=== PATIENT | male | born 1970 | race Hispanic/Latino ===

== ENCOUNTER 2017-01-27 23:55 | Observation (INO) | payer MEDICAID ==
[2017-01-28] MEDS ORDERED: Enoxaparin 40 mg Syringe SC STA (02:57)
[2017-01-28] MEDS ORDERED: Oxycodone/Acetaminophen 5/325 mg Tab PO STA (02:57)
[2017-01-28] MEDS ORDERED: Oxycodone/Acetaminophen 5/325 mg Tab ONE (03:03)
[2017-01-28] MEDS ORDERED: Enoxaparin 80 mg Syringe ONE (03:03)
[2017-01-28] MEDS ORDERED: Enoxaparin 30 mg Syringe ONE (03:03)
[2017-01-28 03:29] LABS: BASO % 1.5 % (0.0-2.0); EOS # 0.2 K/uL (0.0-0.7); EOS % 10.5 % (0.0-4.0); HEMOGLOBIN 10.4 g/dL (12.0-18.0); LYMPH # 0.9 K/uL (1.0-4.3); LYMPH % 37.9 % (20.0-40.0); MEAN CELL VOLUME 86.4 fL (80.0-94.0); MEAN CORPUSCULAR HEMOGLOBIN 29.1 pg (27.0-31.0); MEAN CORPUSCULAR HGB CONC 33.7 g/dL (33.0-37.0); MEAN PLATELET VOLUME 7.9 fL (7.2-11.7); MONO # 0.2 K/uL (0.0-0.8); MONO % 6.5 % (0.0-10.0); NEUT % 43.6 % (50.0-75.0); NRBC % 0.1 % (0.0-2.0); RBC 3.57 Mil/uL (4.40-5.90); RED CELL DISTRIBUTION WIDTH 16.1 % (11.5-14.5); WHITE BLOOD COUNT 2.3 K/uL (4.8-10.8)
[2017-01-28 03:31] LABS: ALBUMIN 3.5 g/dL (3.5-5.0)
[2017-01-28 03:33] LABS: GFR AFRICAN-AMERICAN > 60; GFR NON-AFRICAN AMERICAN > 60
[2017-01-28 03:34] LABS: ALT/SGPT 35 U/L (21-72); AST/SGOT 29 U/L (17-59); BLOOD UREA NITROGEN 15 mg/dL (9-20); CALCIUM 8.5 mg/dl (8.6-10.4)
[2017-01-28 03:43] LABS: B-TYPE NATRIURETIC PEPTIDE 153 pg/mL (0-450)
--- NOTE | 2017-01-28 05:21 | CP.PCM.HP ---
<Phyllis Mosqueda - Last Filed: 01/28/17 09:09> History of Present Illness - History of Present Illness History of Present Illness: Medicine Note CC: right leg pain HPI: 46M with PMHx of recurrent DVTs, IVC, AIDS, Seizures, and Anxiety presented to the ED complaining of chronic right leg. Patient admits to right leg pain that has worsened over the past 3 days. Patient had chronic reccurrent leg pain due to recurrent DVTs. Patient initially was started on lovenox and coumadin when he had the IVC filter placed in 2003. He was later switched to Xarelto (Elliquis was not an option since it was not covered by insurance). Patient reports he was seen in [facility], where US was performed revealing these results: prob thrombophlebitis of R thigh, collaterals from R femoral vein DVT, a newly developed DVT from prior one. A new PO anticoagulation regimen recommended. Patient reports he is not as compliant with his medications as he should be but he feels discouraged to continue taking the Xarelto since he still developed a DVT in September while being on Xarelto. Admitted to right leg pain, TTP, especiall near medial thigh, pain at rest, pain worse with ambulation. Denied fever, chills, headache, chest pain, SOB, abdominal pain, n/v/d/c, or urinary symptoms. PMHx: recurrent DVTs, IVC, AIDS, Seizures, anxiety, depression PSHx: IVC filter, cholecystectotomy Meds: As per SEP All: As per SEP SHx: Admits to smoking 1/2 PPD for the past 10-15 years, social drinking, and occasionally (every 1-2 months cocaine use, last use was last month) FHx: Unremarkable Present on Admission - Present on Admission Any Indicators Present on Admission: No Review of Systems - Constitutional Constitutional: absent: Anorexia, Fever - EENT Eyes: absent: Change in Vision, Loss of Vision Ears: absent: Dizziness Nose/Mouth/Throat: absent: Dry Mouth, Mouth Lesions - Cardiovascular Cardiovascular: absent: Chest Pain, Chest Pain at Rest - Respiratory Respiratory: absent: Cough - Gastrointestinal Gastrointestinal: absent: Abdominal Pain, Nausea, Vomiting - Genitourinary Genitourinary: absent: Dysuria, Hematuria, Pyuria - Musculoskeletal Musculoskeletal: absent: Back Pain - Integumentary Integumentary: Non-Healing Lesions, Swelling - Neurological Neurological: absent: Numbness, Focal Weakness, Tingling, Weakness - Psychiatric Psychiatric: Anxiety. absent: Depression - Hematologic/Lymphatic Hematologic: absent: Easy Bleeding, Easy Bruising Past Patient History - Infectious Disease Hx of Infectious Diseases: None - Tetanus Immunizations Tetanus Immunization: Unknown - Past Medical History & Family History Past Medical History?: Yes - Past Social History Smoking Status: Heavy Smoker > 10 Cigarettes Daily - PULMONARY Hx Asthma: Yes Hx Chronic Obstructive Pulmonary Disease (COPD): Yes Hx Pneumonia: Yes - NEUROLOGICAL Hx Seizures: Yes - HEMATOLOGICAL/ONCOLOGICAL Hx AIDS: Yes (2010) Hx Anemia: Yes - INTEGUMENTARY Hx Fernandez: Yes (chronic right lowet extremity) - MUSCULOSKELETAL/RHEUMATOLOGICAL Hx Falls: No - GASTROINTESTINAL Hx Gall Bladder Disease: Yes - PSYCHIATRIC Hx Anxiety: Yes Hx Depression: Yes Hx Substance Use: Yes - SURGICAL HISTORY Hx Cholecystectomy: Yes (december) - ANESTHESIA Hx Anesthesia: Yes Hx Anesthesia Reactions: No Meds Allergies/Adverse Reactions: Allergies Allergy/AdvReac Type Severity Reaction Status Date / Time cefaclor [From Ceclor] Allergy Severe URTICARIA Verified 01/28/17 00:11 piperacillin sodium Allergy Severe Verified 01/28/17 00:11 [From Zosyn] sulfamethoxazole Allergy Severe FEVER Verified 01/28/17 00:11 [From Bactrim] tazobactam sodium Allergy Severe Verified 01/28/17 00:11 [From Zosyn] trimethoprim [From Bactrim] Allergy Severe FEVER Verified 01/28/17 00:11 Physical Exam - Constitutional Appears: No Acute Distress - Head Exam Head Exam: NORMAL INSPECTION, NORMOCEPHALIC - Eye Exam Eye Exam: EOMI, Normal appearance, PERRL Pupil Exam: NORMAL ACCOMODATION - ENT Exam ENT Exam: Mucous Membranes Moist - Neck Exam Neck exam: Positive for: Normal Inspection. Negative for: Tenderness, Thyromegaly - Respiratory Exam Respiratory Exam: Clear to Auscultation Bilateral, NORMAL BREATHING PATTERN. absent: Rhonchi, Wheezes - Cardiovascular Exam Cardiovascular Exam: REGULAR RHYTHM, RRR, +S1, +S2 - GI/Abdominal Exam GI & Abdominal Exam: Normal Bowel Sounds, Soft. absent: Distended, Tenderness - Extremities Exam Extremities exam: Positive for: normal inspection, pedal pulses present. Negative for: pedal edema, tenderness - Neurological Exam Neurological exam: Alert, Oriented x3 - Psychiatric Exam Psychiatric exam: Normal Affect, Normal Mood - Skin Skin Exam: Dry, Intact, Normal Color, Warm Results - Vital Signs Recent Vital Signs: Last Vital Signs Temp 98.4 F 01/28/17 00:11 Pulse 72 01/28/17 00:11 Resp 18 01/28/17 00:11 BP 110/77 01/28/17 00:11 Pulse Ox 98 01/28/17 00:11 - Labs Result Diagrams: 01/28/17 03:18 01/28/17 03:18 Labs: Laboratory Results - last 24 hr 01/28/17 01/28/17 01/28/17 03:18 03:18 03:18 WBC 2.3 L RBC 3.57 L Hgb 10.4 L Hct 30.8 L MCV 86.4 MCH 29.1 MCHC 33.7 RDW 16.1 H Plt Count 152 MPV 7.9 Neut % (Auto) 43.6 L Lymph % (Auto) 37.9 [place] % (Auto) 6.5 Eos % (Auto) 10.5 H Baso % (Auto) 1.5 Neut # 1.0 L Lymph # 0.9 L [place] # 0.2 Eos # 0.2 Baso # 0.0 D-Dimer, Quantitative 375 H Sodium 139 Potassium 3.8 Chloride 106 Carbon Dioxide 23 Anion Gap 13 BUN 15 Creatinine 0.9 Est GFR ( Amer) > 60 Est GFR (Non-Af Amer) > 60 Random Glucose 104 Calcium 8.5 L Total Bilirubin 0.4 AST 29 ALT 35 Alkaline Phosphatase 87 Troponin I < 0.0120 NT-Pro-B Natriuret Pep 153 Total Protein 6.8 Albumin 3.5 Globulin 3.3 Albumin/Globulin Ratio 1.0 Assessment & Plan - Assessment and Plan (Free Text) Assessment: 46M with PMHx of recurrent DVTs, IVC, AIDS, Seizures, and Anxiety presented to the ED complaining of chronic right leg. Plan: Right Leg Pain secondary to recurrent DVTs * Hx of IVC - placed in 2003 * Visit to [facility] on 09/26/16, where US was performed revealing these results : prob thrombophlebitis of R thigh, collaterals from R femoral vein DVT, a newly developed DVT from prior one. * Started on Coumadin 7.5mg PO daily - follow up daily INR * Started Therapeutic Lovenox 110 SC Q12H * Neurontin 600mg PO TID * D- Dimer - elevated * F/U VENOUS DOPPLERS to r/o new DVT AIDS * Trivicay 50mg PO daily * Truvada 1 tab PO daily * Mepron 750mg PO daily Seizures * Restarted home medications: Keppra 750 PO daily Anxiety/ Depression * Restarted home medications: Seroquel 100mg PO QHS and Elavil 25mg PO daily Prophylactic Measures * GI PPX: Pepcid 20mg PO daily * DVT PPX: SCDs contraindicated, on therapeutic lovenox and Warfarin DW Jaylin Kendrick DO, PGY-1 <Gordo Marks P - Last Filed: 01/31/17 06:29> Results - Vital Signs Recent Vital Signs: Last Vital Signs Temp 98.0 F 01/30/17 23:30 Pulse 79 01/30/17 23:30 Resp 20 01/30/17 23:30 BP 148/96 H 01/31/17 06:00 Pulse Ox 95 01/30/17 23:30 - Labs Result Diagrams: 01/30/17 08:00 01/30/17 08:00 Labs: Laboratory Results - last 24 hr 01/29/17 01/30/17 01/30/17 07:55 08:00 08:00 WBC 2.1 L RBC 3.92 L Hgb 11.3 L Hct 33.9 L MCV 86.4 MCH 28.7 MCHC 33.2 RDW 16.8 H Plt Count 159 MPV 8.1 Neut % (Auto) 37.2 L Lymph % (Auto) 37.5 [place] % (Auto) 8.6 Eos % (Auto) 15.6 H Baso % (Auto) 1.1 Neut # 0.8 L Lymph # 0.8 L [place] # 0.2 Eos # 0.3 Baso # 0.0 Smear Path Review PT 12.3 H INR 1.1 Sodium Potassium Chloride Carbon Dioxide Anion Gap BUN Creatinine Est GFR ( Amer) Est GFR (Non-Af Amer) Random Glucose Calcium Magnesium Total Bilirubin AST ALT Alkaline Phosphatase Total Protein Albumin Globulin Albumin/Globulin Ratio 01/30/17 08:00 WBC RBC Hgb Hct MCV MCH MCHC RDW Plt Count MPV Neut % (Auto) Lymph % (Auto) [place] % (Auto) Eos % (Auto) Baso % (Auto) Neut # Lymph # [place] # Eos # Baso # Smear Path Review PT INR Sodium 142 Potassium 3.8 Chloride 107 Carbon Dioxide 28 Anion Gap 10 BUN 24 H Creatinine 1.0 Est GFR ( Amer) > 60 Est GFR (Non-Af Amer) > 60 Random Glucose 93 Calcium 9.0 Magnesium 2.0 Total Bilirubin 0.5 AST 32 ALT 26 Alkaline Phosphatase 83 Total Protein 6.8 Albumin 3.4 L Globulin 3.4 Albumin/Globulin Ratio 1.0 Attending/Attestation - Attestation I have personally seen and examined this patient.: Yes I have fully participated in the care of the patient.: Yes I have reviewed all pertinent clinical information: Yes
--- NOTE | 2017-01-28 05:31 | C.PDOC ---
History Of Present Illness A 46 y/o M c/o right upper thigh pain for 3 days. Denies weakness, numbness, fever, chills, nausea, vomiting, diarrhea, back pain, or any other complaints. Pt has a Hx of right femoral DVT and thrombophlebitis, chronic anticoagulation, and a Hx HIV and AIDS. Time Seen by Provider: 01/28/17 02:47 Chief Complaint (Nursing): Lower Extremity Problem/Injury History Per: Patient History/Exam Limitations: no limitations Onset/Duration Of Symptoms: Days Current Symptoms Are (Timing): Still Present Severity: Mild Recent travel outside of the [place]: No Additional History Per: Patient Past Medical History Reviewed: Historical Data, Nursing Documentation, Vital Signs Vital Signs: Last Vital Signs Temp 97.8 F 01/28/17 06:02 Pulse 65 01/28/17 06:02 Resp 16 01/28/17 06:02 BP 103/62 01/28/17 06:02 Pulse Ox 98 01/28/17 07:14 - Medical History PMH: Anemia, Anxiety, Asthma, COPD, Depression, Deep Vein Thrombosis, Gall Bladder Disease, HIV, Pneumonia, Seizures Surgical History: Cholecystectomy (december) Family History: States: Unknown Family Hx - Social History Hx Tobacco Use: Yes (heavy smoker) Hx Alcohol Use: No Hx Substance Use: Yes - Immunization History Hx Tetanus Toxoid Vaccination: No Hx Influenza Vaccination: Yes (06/2014) Hx Pneumococcal Vaccination: Yes (07/2014) Review Of Systems Except As Marked, All Systems Reviewed And Found Negative. Constitutional: Negative for: Fever, Chills Gastrointestinal: Negative for: Nausea, Vomiting, Diarrhea Musculoskeletal: Positive for: Leg Pain (Right upper thigh pain) Neurological: Negative for: Weakness, Numbness Physical Exam - Physical Exam Appears: Non-toxic, No Acute Distress Skin: Warm, Dry Head: Atraumatic, Normacephalic Eye(s): bilateral: Normal Inspection Oral Mucosa: Moist Cardiovascular: Rhythm Regular, No Murmur Respiratory: Normal Breath Sounds, No Accessory Muscle Use, No Rales, No Rhonchi , No Wheezing Gastrointestinal/Abdominal: Soft, No Tenderness Extremity: Normal ROM, Tenderness (Right medial thigh tenderness), No Pedal Edema, No Calf Tenderness, Capillary Refill (<2secs), No Swelling, Other ( Varicosities) Extremity: Bilateral: Normal Color And Temperature Neurological/Psych: Oriented x3, Normal Speech, Normal Cognition, Normal Motor, Normal Sensation, Other (No focal deficit) ED Course And Treatment - Laboratory Results Result Diagrams: 01/28/17 03:18 01/28/17 03:18 O2 Sat by Pulse Oximetry: 98 (RA) Pulse Ox Interpretation: Normal Medical Decision Making Medical Decision Making: Impression: A 46 y/o M with a c/o right upper thigh pain for 3 days. chronic R thigh DVT- US results from [facility] 10/12, h/o [place] Filter prob thrombophlebitis of R thigh, collaterals from R femoral vein DVT Lovenox given, consider new PO anticoagulation regimen. Disposition Doctor Will See Patient In The: Hospital Counseled Patient/Family Regarding: Studies Performed, Diagnosis - Disposition Disposition: HOSPITALIZED Disposition Time: 05:30 Condition: GOOD - Clinical Impression Clinical Impression: Deep venous thrombosis of lower extremity, Thrombophlebitis femoral vein - Scribe Statement The provider has reviewed the documentation as recorded by the [place] All medical record entries made by the [place] were at my direction and personally dictated by me. I have reviewed the chart and agree that the record accurately reflects my personal performance of the history, physical exam, medical decision making, and the department course for this patient. I have also personally directed, reviewed, and agree with the discharge instructions and disposition.
[2017-01-28] MEDS ORDERED: TIOTROPIUM BROMIDE INH SCH (10:00)
--- NOTE | 2017-01-28 10:15 | RAD ---
PROCEDURE: CHEST RADIOGRAPH, 1 VIEW HISTORY: Shortness of breath COMPARISON: 11/07/2014 FINDINGS: LUNGS: Mild venous congestion. PLEURA: No pneumothorax or pleural fluid seen. CARDIOVASCULAR: Cardiomegaly. OSSEOUS STRUCTURES: No significant abnormalities. VISUALIZED UPPER ABDOMEN: Normal. OTHER FINDINGS: None. IMPRESSION: Mild venous congestion. Cardiomegaly.
--- NOTE | 2017-01-28 10:51 | VASCLAB ---
PROCEDURE: Lower Extremity Venous Duplex Exam. HISTORY: Chronic right leg dvt, with new pain PRIORS: Last exam 2004,normal. TECHNIQUE: Bilateral common femoral, femoral, popliteal and posterior tibial, peroneal and great saphenous veins were evaluated. Flow was assessed with color Doppler, compressibility, assessment of phasic flow and augmentation response. Report prepared by PAULO Griffith FINDINGS: RIGHT: 1. Common Femoral Vein: 1.1. Compressibility - Fully compressible: Thrombus - None : Flow - Phasic: Augmentation -Normal: Reflux - None. 2. Femoral Vein: 2.1. Compressibility - Partial: Thrombus - None : Flow - Phasic: Augmentation -Normal: Reflux - Mild. 3. Popliteal Vein: 3.1. Compressibility - Partial: Thrombus - None : Flow - Phasic: Augmentation -Normal: Reflux - Mild. 4. Posterior Tibial Vein: 4.1. Compressibility - Fully compressible: Thrombus - None: Flow - Phasic: Augmentation -Normal: Reflux - None. 5. Peroneal Vein: 5.1. Compressibility - Fully compressible: Thrombus - None: Flow - Phasic: Augmentation -Normal: Reflux - None. 6. Great Saphenous Vein: 6.1. Compressibility - Fully compressible: Thrombus - None: Flow - Phasic: Augmentation - Normal: Reflux - Mild. LEFT: 1. Common Femoral Vein: 1.1. Compressibility - Fully compressible: Thrombus - None: Flow - Phasic: Augmentation -Normal: Reflux - None. 2. Femoral Vein: 2.1. Compressibility - Fully compressible: Thrombus - None: Flow - Phasic: Augmentation -Normal: Reflux - None. 3. Popliteal Vein: 3.1. Compressibility - Fully compressible: Thrombus - None : Flow - Phasic: Augmentation -Normal: Reflux - None. 4. Posterior Tibial Vein: 4.1. Compressibility - Fully compressible: Thrombus - None: Flow - Phasic: Augmentation -Normal: Reflux - None. 5. Peroneal Vein: 5.1. Compressibility - Fully compressible: Thrombus - None: Flow - Phasic: Augmentation -Normal: Reflux - None. 6. Great Saphenous Vein: 6.1. Compressibility - Fully compressible: Thrombus - None: Flow - Phasic: Augmentation - Normal: Reflux - Moderate. OTHER FINDINGS: IMPRESSION: Right: Partial chronic thrombosis of the right femoral and popliteal veins. Mild valvular incompetence of the right femoral, popliteal and great saphenous veins. Left: No evidence of deep or superficial vein thrombosis of the left lower extremity. Moderate valvular incompetence of the left great saphenous veins. Findings were reported by the dairy manufacturing technologist, jennifer Rodriguez on 01/28/2017 at 9:38 a.m.
[2017-01-28] MEDS: Enoxaparin 120 mg Syringe SC SCH ×2 (11:02→21:53)
[2017-01-28] MEDS: Emtricitabine-Tenofovir 200 mg-300 mg Tab PO SCH (11:03)
[2017-01-28 12:04] LABS: PROTHROMBIN TIME 11.3 SECONDS (9.7-12.2)
[2017-01-28] MEDS: Atovaquone 750 mg/5 ml Susp UD PO SCH (14:38)
--- NOTE | 2017-01-28 15:14 | CP.PCM.CON ---
History of Present Illness - History of Present Illness History of Present Illness: PGY2 Consult notice for Dr. 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 Pt's RLE pain is 2/2 to recurrent DVTs for which he has been taking Xarelto since about 2008. Patient initially was started on lovenox and coumadin when he had the IVC filter placed in 2003, however he was later bridged. He reports he was seen in [facility] in September of 2016, lower extremity u/s was performed revealing: thrombophlebitis of R thigh, collaterals from R femoral vein DVT, and a newly developed DVT. Additionally patient reports he is non-compliant with Xarelto as it interacts with his HIV medications (he must separate doses) and he forgets to take it at a later time. Denied f/c, headache, CP/SOB, abdominal pain, n/v/d/ c, or urinary symptoms. He complains of right lower extremity pain, tenderness to palpation of this area, and pain at rest that is worse with ambulation. Pt appears very lethargic and sleepy while providing history and examination. He reports that he has not slept in several days due to pain from the RLE. He denies use of any illicit substances. PMHx: recurrent DVTs s/p IVC filter, AIDS, Seizures, anxiety, depression PSHx: IVC filter, cholecystectotomy Meds: As per SEP All: As per SEP SHx: 10 pack year hx of tobacco, social drinking, and occasional cocaine use (1- 2x per month, last used one month ago) FHx: denied Review of Systems - Constitutional Constitutional: absent: Chills, Fever - EENT Eyes: absent: Blurred Vision, Change in Vision - Cardiovascular Cardiovascular: absent: Chest Pain, Diaphoresis, Dyspnea - Respiratory Respiratory: absent: Cough, Dyspnea, Hemoptysis - Gastrointestinal Gastrointestinal: absent: Abdominal Pain - Musculoskeletal Musculoskeletal: As Per HPI - Neurological Neurological: absent: Dizziness, Numbness, Headaches, Syncope Past Patient History - Infectious Disease Hx of Infectious Diseases: None - Tetanus Immunizations Tetanus Immunization: Unknown - Past Medical History & Family History Past Medical History?: Yes - Past Social History Smoking Status: Heavy Smoker > 10 Cigarettes Daily - PULMONARY Hx Asthma: Yes Hx Chronic Obstructive Pulmonary Disease (COPD): Yes Hx Pneumonia: Yes - NEUROLOGICAL Hx Seizures: Yes - HEMATOLOGICAL/ONCOLOGICAL Hx AIDS: Yes (2010) Hx Anemia: Yes - INTEGUMENTARY Hx Fernandez: Yes (chronic right lowet extremity) - MUSCULOSKELETAL/RHEUMATOLOGICAL Hx Falls: No - GASTROINTESTINAL Hx Gall Bladder Disease: Yes - PSYCHIATRIC Hx Anxiety: Yes Hx Depression: Yes Hx Substance Use: Yes - SURGICAL HISTORY Hx Cholecystectomy: Yes (december) - ANESTHESIA Hx Anesthesia: Yes Hx Anesthesia Reactions: No Meds Allergies/Adverse Reactions: Allergies Allergy/AdvReac Type Severity Reaction Status Date / Time cefaclor [From Ceclor] Allergy Severe URTICARIA Verified 01/28/17 00:11 piperacillin sodium Allergy Severe Verified 01/28/17 00:11 [From Zosyn] sulfamethoxazole Allergy Severe FEVER Verified 01/28/17 00:11 [From Bactrim] tazobactam sodium Allergy Severe Verified 01/28/17 00:11 [From Zosyn] trimethoprim [From Bactrim] Allergy Severe FEVER Verified 01/28/17 00:11 - Medications Medications: Current Medications Acetaminophen (Tylenol 325mg Tab) 650 mg PO Q6 [facility] Last Admin: 01/28/17 11:12 Dose: 650 mg Amitriptyline HCl (Elavil) 25 mg PO DAILY [facility] Last Admin: 01/28/17 11:04 Dose: 25 mg Atovaquone (Mepron) 750 mg PO DAILY [facility] Last Admin: 01/28/17 14:38 Dose: 750 mg Dolutegravir Sodium (Tivicay) 50 mg PO DAILY [facility] Last Admin: 01/28/17 11:04 Dose: 50 mg Emtricitabine/Tenofovir (Truvada 200 Mg-300 Mg) 1 tab PO DAILY [facility] Last Admin: 01/28/17 11:03 Dose: 1 tab Enoxaparin Sodium (Lovenox) 110 mg SC Q12 [facility] Last Admin: 01/28/17 11:02 Dose: 110 mg Famotidine (Pepcid) 20 mg PO DAILY [facility] Last Admin: 01/28/17 11:04 Dose: 20 mg Gabapentin (Neurontin) 600 mg PO TID [facility] Last Admin: 01/28/17 14:45 Dose: 600 mg Levetiracetam (Keppra) 750 mg PO DAILY [facility] Last Admin: 01/28/17 11:04 Dose: 750 mg Quetiapine Fumarate (Seroquel) 100 mg PO HS [facility] Tiotropium [place] (Spiriva) 18 mcg INH RQ24 [facility] Warfarin Sodium (Coumadin) 7.5 mg PO 1800 [facility] Stop: 01/28/17 18:01 Physical Exam - Constitutional Appears: No Acute Distress Additional comments: very lethargic - Eye Exam Eye Exam: EOMI Pupil Exam: PERRL - ENT Exam ENT Exam: Mucous Membranes Moist - Respiratory Exam Respiratory Exam: Clear to Auscultation Bilateral, NORMAL BREATHING PATTERN. absent: Rales, Rhonchi, Wheezes, Respiratory Distress - Cardiovascular Exam Cardiovascular Exam: REGULAR RHYTHM, RRR, +S1, +S2 - GI/Abdominal Exam GI & Abdominal Exam: Soft. absent: Distended, Tenderness - Extremities Exam Extremities exam: Positive for: calf tenderness, pedal pulses present Additional comments: Pt has extensive venous stasis with associated integumentary and musculoskeletal changes. Diffuse ecchymosis of the RLE. pt is exquisitely TTP in the RLE. DP Pulses are palpable b/l however slightly faint on the RLE. Results - Vital Signs Recent Vital Signs: Last Vital Signs Temp 97.3 F L 01/28/17 07:57 Pulse 63 01/28/17 07:57 Resp 18 01/28/17 07:57 BP 100/58 L 01/28/17 07:57 Pulse Ox 97 01/28/17 07:57 - Labs Result Diagrams: 01/28/17 03:18 01/28/17 03:18 Labs: Laboratory Results - last 24 hr 01/28/17 11:53 PT 11.3 INR 1.0 Assessment & Plan - Assessment and Plan (Free Text) Assessment: 46 y/o M with hx of recurrent DTVs a/p IVC filter, AIDS, seizures and anxiety p/ w acute RLE pain 2/2 DVT Plan: RLE pain 2/2 DVT S/P IVC filter Stop Xarelto Start lovenox 120mcg SC q12hrs Start coumadin 7.5mg qhs F/u am INR F/u Echo F/u lower extremity dopplers c/w neurontin 600mg PO TID AIDS Trivicay 50mg PO daily Truvada 1 tab PO daily Mepron 750mg PO daily Seizures Restarted home med: Keppra 750 PO daily Anxiety/ Depression Restarted home med: Seroquel 100mg PO QHS and Elavil 25mg PO daily Prophylactic Measures GI PPX: Pepcid 20mg PO daily Case discussed with Dr. Gomez who will be seeing the patient in the morning
[2017-01-28 15:36] VITALS: RESP 20
--- NOTE | 2017-01-28 18:00 | CP.PCM.PN ---
<ReneeBret R - Last Filed: 01/28/17 17:57> Subjective - Date & Time of Evaluation Date of Evaluation: 01/28/17 Time of Evaluation: 12:00 - Subjective Subjective: Patient was seen and examined at bedside. Pt appears very lethargic and sleepy while providing history and examination. He reports that he has not slept in several days due to pain from the RLE. Patient states he is not compliant with his AIDS or DVT medications. Patient denied chest pain, shortness of breath, headache, vomiting, diarrhea, fever. Objective - Vital Signs/Intake and Output Vital Signs (last 24 hours): Temp Pulse Resp BP Pulse Ox 97.9 F 62 20 112/74 96 01/28/17 15:33 01/28/17 15:33 01/28/17 15:33 01/28/17 15:33 01/28/17 15:33 Intake and Output: 01/28/17 01/28/17 06:59 18:59 Intake Total 760 Balance 760 - Medications Medications: Current Medications Acetaminophen (Tylenol 325mg Tab) 650 mg PO Q6 [facility] Last Admin: 01/28/17 17:42 Dose: 650 mg Amitriptyline HCl (Elavil) 25 mg PO DAILY [facility] Last Admin: 01/28/17 11:04 Dose: 25 mg Atovaquone (Mepron) 750 mg PO DAILY [facility] Last Admin: 01/28/17 14:38 Dose: 750 mg Dolutegravir Sodium (Tivicay) 50 mg PO DAILY [facility] Last Admin: 01/28/17 11:04 Dose: 50 mg Emtricitabine/Tenofovir (Truvada 200 Mg-300 Mg) 1 tab PO DAILY [facility] Last Admin: 01/28/17 11:03 Dose: 1 tab Enoxaparin Sodium (Lovenox) 110 mg SC Q12 [facility] Last Admin: 01/28/17 11:02 Dose: 110 mg Famotidine (Pepcid) 20 mg PO DAILY [facility] Last Admin: 01/28/17 11:04 Dose: 20 mg Gabapentin (Neurontin) 600 mg PO TID [facility] Last Admin: 01/28/17 17:42 Dose: 600 mg Levetiracetam (Keppra) 750 mg PO DAILY [facility] Last Admin: 01/28/17 11:04 Dose: 750 mg Quetiapine Fumarate (Seroquel) 100 mg PO HS [facility] Tiotropium [place] (Spiriva) 18 mcg INH RQ24 [facility] Warfarin Sodium (Coumadin) 7.5 mg PO 1800 [facility] Stop: 01/28/17 18:01 Last Admin: 01/28/17 17:42 Dose: 7.5 mg - Labs Labs: PT 11.3 SECONDS (9.7-12.2) 01/28/17 11:53 INR 1.0 01/28/17 11:53 - Constitutional Appears: No Acute Distress, Unkempt - Head Exam Head Exam: NORMAL INSPECTION, NORMOCEPHALIC - Eye Exam Eye Exam: EOMI, Normal appearance, PERRL - ENT Exam ENT Exam: Mucous Membranes Moist, Normal Exam - Neck Exam Neck Exam: Full ROM, Normal Inspection - Respiratory Exam Respiratory Exam: Clear to Ausculation Bilateral, NORMAL BREATHING PATTERN. absent: Wheezes - Cardiovascular Exam Cardiovascular Exam: REGULAR RHYTHM, +S1, +S2. absent: Murmur - GI/Abdominal Exam GI & Abdominal Exam: Soft, Normal Bowel Sounds. absent: Tenderness - Rectal Exam Rectal Exam: Deferred - Extremities Exam Extremities Exam: Calf Tenderness, Tenderness - Neurological Exam Neurological Exam: Awake, Oriented x3 - Psychiatric Exam Psychiatric exam: Flat Affect - Skin Skin Exam: Erythema Additional comments: rt lower leg Assessment and Plan - Assessment and Plan (Free Text) Assessment: 46M with PMHx of recurrent DVTs, IVC, AIDS, Seizures, and Anxiety presented to the ED complaining of chronic right leg. 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 * Hx of IVC - placed in 2003 * Visit to [facility] on 09/26/16, where US was performed revealing these results : prob thrombophlebitis of R thigh, collaterals from R femoral vein DVT, a newly developed DVT from prior one. * Stopped Xarelto * Started lovenox 120mcg SC q12 * Started on Coumadin 7.5mg PO daily - follow up daily INR * Started Therapeutic Lovenox 110 SC Q12H * Neurontin 600mg PO TID * ECHO ordered, f/u AIDS Pt states he has not been compliant with his AIDS medications. Pt reports a CD4 count of 280. Pt states he last saw his HIV doctor last Jun. * Trivicay 50mg PO daily * Truvada 1 tab PO daily * Mepron 750mg PO daily * ID consult, Dr Atkins, recs appreciated. Seizures * Restarted home medications: Keppra 750 PO daily Anxiety/ Depression * Restarted home medications: Seroquel 100mg PO QHS and Elavil 25mg PO daily Prophylactic Measures * GI PPX: Pepcid 20mg PO daily * DVT PPX: SCDs contraindicated, on therapeutic lovenox and Warfarin * Regular diet <Naa Car V - Last Filed: 01/28/17 23:07> Objective - Vital Signs/Intake and Output Vital Signs (last 24 hours): Temp Pulse Resp BP Pulse Ox 97.9 F 62 20 112/74 96 01/28/17 15:33 01/28/17 15:33 01/28/17 15:33 01/28/17 15:33 01/28/17 15:33 Intake and Output: 01/28/17 01/29/17 18:59 06:59 Intake Total 760 300 Output Total 500 Balance 760 -200 - Medications Medications: Current Medications Acetaminophen (Tylenol 325mg Tab) 650 mg PO Q6 [facility] Last Admin: 01/28/17 17:42 Dose: 650 mg Amitriptyline HCl (Elavil) 25 mg PO DAILY [facility] Last Admin: 01/28/17 11:04 Dose: 25 mg Atovaquone (Mepron) 750 mg PO DAILY [facility] Last Admin: 01/28/17 14:38 Dose: 750 mg Dolutegravir Sodium (Tivicay) 50 mg PO DAILY [facility] Last Admin: 01/28/17 11:04 Dose: 50 mg Emtricitabine/Tenofovir (Truvada 200 Mg-300 Mg) 1 tab PO DAILY [facility] Last Admin: 01/28/17 11:03 Dose: 1 tab Enoxaparin Sodium (Lovenox) 110 mg SC Q12 [facility] Last Admin: 01/28/17 21:53 Dose: 110 mg Famotidine (Pepcid) 20 mg PO DAILY [facility] Last Admin: 01/28/17 11:04 Dose: 20 mg Gabapentin (Neurontin) 600 mg PO TID [facility] Last Admin: 01/28/17 17:42 Dose: 600 mg Levetiracetam (Keppra) 750 mg PO DAILY [facility] Last Admin: 01/28/17 11:04 Dose: 750 mg Quetiapine Fumarate (Seroquel) 100 mg PO HS [facility] Last Admin: 01/28/17 21:53 Dose: 100 mg Tiotropium [place] (Spiriva) 18 mcg INH RQ24 [facility] - Labs Labs: PT 11.3 SECONDS (9.7-12.2) 01/28/17 11:53 INR 1.0 01/28/17 11:53 Attending/Attestation - Attestation I have personally seen and examined this patient.: Yes I have fully participated in the care of the patient.: Yes I have reviewed all pertinent clinical information, including history, physical exam and plan: Yes Notes (Text): Patient seen, examined and case discussed with day-time marketing summer intern. Patient reporting history of noncompliance on his HIV medications, reports prior CD4 count was 280 about 6 months ago, and history of recurrent with inconsistent use of Xarelto. Patient's medications: HIV medications, and PCP and ZAIN pophylaxis does reveal with Xarelto will cause high levels of xarelto in the body. Cardiology consulted, help appreciated. Patient will be bridge from Lovenox to Coumadin; received first dose tonight. Will f/u with infectious disease given patient's non compliance to HIV medications. Patient venous doppler confirms chronic thrombus. Patient is ordered for CT angio r/o pe given he has had a prior hx about 6 years ago and was diagnosed and treated for PE.
[2017-01-29] MEDS ORDERED: Iodixanol 320 MG/ML 100 ML BOTTLE IV ONE (01:03)
--- NOTE | 2017-01-29 03:04 | CT ---
EXAM: CT Angiography Chest With Intravenous Contrast CLINICAL HISTORY: 46 years old, male; Pain; Chest pain; Additional info: Elevated d-dimer, shortness of breathe TECHNIQUE: Axial computed tomographic angiography images of the chest with intravenous contrast using pulmonary embolism protocol. This CT exam was performed using one or more of the following dose reduction techniques: automated exposure control, adjustment of the mA and/or kV according to patient size, and/or use of iterative reconstruction technique. MIP reconstructed images were created and reviewed. Coronal and sagittal reformatted images were created and reviewed. CONTRAST: 100 mL of [id number] administered intravenously. EXAM DATE/TIME: Exam ordered 01/28/2017 11:06 PM COMPARISON: No relevant prior studies available. FINDINGS: Pulmonary arteries: No pulmonary embolism is seen to the level of the lobar pulmonary arterial branches bilaterally. The heterogeneous or decreased density of some segmental and subsegmental pulmonary arterial branches may reflect inadequate enhancement, or motion, flow, or partial voluming artifact rather than pulmonary emboli. In particular, substantial stairstep artifact see for example coronal series 601 image 99 greatly limits evaluation of the more peripheral vessels. Aorta: The aorta is markedly tortuous. Related to bolus timing the study is not optimal for evaluation of the great vessels of the arch, also noting artifact from crossing veins. No thoracic aortic aneurysm. Lungs: Lungs. 5 mm perifissural nodule right middle lobe special series 602 image 33. Dependent atelectatic changes bilaterally. Mild peribronchial thickening at the bases particularly the left. No definite findings of acute pneumonia. Pleural space: Unremarkable. No significant effusion. No pneumothorax. Heart: There are calcifications in keeping with coronary artery disease. Physiologic pericardial fluid. No evidence of RV dysfunction. Mediastinum: Air in the esophagus in keeping with reflux. Small hiatus hernia. Portions of the esophagus favored to be thick walled. Bones/joints: Degenerative spine changes. No acute fracture. No dislocation. Soft tissues: Unremarkable. Lymph nodes: Bilateral hilar nodes. Gallbladder and bile ducts: Upper abdomen cholecystectomy clips, intrahepatic biliary air. Right hydronephrosis. Other findings: No previous studies are available, prior report from 11-19-2014 reviewed. IMPRESSION: Pulmonary arteries as above, with no large or central embolus , but significant limitations beyond the lobar level. No thoracic aortic aneurysm. Right hydronephrosis, incompletely imaged. As per Fleischner Society guidelines for follow-up and management of pulmonary nodules: For patients at low risk (minimal or absent history of smoking and of other known risk factors), recommend follow-up chest CT at 12 months; if unchanged, no further follow-up. For patient at high risk (history of smoking or of other known risk factors), recommend initial follow-up chest CT at 6-12 months, then at 18-24 months if no interval change. Please compare imaging on site, there are no previous studies available for review.
--- NOTE | 2017-01-29 06:41 | CP.PCM.PN ---
Subjective - Date & Time of Evaluation Date of Evaluation: 01/29/17 Time of Evaluation: 06:41 Objective - Vital Signs/Intake and Output Vital Signs (last 24 hours): Temp Pulse Resp BP Pulse Ox 98.4 F 65 20 113/72 97 01/28/17 23:45 01/28/17 23:45 01/28/17 23:45 01/28/17 23:45 01/28/17 23:45 Intake and Output: 01/28/17 01/29/17 18:59 06:59 Intake Total 760 300 Output Total 500 Balance 760 -200 - Medications Medications: Current Medications Acetaminophen (Tylenol 325mg Tab) 650 mg PO Q6 [facility] Last Admin: 01/29/17 06:16 Dose: 650 mg Amitriptyline HCl (Elavil) 25 mg PO DAILY [facility] Last Admin: 01/28/17 11:04 Dose: 25 mg Atovaquone (Mepron) 750 mg PO DAILY [facility] Last Admin: 01/28/17 14:38 Dose: 750 mg Dolutegravir Sodium (Tivicay) 50 mg PO DAILY [facility] Last Admin: 01/28/17 11:04 Dose: 50 mg Emtricitabine/Tenofovir (Truvada 200 Mg-300 Mg) 1 tab PO DAILY [facility] Last Admin: 01/28/17 11:03 Dose: 1 tab Enoxaparin Sodium (Lovenox) 110 mg SC Q12 [facility] Last Admin: 01/28/17 21:53 Dose: 110 mg Famotidine (Pepcid) 20 mg PO DAILY [facility] Last Admin: 01/28/17 11:04 Dose: 20 mg Gabapentin (Neurontin) 600 mg PO TID [facility] Last Admin: 01/28/17 17:42 Dose: 600 mg Levetiracetam (Keppra) 750 mg PO DAILY [facility] Last Admin: 01/28/17 11:04 Dose: 750 mg Quetiapine Fumarate (Seroquel) 100 mg PO HS [facility] Last Admin: 01/28/17 21:53 Dose: 100 mg Tiotropium [place] (Spiriva) 18 mcg INH RQ24 [facility] - Labs Labs: PT 11.3 SECONDS (9.7-12.2) 01/28/17 11:53 INR 1.0 01/28/17 11:53
[2017-01-29] MEDS: Tiotropium 18 mcg Cap For Inhalation INH SCH (07:56)
[2017-01-29 08:14] LABS: ALBUMIN 3.4 g/dL (3.5-5.0); PROTHROMBIN TIME 11.8 SECONDS (9.7-12.2)
[2017-01-29 08:16] LABS: GFR AFRICAN-AMERICAN > 60; GFR NON-AFRICAN AMERICAN > 60
[2017-01-29 08:17] LABS: ALT/SGPT 32 U/L (21-72); AST/SGOT 27 U/L (17-59); BLOOD UREA NITROGEN 15 mg/dL (9-20); CALCIUM 8.7 mg/dl (8.6-10.4)
[2017-01-29 08:22] LABS: BASO % 1.5 % (0.0-2.0); EOS # 0.3 K/uL (0.0-0.7); EOS % 15.6 % (0.0-4.0); HEMOGLOBIN 10.7 g/dL (12.0-18.0); LYMPH # 0.5 K/uL (1.0-4.3); LYMPH % 31.4 % (20.0-40.0); MEAN CELL VOLUME 86.2 fL (80.0-94.0); MEAN CORPUSCULAR HEMOGLOBIN 28.4 pg (27.0-31.0); MEAN CORPUSCULAR HGB CONC 32.9 g/dL (33.0-37.0); MONO # 0.1 K/uL (0.0-0.8); NEUT # 0.7 K/uL (1.8-7.0); NEUT % 43.5 % (50.0-75.0); NRBC % 0.5 % (0.0-2.0); RBC 3.77 Mil/uL (4.40-5.90); RED CELL DISTRIBUTION WIDTH 16.8 % (11.5-14.5)
[2017-01-29 08:37] LABS: WHITE BLOOD COUNT 1.7 K/uL (4.8-10.8)
[2017-01-29] MEDS: Emtricitabine-Tenofovir 200 mg-300 mg Tab PO SCH (10:22)
[2017-01-29] MEDS: Atovaquone 750 mg/5 ml Susp UD PO SCH (10:22)
[2017-01-29] MEDS: Enoxaparin 120 mg Syringe SC SCH ×2 (10:22→22:25)
--- NOTE | 2017-01-29 12:20 | CP.PCM.PN ---
<Naa Car V - Last Filed: 01/29/17 17:13> Objective - Vital Signs/Intake and Output Vital Signs (last 24 hours): Temp Pulse Resp BP Pulse Ox 97.9 F 72 20 112/74 97 01/29/17 16:00 01/29/17 16:00 01/29/17 16:00 01/29/17 16:00 01/29/17 16:00 Intake and Output: 01/29/17 01/29/17 06:59 18:59 Intake Total 300 Output Total 500 Balance -200 - Medications Medications: Current Medications Acetaminophen (Tylenol 325mg Tab) 650 mg PO Q6 [facility] Last Admin: 01/29/17 17:07 Dose: Not Given Amitriptyline HCl (Elavil) 25 mg PO DAILY [facility] Last Admin: 01/29/17 10:22 Dose: 25 mg Atovaquone (Mepron) 750 mg PO DAILY [facility] Last Admin: 01/29/17 10:22 Dose: 750 mg Dolutegravir Sodium (Tivicay) 50 mg PO DAILY [facility] Last Admin: 01/29/17 10:22 Dose: 50 mg Emtricitabine/Tenofovir (Truvada 200 Mg-300 Mg) 1 tab PO DAILY [facility] Last Admin: 01/29/17 10:22 Dose: 1 tab Enoxaparin Sodium (Lovenox) 110 mg SC Q12 [facility] Last Admin: 01/29/17 10:22 Dose: 110 mg Famotidine (Pepcid) 20 mg PO DAILY [facility] Last Admin: 01/29/17 10:26 Dose: 20 mg Gabapentin (Neurontin) 600 mg PO TID [facility] Last Admin: 01/29/17 17:06 Dose: 600 mg Levetiracetam (Keppra) 750 mg PO DAILY [facility] Last Admin: 01/29/17 10:22 Dose: 750 mg Oxycodone HCl (Oxycodone Immediate Release Tab) 5 mg PO Q6 PRN PRN Reason: Pain, severe (8-10) Last Admin: 01/29/17 14:39 Dose: 5 mg Quetiapine Fumarate (Seroquel) 100 mg PO HS [facility] Last Admin: 01/28/17 21:53 Dose: 100 mg Tiotropium [place] (Spiriva) 18 mcg INH RQ24 [facility] Last Admin: 01/29/17 07:56 Dose: 18 mcg - Labs Labs: 01/29/17 07:55 01/29/17 07:55 PT 11.8 SECONDS (9.7-12.2) 01/29/17 07:55 INR 1.0 01/29/17 07:55 Attending/Attestation - Attestation I have personally seen and examined this patient.: Yes I have fully participated in the care of the patient.: Yes I have reviewed all pertinent clinical information, including history, physical exam and plan: Yes Notes (Text): Patient seen, examined and case discussed with day-time internal medicine physician assistant. Patient seen this morning. Patient is awake, alert, and reports he slept well overnight. Patient does not remember me from his prior conversation from yesterday but does confirm the details in terms of his noncompliance with medications for both HIV and Recurrent clot. Discussed result of CT Chest with the patient; patient is aware he has pulmonary nodules. Patient is also a current smoker. Patient offered nictone patch and patient outright refuses. Discussed risks associated with continued smoking including but not limited to cancer. Patient also understands if he continues to not remain compliant on his on med Discussed with infectious disease-->will come see the patient tomorrow Patient currently therapeutic Lovenox and being transition to Coumadin. Patient to receive Coumadin 7.5mg PO X1. Discussed with nursing staff, to place patient on neutropenic precautions. patient is afebrile. CT Chest does not show pneumonia. Patient started on narcotic prn to help with right DVT leg pain. 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 * Hx of IVC - placed in 2003 * Visit to [facility] on 09/26/16, where US was performed revealing these results : prob thrombophlebitis of R thigh, collaterals from R femoral vein DVT, a newly developed DVT from prior one. * CT angio chest ordered to r/o PE, impression: "Pulmonary arteries as above, with no large or central embolus, but significant limitations beyond the lobar level. No thoracic aortic aneurysm. Right hydronephrosis, incompletely imaged. 5mm perifissural nodule right middle lobe. As per Fleischner Society guidelines for follow-up and management of pulmonary nodules: For patients at low risk ( minimal or absent history of smoking and of other known risk factors), recommend follow-up chest CT at 12 months; if unchanged, no further follow-up. For patient at high risk (history of smoking or of other known risk factors), recommend initial follow-up chest CT at 6-12 months, then at 18-24 months if no interval change" * Stopped Xarelto * Started lovenox 110mcg SC q12 for bridge to coumadin * Started on Coumadin 7.5mg PO daily - follow up daily INR * Neurontin 600mg PO TID * ECHO ordered, f/u * oxycodone 5mg po q6 prn for pain * Patient reports he has IVC filter. 2) HIV+ * Pt states he has not been compliant with his HIV medications. Pt reports a CD4 count of 280 as of 6 months ago. Pt states he last saw his HIV doctor last Jun. Patient has not being taking his medications. Instructed he will build resistance against his HIV medication therapy if he remains inconsistent * Trivicay 50mg PO daily * Truvada 1 tab PO daily * Mepron 750mg PO daily * ID consult, Dr Atkins, recs appreciated. * neutropenic precautions 3) History of Seizures * Restarted home medications: Keppra 750 PO daily * Seizure precautions 4) Anxiety/ Depression * Restarted home medications: Seroquel 100mg PO QHS and Elavil 25mg PO daily 5) Prophylactic Measures * GI PPX: Pepcid 20mg PO daily * DVT PPX: SCDs contraindicated secondary DVT, on therapeutic lovenox and Warfarin * Regular diet Disposition: * Patient is currently being transitioned off from therapuetic Lovenox to Coumadin for recurrent DVT. <Bret Duran - Last Filed: 01/29/17 18:07> Subjective - Date & Time of Evaluation Date of Evaluation: 01/29/17 Time of Evaluation: 09:00 - Subjective Subjective: Patient was seen and examined at bedside. Patient was not in acute distress. Pt is much more conversational and energetic today. Pt states tylenol is not controlling his pain. He complains of mild headaches. Pt denies fever, diarrhea , vomiting, chest pain, shortness of breath. Objective - Vital Signs/Intake and Output Vital Signs (last 24 hours): Temp Pulse Resp BP Pulse Ox 97.6 F 80 20 121/83 98 01/29/17 07:00 01/29/17 07:57 01/29/17 07:00 01/29/17 07:00 01/29/17 07:00 Intake and Output: 01/29/17 01/29/17 06:59 18:59 Intake Total 300 Output Total 500 Balance -200 - Medications Medications: Current Medications Acetaminophen (Tylenol 325mg Tab) 650 mg PO Q6 [facility] Last Admin: 01/29/17 06:16 Dose: 650 mg Amitriptyline HCl (Elavil) 25 mg PO DAILY [facility] Last Admin: 01/29/17 10:22 Dose: 25 mg Atovaquone (Mepron) 750 mg PO DAILY [facility] Last Admin: 01/29/17 10:22 Dose: 750 mg Dolutegravir Sodium (Tivicay) 50 mg PO DAILY [facility] Last Admin: 01/29/17 10:22 Dose: 50 mg Emtricitabine/Tenofovir (Truvada 200 Mg-300 Mg) 1 tab PO DAILY [facility] Last Admin: 01/29/17 10:22 Dose: 1 tab Enoxaparin Sodium (Lovenox) 110 mg SC Q12 [facility] Last Admin: 01/29/17 10:22 Dose: 110 mg Famotidine (Pepcid) 20 mg PO DAILY [facility] Last Admin: 01/29/17 10:26 Dose: 20 mg Gabapentin (Neurontin) 600 mg PO TID [facility] Last Admin: 01/29/17 10:26 Dose: 600 mg Levetiracetam (Keppra) 750 mg PO DAILY [facility] Last Admin: 01/29/17 10:22 Dose: 750 mg Oxycodone HCl (Oxycodone Immediate Release Tab) 5 mg PO Q6 PRN PRN Reason: Pain, severe (8-10) Quetiapine Fumarate (Seroquel) 100 mg PO HS [facility] Last Admin: 01/28/17 21:53 Dose: 100 mg Tiotropium [place] (Spiriva) 18 mcg INH RQ24 [facility] Last Admin: 01/29/17 07:56 Dose: 18 mcg - Labs Labs: 01/29/17 07:55 01/29/17 07:55 PT 11.8 SECONDS (9.7-12.2) 01/29/17 07:55 INR 1.0 01/29/17 07:55 - Constitutional Appears: Well - Head Exam Head Exam: ATRAUMATIC, NORMAL INSPECTION, NORMOCEPHALIC - Eye Exam Eye Exam: EOMI, Normal appearance, PERRL - ENT Exam ENT Exam: Mucous Membranes Moist, Normal Exam - Neck Exam Neck Exam: Full ROM, Normal Inspection. absent: Lymphadenopathy - Respiratory Exam Respiratory Exam: Clear to Ausculation Bilateral, NORMAL BREATHING PATTERN - GI/Abdominal Exam GI & Abdominal Exam: Soft, Normal Bowel Sounds. absent: Tenderness - Rectal Exam Rectal Exam: Deferred - Extremities Exam Extremities Exam: Full ROM, Normal Inspection, Tenderness. absent: Joint Swelling, Pedal Edema Additional comments: erythema of rt leg warth of rt leg tender to palpation of right leg - Neurological Exam Neurological Exam: Alert, Awake, Oriented x3 - Psychiatric Exam Psychiatric exam: Normal Affect, Normal Mood - Skin Skin Exam: Erythema Assessment and Plan - Assessment and Plan (Free Text) Assessment: 46M with PMHx of recurrent DVTs, IVC, AIDS, Seizures, and Anxiety presented to the ED complaining of chronic right leg. 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 * Hx of IVC - placed in 2003 * Visit to [facility] on 09/26/16, where US was performed revealing these results : prob thrombophlebitis of R thigh, collaterals from R femoral vein DVT, a newly developed DVT from prior one. * CT angio chest ordered to r/o PE, impression: "Pulmonary arteries as above, with no large or central embolus, but significant limitations beyond the lobar level. No thoracic aortic aneurysm. Right hydronephrosis, incompletely imaged. 5mm perifissural nodule right middle lobe. As per Fleischner Society guidelines for follow-up and management of pulmonary nodules: For patients at low risk ( minimal or absent history of smoking and of other known risk factors), recommend follow-up chest CT at 12 months; if unchanged, no further follow-up. For patient at high risk (history of smoking or of other known risk factors), recommend initial follow-up chest CT at 6-12 months, then at 18-24 months if no interval change" * Stopped Xarelto * Started lovenox 110mcg SC q12 for bridge to coumadin * Started on Coumadin 7.5mg PO daily - follow up daily INR * Neurontin 600mg PO TID * ECHO ordered, f/u * oxycodone 5mg po q6 prn for pain AIDS Pt states he has not been compliant with his AIDS medications. Pt reports a CD4 count of 280. Pt states he last saw his HIV doctor last Jul.04: wbc 1.7 * Trivicay 50mg PO daily * Truvada 1 tab PO daily * Mepron 750mg PO daily * ID consult, Dr Atkins, recs appreciated. * neutropenic precautions Seizures * Restarted home medications: Keppra 750 PO daily Anxiety/ Depression * Restarted home medications: Seroquel 100mg PO QHS and Elavil 25mg PO daily Prophylactic Measures * GI PPX: Pepcid 20mg PO daily * DVT PPX: SCDs contraindicated, on therapeutic lovenox and Warfarin * Regular diet
[2017-01-29] MEDS: oxyCODONE 5 mg Immediate Release Tab PO PRN ×2 (14:39→19:35)
[2017-01-30 08:18] LABS: BASO % 1.1 % (0.0-2.0); EOS # 0.3 K/uL (0.0-0.7); EOS % 15.6 % (0.0-4.0); HEMOGLOBIN 11.3 g/dL (12.0-18.0); LYMPH # 0.8 K/uL (1.0-4.3); LYMPH % 37.5 % (20.0-40.0); MEAN CELL VOLUME 86.4 fL (80.0-94.0); MEAN CORPUSCULAR HEMOGLOBIN 28.7 pg (27.0-31.0); MEAN CORPUSCULAR HGB CONC 33.2 g/dL (33.0-37.0); MEAN PLATELET VOLUME 8.1 fL (7.2-11.7); MONO # 0.2 K/uL (0.0-0.8); MONO % 8.6 % (0.0-10.0); NEUT # 0.8 K/uL (1.8-7.0); NEUT % 37.2 % (50.0-75.0); NRBC % 0.2 % (0.0-2.0); RBC 3.92 Mil/uL (4.40-5.90); RED CELL DISTRIBUTION WIDTH 16.8 % (11.5-14.5); WHITE BLOOD COUNT 2.1 K/uL (4.8-10.8)
[2017-01-30 08:46] LABS: INR 1.1; PROTHROMBIN TIME 12.3 SECONDS (9.7-12.2)
[2017-01-30 08:54] LABS: ALBUMIN 3.4 g/dL (3.5-5.0)
[2017-01-30 08:57] LABS: ALT/SGPT 26 U/L (21-72); AST/SGOT 32 U/L (17-59); BLOOD UREA NITROGEN 24 mg/dL (9-20); GFR AFRICAN-AMERICAN > 60; GFR NON-AFRICAN AMERICAN > 60
[2017-01-30] MEDS: Tiotropium 18 mcg Cap For Inhalation INH SCH (09:20)
--- NOTE | 2017-01-30 09:53 | CP.PCM.PN ---
<ReneeBret Mitchel - Last Filed: 01/30/17 17:54> Subjective - Date & Time of Evaluation Date of Evaluation: 01/30/17 Time of Evaluation: 07:15 - Subjective Subjective: Patient seen and examined at bedside. He is now on neutropenic precautions. Patient c/o of right leg pain. He stated he had his last BM 2 days ago. Patient denies chest pain, shortness of breath, fever, cough, vomiting, diarrhea. Objective - Vital Signs/Intake and Output Vital Signs (last 24 hours): Temp Pulse Resp BP Pulse Ox 97.8 F 73 20 103/65 96 01/30/17 08:46 01/30/17 08:46 01/30/17 08:46 01/30/17 08:46 01/30/17 08:46 - Medications Medications: Current Medications Acetaminophen (Tylenol 325mg Tab) 650 mg PO Q6 [facility] Last Admin: 01/30/17 05:56 Dose: Not Given Amitriptyline HCl (Elavil) 25 mg PO DAILY [facility] Last Admin: 01/29/17 10:22 Dose: 25 mg Atovaquone (Mepron) 750 mg PO DAILY [facility] Last Admin: 01/29/17 10:22 Dose: 750 mg Dolutegravir Sodium (Tivicay) 50 mg PO DAILY [facility] Last Admin: 01/29/17 10:22 Dose: 50 mg Emtricitabine/Tenofovir (Truvada 200 Mg-300 Mg) 1 tab PO DAILY [facility] Last Admin: 01/29/17 10:22 Dose: 1 tab Enoxaparin Sodium (Lovenox) 110 mg SC Q12 [facility] Last Admin: 01/29/17 22:25 Dose: 110 mg Famotidine (Pepcid) 20 mg PO DAILY [facility] Last Admin: 01/29/17 10:26 Dose: 20 mg Gabapentin (Neurontin) 600 mg PO TID [facility] Last Admin: 01/29/17 17:06 Dose: 600 mg Levetiracetam (Keppra) 750 mg PO DAILY [facility] Last Admin: 01/29/17 10:22 Dose: 750 mg Oxycodone HCl (Oxycodone Immediate Release Tab) 5 mg PO Q6 PRN PRN Reason: Pain, severe (8-10) Last Admin: 01/29/17 19:35 Dose: 5 mg Quetiapine Fumarate (Seroquel) 100 mg PO HS [facility] Last Admin: 01/29/17 22:25 Dose: 100 mg Tiotropium [place] (Spiriva) 18 mcg INH RQ24 [facility] Last Admin: 01/30/17 09:20 Dose: 18 mcg - Labs Labs: 01/30/17 08:00 01/30/17 08:00 PT 12.3 SECONDS (9.7-12.2) H 01/30/17 08:00 INR 1.1 01/30/17 08:00 - Constitutional Appears: Well, Non-toxic, No Acute Distress - Head Exam Head Exam: ATRAUMATIC, NORMAL INSPECTION, NORMOCEPHALIC - Eye Exam Eye Exam: EOMI, Normal appearance, PERRL - ENT Exam ENT Exam: Mucous Membranes Moist, Normal Exam - Neck Exam Neck Exam: Full ROM, Normal Inspection. absent: Lymphadenopathy - Respiratory Exam Respiratory Exam: Clear to Ausculation Bilateral, NORMAL BREATHING PATTERN - Cardiovascular Exam Cardiovascular Exam: REGULAR RHYTHM, RRR, +S1, +S2 - GI/Abdominal Exam GI & Abdominal Exam: Soft, Normal Bowel Sounds. absent: Tenderness - Rectal Exam Rectal Exam: Deferred - Extremities Exam Extremities Exam: Calf Tenderness - Neurological Exam Neurological Exam: Alert, Awake, Normal Gait - Psychiatric Exam Psychiatric exam: Normal Affect, Normal Mood - Skin Skin Exam: Erythema, Warm Additional comments: rt lower extremity is erythmatous Assessment and Plan - Assessment and Plan (Free Text) Assessment: 46M with PMHx of recurrent DVTs, IVC, AIDS, Seizures, and Anxiety presented to the ED complaining of chronic right leg. 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 * Hx of IVC - placed in 2003 * Visit to [facility] on 09/26/16, where US was performed revealing these results : prob thrombophlebitis of R thigh, collaterals from R femoral vein DVT, a newly developed DVT from prior one. * CT angio chest ordered to r/o PE, impression: "Pulmonary arteries as above, with no large or central embolus, but significant limitations beyond the lobar level. No thoracic aortic aneurysm. Right hydronephrosis, incompletely imaged. 5mm perifissural nodule right middle lobe. As per Fleischner Society guidelines for follow-up and management of pulmonary nodules: For patients at low risk ( minimal or absent history of smoking and of other known risk factors), recommend follow-up chest CT at 12 months; if unchanged, no further follow-up. For patient at high risk (history of smoking or of other known risk factors), recommend initial follow-up chest CT at 6-12 months, then at 18-24 months if no interval change" * Stopped Xarelto * Started lovenox 110mcg SC q12 for bridge to coumadin * Started on Coumadin 7.5mg PO daily - follow up daily INR. 01/30: Coumadin increased to 10mg po daily due to INR of 1.1. * Neurontin 600mg PO TID * ECHO ordered, f/u * oxycodone 5mg po q6 prn for pain * Cardiology, Dr Gomez, consulted. AIDS Pt states he has not been compliant with his AIDS medications. Pt reports a CD4 count of 280. Pt states he last saw his HIV doctor last Jun. 01/30: Lymphocytic panel, f/u 01/30: HIV 1&2 Antibody screen: reactive 01/29: wbc 1.7; 01/30: wbc 2.1. * Trivicay 50mg PO daily * Truvada 1 tab PO daily * Mepron 750mg PO daily * ID consult, Dr Atkins, recs appreciated. * neutropenic precautions * Hematology/Oncology consulted, Dr Garcia, for investigation of cancerous etiology of DVTs. * Pulmonology consulted, Dr Espinoza, recs appreciated. Seizures * Restarted home medications: Keppra 750 PO daily Anxiety/ Depression * Restarted home medications: Seroquel 100mg PO QHS and Elavil 25mg PO daily Prophylactic Measures * GI PPX: Pepcid 20mg PO daily * DVT PPX: SCDs contraindicated, on therapeutic lovenox and Warfarin * Regular diet <Naa Car V - Last Filed: 02/01/17 21:51> Objective - Vital Signs/Intake and Output Vital Signs (last 24 hours): Temp Pulse Resp BP Pulse Ox 98.2 F 76 20 114/66 96 02/01/17 15:00 02/01/17 15:00 02/01/17 15:00 02/01/17 15:00 02/01/17 15:00 Intake and Output: 02/01/17 02/02/17 18:59 06:59 Intake Total 500 Balance 500 - Labs Labs: 02/01/17 08:34 02/01/17 08:34 PT 21.9 SECONDS (9.7-12.2) H 02/01/17 08:34 INR 1.9 02/01/17 08:34 Attending/Attestation - Attestation I have personally seen and examined this patient.: Yes I have fully participated in the care of the patient.: Yes I have reviewed all pertinent clinical information, including history, physical exam and plan: Yes Notes (Text): This is late computer entry for 01/30/17. Patient seen, examined, and case discussed with day-time resident. Patient is neutropenic likely secondary to his non-compliance to his HIV medications. Discussed with heme-onc, given neutropenia; recommended for pulmonary eval given his history of pulmonary nodules and current smoking. Discussed with infectious disease, recommended for HIV viral load and lymphocytic panel to determine CD4 count. Patient is currently on bridge from therapuetic Lovenox to Coumadin for history of recurrent DVT and non-compliance on Xarelto.
[2017-01-30] MEDS ORDERED: Bisacodyl 5mg EC Tab PO ONE ×2 (10:43→12:00)
--- NOTE | 2017-01-30 11:46 | CP.PCM.PN ---
Subjective - Date & Time of Evaluation Date of Evaluation: 01/30/17 Time of Evaluation: 10:00 - Subjective Subjective: Patient seen and examined at bedside. Currently resting comfortably in neutropenic precaution room. No acute events overnight as per nursing. Patient complaining of intermittent headaches, RLE pain, and mild to moderate intermittent SOB both at rest and with exertion. Patient does not currently have any other acute complaints on ROS. Objective - Vital Signs/Intake and Output Vital Signs (last 24 hours): Temp Pulse Resp BP Pulse Ox 97.8 F 73 20 103/65 96 01/30/17 08:46 01/30/17 08:46 01/30/17 08:46 01/30/17 08:46 01/30/17 08:46 - Medications Medications: Current Medications Acetaminophen (Tylenol 325mg Tab) 650 mg PO Q6 [facility] Last Admin: 01/30/17 05:56 Dose: Not Given Amitriptyline HCl (Elavil) 25 mg PO DAILY [facility] Last Admin: 01/29/17 10:22 Dose: 25 mg Atovaquone (Mepron) 750 mg PO DAILY [facility] Last Admin: 01/29/17 10:22 Dose: 750 mg Dolutegravir Sodium (Tivicay) 50 mg PO DAILY [facility] Last Admin: 01/29/17 10:22 Dose: 50 mg Emtricitabine/Tenofovir (Truvada 200 Mg-300 Mg) 1 tab PO DAILY [facility] Last Admin: 01/29/17 10:22 Dose: 1 tab Enoxaparin Sodium (Lovenox) 110 mg SC Q12 [facility] Last Admin: 01/29/17 22:25 Dose: 110 mg Famotidine (Pepcid) 20 mg PO DAILY [facility] Last Admin: 01/29/17 10:26 Dose: 20 mg Gabapentin (Neurontin) 600 mg PO TID [facility] Last Admin: 01/29/17 17:06 Dose: 600 mg Levetiracetam (Keppra) 750 mg PO DAILY [facility] Last Admin: 01/29/17 10:22 Dose: 750 mg Oxycodone HCl (Oxycodone Immediate Release Tab) 5 mg PO Q6 PRN PRN Reason: Pain, severe (8-10) Last Admin: 01/29/17 19:35 Dose: 5 mg Quetiapine Fumarate (Seroquel) 100 mg PO HS [facility] Last Admin: 01/29/17 22:25 Dose: 100 mg Tiotropium [place] (Spiriva) 18 mcg INH RQ24 [facility] Last Admin: 01/30/17 09:20 Dose: 18 mcg Warfarin Sodium (Coumadin) 10 mg PO 1800 [facility] Stop: 01/30/17 18:01 - Labs Labs: 01/30/17 08:00 01/30/17 08:00 PT 12.3 SECONDS (9.7-12.2) H 01/30/17 08:00 INR 1.1 01/30/17 08:00 - Constitutional Appears: Unkempt - Head Exam Head Exam: NORMAL INSPECTION, NORMOCEPHALIC - Eye Exam Eye Exam: Normal appearance. absent: Conjunctival injection, Scleral icterus - ENT Exam ENT Exam: Mucous Membranes Moist - Neck Exam Neck Exam: Full ROM, Normal Inspection - Respiratory Exam Respiratory Exam: Clear to Ausculation Bilateral, NORMAL BREATHING PATTERN. absent: Accessory Muscle Use - Cardiovascular Exam Cardiovascular Exam: RRR, +S1, +S2. absent: Bradycardia, Tachycardia - GI/Abdominal Exam GI & Abdominal Exam: Soft, Normal Bowel Sounds. absent: Tenderness - Extremities Exam Additional comments: erythema of rt leg warth of rt leg tender to palpation of right leg - Neurological Exam Neurological Exam: Alert, Awake, Oriented x3 - Psychiatric Exam Psychiatric exam: Normal Affect, Normal Mood Assessment and Plan - Assessment and Plan (Free Text) Assessment: 46 y/o M with hx of recurrent DTVs a/p IVC filter, AIDS, seizures and anxiety p/ w acute RLE pain 2/2 DVT Plan: Recurrent DVT -s/p IVC filter -therapeutic lovenox 110mg sc q12 -coumadin 10mg po tonight 01/30 -Doppler RLE: partial chronic thrombosis of R femoral and popliteal veins. Mild valvular incompetence of R femoral, popliteal, and great saphenous veins -f/u Echo -Continue current management
[2017-01-30] MEDS: Atovaquone 750 mg/5 ml Susp UD PO SCH (11:58)
[2017-01-30] MEDS: Enoxaparin 120 mg Syringe SC SCH ×2 (11:58→22:43)
--- NOTE | 2017-01-30 14:36 | CP.PCM.CON ---
History of Present Illness - History of Present Illness History of Present Illness: This is a 46 yr old male with PMHx of recurrent DVTs, IVC, AIDS, Seizures, and Anxiety presented to the ED complaining of chronic right leg. Patient admits to right leg pain that has worsened over the past 3 days. Patient had chronic reccurrent leg pain due to recurrent DVTs. Patient has from R femoral vein DVT, a newly developed DVT from prior one. A new PO anticoagulation regimen recommended. Patient reports he is not as compliant with his medications as he should be but he feels discouraged to continue taking the Xarelto since he still developed a DVT in September while being on Xarelto. Admitted to right leg pain, especially near medial thigh, pain at rest, pain worse with ambulation. Denied fever, chills, headache, chest pain, SOB, abdominal pain, n/v/d/c, or urinary symptoms. He says that he follows with Dr for aids and medications were changed as he was on xarelto and there was interaction. He is neutropenic here and I am asked to see her PMHx: recurrent DVTs, IVC, AIDS, Seizures, anxiety, depression PSHx: IVC filter, cholecystectotomy Meds: As per SEP All: As per SEP SHx: Admits to smoking 1/2 PPD for the past 10-15 years, social drinking, and occasionally (every 1-2 months cocaine use, last use was last month) FHx: Unremarkable Review of Systems - Constitutional Constitutional: As Per HPI - EENT Eyes: absent: As Per HPI, Blind Spots, Blurred Vision, Change in Vision, Decreased Night Vision, Diplopia, Discharge, Dry Eye, Exophthalmos, Floaters, Irritation, Itchy Eyes, Loss of Peripheral Vision, Pain, Photophobia, Requires Corrective Lenses, Sees Flashes, Spots in Vision, Tunnel Vision, Other Visual Disturbances, Loss of Vision, Other Ears: absent: As Per HPI, Decreased Hearing, Ear Discharge, Ear Pain, Tinnitus, Abnormal Hearing, Disequilibrium, Dizziness, Other Nose/Mouth/Throat: absent: As Per HPI, Epistaxis, Nasal Congestion, Nasal Discharge, Nasal Obstruction, Nasal Trauma, Nose Pain, Post Nasal Drip, Sinus Pain, Sinus Pressure, Bleeding Gums, Change in Voice, Dental Pain, Dry Mouth, Dysphagia, Halitosis, Hoarsness, Lip Swelling, Mouth Lesions, Mouth Pain, Odynophagia, Sore Throat, Throat Swelling, Tongue Swelling, Facial Pain, Neck Pain, Neck Mass, Other - Cardiovascular Cardiovascular: Chest Pain, Rapid Heart Rate. absent: As Per HPI, Acrocyanosis , Chest Pain at Rest, Chest Pain with Activity, Claudication, Diaphoresis, Dyspnea, Dyspnea on Exertion, Edema, Irregular Heart Rhythm, Pain Radiating to Arm/Neck/Jaw, Leg Edema, Leg Ulcers, Lightheadedness, Orthopnea, Palpitations, Paroxysmal Nocturnal Dyspnea, Pedal Edema, Radiating Pain, Slow Heart Rate, Syncope, Other - Respiratory Respiratory: absent: As Per HPI, Cough, Dyspnea, Hemoptysis, Dyspnea on Exertion , Wheezing, Snoring, Stridor, Pain on Inspiration, Chest Congestion, Excessive Mucous Production, Change in Mucous Color, Pain with Coughing, Other - Gastrointestinal Gastrointestinal: absent: As Per HPI, Abdominal Pain, Belching, Bloating, Change in Bowel Habits, Change in Stool Character, Coffee Ground Emesis, Constipation, Cramping, Diarrhea, Dyspepsia, Dysphagia, Early Satiety, Excessive Flatus, Fecal Incontinence, Heartburn, Hematemesis, Hematochezia, Loose Stools, Melena, Nausea, Odynophagia, Temesmus, Vomiting, Other - Genitourinary Genitourinary: absent: As Per HPI, Change in Urinary Stream, Difficulty Urinating, Dysuria, Flank Pain, Hematuria, Pyuria, Nocturia, Urinary Incontinence, Urinary Frequency, Urinary Hesitance, Urinary Urgency, Voiding Freq/Small Amts, Freq UTI, Hx Renal/Bladder Calculi, Hx /Renal Surgery, Bladder Distension, Other - Musculoskeletal Musculoskeletal: As Per HPI Past Patient History - Infectious Disease Hx of Infectious Diseases: None - Tetanus Immunizations Tetanus Immunization: Unknown - Past Medical History & Family History Past Medical History?: Yes - Past Social History Smoking Status: Heavy Smoker > 10 Cigarettes Daily - CARDIAC Hx Cardiac Disorders: No - PULMONARY Hx Asthma: Yes Hx Chronic Obstructive Pulmonary Disease (COPD): Yes Hx Pneumonia: Yes - NEUROLOGICAL Hx Seizures: Yes - HEENT Hx HEENT Problems: No - RENAL Hx Chronic Kidney Disease: No - ENDOCRINE/METABOLIC Hx Endocrine Disorders: No - HEMATOLOGICAL/ONCOLOGICAL Hx AIDS: Yes (2010) Hx Anemia: Yes - INTEGUMENTARY Hx Fernandez: Yes (chronic right lowet extremity) - MUSCULOSKELETAL/RHEUMATOLOGICAL Hx Falls: No - GASTROINTESTINAL Hx Gall Bladder Disease: Yes - GENITOURINARY/GYNECOLOGICAL Hx Genitourinary Disorders: No - PSYCHIATRIC Hx Anxiety: Yes Hx Depression: Yes Hx Substance Use: Yes - SURGICAL HISTORY Hx Cholecystectomy: Yes (december) - ANESTHESIA Hx Anesthesia: Yes Hx Anesthesia Reactions: No Meds Allergies/Adverse Reactions: Allergies Allergy/AdvReac Type Severity Reaction Status Date / Time cefaclor [From Ceclor] Allergy Severe URTICARIA Verified 01/28/17 00:11 piperacillin sodium Allergy Severe Verified 01/28/17 00:11 [From Zosyn] sulfamethoxazole Allergy Severe FEVER Verified 01/28/17 00:11 [From Bactrim] tazobactam sodium Allergy Severe Verified 01/28/17 00:11 [From Zosyn] trimethoprim [From Bactrim] Allergy Severe FEVER Verified 01/28/17 00:11 - Medications Medications: Current Medications Acetaminophen (Tylenol 325mg Tab) [address] [facility] Last Admin: 01/30/17 05:56 Dose: Not Given Amitriptyline HCl (Elavil) [address] [facility] Last Admin: 01/30/17 11:58 Dose: 25 mg Atovaquone (Mepron) [address] [facility] Last Admin: 01/30/17 11:58 Dose: 750 mg Dolutegravir Sodium (Tivicay) [address] [facility] Last Admin: 01/30/17 11:58 Dose: 50 mg Emtricitabine/Tenofovir (Truvada 200 Mg-300 Mg) [address] [facility] Last Admin: 01/29/17 10:22 Dose: 1 tab Enoxaparin Sodium (Lovenox) [address] [facility] Last Admin: 01/30/17 11:58 Dose: 110 mg Famotidine (Pepcid) [address] [facility] Last Admin: 01/30/17 11:58 Dose: 20 mg Gabapentin (Neurontin) [address] [facility] Last Admin: 01/30/17 11:58 Dose: 600 mg Levetiracetam (Keppra) [address] [facility] Last Admin: 01/30/17 12:05 Dose: 750 mg Oxycodone HCl (Oxycodone Immediate Release Tab) 5 mg PO Q6 PRN PRN Reason: Pain, severe (8-10) Last Admin: 01/29/17 19:35 Dose: 5 mg Quetiapine Fumarate (Seroquel) 100 mg PO HS [facility] Last Admin: 01/29/17 22:25 Dose: 100 mg Tiotropium [place] (Spiriva) 18 mcg INH RQ24 [facility] Last Admin: 01/30/17 09:20 Dose: 18 mcg Warfarin Sodium (Coumadin) [address] [facility] Stop: 01/30/17 18:01 Physical Exam - Constitutional Appears: No Acute Distress - Head Exam Head Exam: ATRAUMATIC, NORMOCEPHALIC - Eye Exam Eye Exam: Normal appearance - ENT Exam ENT Exam: Mucous Membranes Moist - Neck Exam Neck exam: Positive for: Normal Inspection - Respiratory Exam Respiratory Exam: Clear to Auscultation Bilateral, NORMAL BREATHING PATTERN - Cardiovascular Exam Cardiovascular Exam: REGULAR RHYTHM - GI/Abdominal Exam GI & Abdominal Exam: Normal Bowel Sounds, Soft - Extremities Exam Additional comments: right leg edema ,left leg unremarkable Results - Vital Signs Recent Vital Signs: Last Vital Signs Temp 97.8 F 01/30/17 08:46 Pulse 73 01/30/17 08:46 Resp 20 01/30/17 08:46 BP 103/65 01/30/17 08:46 Pulse Ox 96 01/30/17 08:46 - Labs Result Diagrams: 01/30/17 08:00 01/30/17 08:00 Labs: Laboratory Results - last 24 hr 01/29/17 01/29/17 01/30/17 07:55 19:54 08:00 WBC 2.1 L RBC 3.92 L Hgb 11.3 L Hct 33.9 L MCV 86.4 MCH 28.7 MCHC 33.2 RDW 16.8 H Plt Count 159 MPV 8.1 Neut % (Auto) 37.2 L Lymph % (Auto) 37.5 Beadle % (Auto) 8.6 Eos % (Auto) 15.6 H Baso % (Auto) 1.1 Neut # 0.8 L Lymph # 0.8 L Beadle # 0.2 Eos # 0.3 Baso # 0.0 Smear Path Review PT INR Sodium Potassium Chloride Carbon Dioxide Anion Gap BUN Creatinine Est GFR ( Amer) Est GFR (Non-Af Amer) Random Glucose Calcium Magnesium Total Bilirubin AST ALT Alkaline Phosphatase Total Protein Albumin Globulin Albumin/Globulin Ratio HIV 1&2 Antibody Screen Reactive H 01/30/17 01/30/17 08:00 08:00 WBC RBC Hgb Hct MCV MCH MCHC RDW Plt Count MPV Neut % (Auto) Lymph % (Auto) Beadle % (Auto) Eos % (Auto) Baso % (Auto) Neut # Lymph # Beadle # Eos # Baso # Smear Path Review PT 12.3 H INR 1.1 Sodium 142 Potassium 3.8 Chloride 107 Carbon Dioxide 28 Anion Gap 10 BUN 24 H Creatinine 1.0 Est GFR ( Amer) > 60 Est GFR (Non-Af Amer) > 60 Random Glucose 93 Calcium 9.0 Magnesium 2.0 Total Bilirubin 0.5 AST 32 ALT 26 Alkaline Phosphatase 83 Total Protein 6.8 Albumin 3.4 L Globulin 3.4 Albumin/Globulin Ratio 1.0 HIV 1&2 Antibody Screen - Imaging and Cardiology CT scan - chest Status: Report reviewed by me Assessment & Plan (1) Neutropenia Status: Acute (2) Neutropenia associated with acquired immune deficiency syndrome (AIDS) Assessment and Plan: patient has low wbc secondary to Aids will follow Status: Acute (3) Deep venous thrombosis of lower extremity Status: Acute (4) AIDS (acquired immune deficiency syndrome) Status: Chronic Priority: Low
[2017-01-30] MEDS: Emtricitabine-Tenofovir 200 mg-300 mg Tab PO SCH (22:44)
[2017-01-31] MEDS: oxyCODONE 5 mg Immediate Release Tab PO PRN ×3 (01:28→16:59)
--- NOTE | 2017-01-31 03:47 | CP.PCM.CON ---
History of Present Illness - History of Present Illness History of Present Illness: 46 year old male with a history of AIDS, recurrent DVT s/p IVC filter admitted with right groin/thigh pain, found to have right chronic femoral thrombosis. The patient experienced similar pain to prior DVTs which concerned him and came to the ER. He denies shortness of breath and chest pain. LE venous duplex scan revealed chronic femoral thombosis. He has been taking Xarelto twice daily at lower dosing due to interaction with AIDS medication. Past medical history: AIDS, recurrent venous clotting Past surgical history: IVC filter placement Family history: Denies hematologic and oncologic problems Social history: 1/2 ppd x 20 years, denies alcohol, snorts/smokes cocain monthly Allergies: Multiple, see list Review of systems: All remaining review of systems including HEENT, cardiovascular, respiratory, gastrointestinal, genitourinary, musculoskeletal, dermatologic, neurologic, and psychiatric are negative unless mentioned in the HPI. Past Patient History - Infectious Disease Hx of Infectious Diseases: None - Tetanus Immunizations Tetanus Immunization: Unknown - Past Medical History & Family History Past Medical History?: Yes - Past Social History Smoking Status: Heavy Smoker > 10 Cigarettes Daily - CARDIAC Hx Cardiac Disorders: No - PULMONARY Hx Asthma: Yes Hx Chronic Obstructive Pulmonary Disease (COPD): Yes Hx Pneumonia: Yes - NEUROLOGICAL Hx Seizures: Yes - HEENT Hx HEENT Problems: No - RENAL Hx Chronic Kidney Disease: No - ENDOCRINE/METABOLIC Hx Endocrine Disorders: No - HEMATOLOGICAL/ONCOLOGICAL Hx AIDS: Yes (2010) Hx Anemia: Yes - INTEGUMENTARY Hx Fernandez: Yes (chronic right lowet extremity) - MUSCULOSKELETAL/RHEUMATOLOGICAL Hx Falls: No - GASTROINTESTINAL Hx Gall Bladder Disease: Yes - GENITOURINARY/GYNECOLOGICAL Hx Genitourinary Disorders: No - PSYCHIATRIC Hx Anxiety: Yes Hx Depression: Yes Hx Substance Use: Yes - SURGICAL HISTORY Hx Cholecystectomy: Yes (december) - ANESTHESIA Hx Anesthesia: Yes Hx Anesthesia Reactions: No Meds Allergies/Adverse Reactions: Allergies Allergy/AdvReac Type Severity Reaction Status Date / Time cefaclor [From Ceclor] Allergy Severe URTICARIA Verified 01/28/17 00:11 piperacillin sodium Allergy Severe Verified 01/28/17 00:11 [From Zosyn] sulfamethoxazole Allergy Severe FEVER Verified 01/28/17 00:11 [From Bactrim] tazobactam sodium Allergy Severe Verified 01/28/17 00:11 [From Zosyn] trimethoprim [From Bactrim] Allergy Severe FEVER Verified 01/28/17 00:11 - Medications Medications: Current Medications Acetaminophen (Tylenol 325mg Tab) 650 mg PO Q6 [facility] Last Admin: 01/30/17 22:43 Dose: Not Given Amitriptyline HCl (Elavil) 25 mg PO DAILY [facility] Last Admin: 01/30/17 11:58 Dose: 25 mg Atovaquone (Mepron) 750 mg PO DAILY [facility] Last Admin: 01/30/17 11:58 Dose: 750 mg Dolutegravir Sodium (Tivicay) 50 mg PO DAILY [facility] Last Admin: 01/30/17 11:58 Dose: 50 mg Emtricitabine/Tenofovir (Truvada 200 Mg-300 Mg) 1 tab PO DAILY [facility] Last Admin: 01/30/17 22:44 Dose: 1 tab Enoxaparin Sodium (Lovenox) 110 mg SC Q12 [facility] Last Admin: 01/30/17 22:43 Dose: 110 mg Famotidine (Pepcid) 20 mg PO DAILY [facility] Last Admin: 01/30/17 11:58 Dose: 20 mg Gabapentin (Neurontin) 600 mg PO TID [facility] Last Admin: 01/30/17 18:08 Dose: 600 mg Levetiracetam (Keppra) 750 mg PO DAILY [facility] Last Admin: 01/30/17 12:05 Dose: 750 mg Oxycodone HCl (Oxycodone Immediate Release Tab) 5 mg PO Q6 PRN PRN Reason: Pain, severe (8-10) Last Admin: 01/31/17 01:28 Dose: 5 mg Quetiapine Fumarate (Seroquel) 100 mg PO HS [facility] Last Admin: 01/30/17 22:43 Dose: 100 mg Tiotropium [place] (Spiriva) 18 mcg INH RQ24 [facility] Last Admin: 01/30/17 09:20 Dose: 18 mcg Physical Exam - Head Exam Head Exam: ATRAUMATIC - Eye Exam Eye Exam: Normal appearance - ENT Exam ENT Exam: Mucous Membranes Dry - Respiratory Exam Respiratory Exam: NORMAL BREATHING PATTERN - Cardiovascular Exam Cardiovascular Exam: +S1, +S2 - GI/Abdominal Exam GI & Abdominal Exam: Normal Bowel Sounds - Extremities Exam Extremities exam: Positive for: pedal edema - Neurological Exam Neurological exam: Oriented x3 - Psychiatric Exam Psychiatric exam: Normal Affect, Normal Mood - Skin Skin Exam: Warm Results - Vital Signs Recent Vital Signs: Last Vital Signs Temp 98.0 F 01/30/17 23:30 Pulse 79 01/30/17 23:30 Resp 20 01/30/17 23:30 BP 109/65 01/30/17 23:30 Pulse Ox 95 01/30/17 23:30 - Labs Result Diagrams: 01/30/17 08:00 01/30/17 08:00 Labs: Laboratory Results - last 24 hr 01/29/17 01/30/17 01/30/17 07:55 08:00 08:00 WBC 2.1 L RBC 3.92 L Hgb 11.3 L Hct 33.9 L MCV 86.4 MCH 28.7 MCHC 33.2 RDW 16.8 H Plt Count 159 MPV 8.1 Neut % (Auto) 37.2 L Lymph % (Auto) 37.5 Stone % (Auto) 8.6 Eos % (Auto) 15.6 H Baso % (Auto) 1.1 Neut # 0.8 L Lymph # 0.8 L [place] # 0.2 Eos # 0.3 Baso # 0.0 Smear Path Review PT 12.3 H INR 1.1 Sodium Potassium Chloride Carbon Dioxide Anion Gap BUN Creatinine Est GFR ( Amer) Est GFR (Non-Af Amer) Random Glucose Calcium Magnesium Total Bilirubin AST ALT Alkaline Phosphatase Total Protein Albumin Globulin Albumin/Globulin Ratio 01/30/17 08:00 WBC RBC Hgb Hct MCV MCH MCHC RDW Plt Count MPV Neut % (Auto) Lymph % (Auto) [place] % (Auto) Eos % (Auto) Baso % (Auto) Neut # Lymph # [place] # Eos # Baso # Smear Path Review PT INR Sodium 142 Potassium 3.8 Chloride 107 Carbon Dioxide 28 Anion Gap 10 BUN 24 H Creatinine 1.0 Est GFR ( Amer) > 60 Est GFR (Non-Af Amer) > 60 Random Glucose 93 Calcium 9.0 Magnesium 2.0 Total Bilirubin 0.5 AST 32 ALT 26 Alkaline Phosphatase 83 Total Protein 6.8 Albumin 3.4 L Globulin 3.4 Albumin/Globulin Ratio 1.0 Assessment & Plan (1) Deep venous thrombosis of lower extremity Assessment and Plan: recurrent venous clotting s/p IVC filter will perform inherited thrombophilia w/u noncompliance with Xarelto and pt reports to med interaction with HAART started on lovenox with coumadin Status: Acute (2) Neutropenia associated with acquired immune deficiency syndrome (AIDS) Assessment and Plan: moderate neutropenia Status: Acute (3) Anemia Assessment and Plan: will check ferritin, retic count, b12, folate, FOBT element of anemia of HIV Status: Acute (4) Lung nodule Assessment and Plan: consider pulmonary evaluation Status: Acute (5) Tobacco abuse Assessment and Plan: smoking cessation discussed at length Status: Acute (6) Coagulopathy Assessment and Plan: secondary to anticoagulation Thank you for this interesting consult. Status: Acute
[2017-01-31] MEDS: Tiotropium 18 mcg Cap For Inhalation INH SCH (07:14)
[2017-01-31 08:14] LABS: BASO % 0.8 % (0.0-2.0); EOS # 0.4 K/uL (0.0-0.7); EOS % 19.6 % (0.0-4.0); HEMOGLOBIN 11.1 g/dL (12.0-18.0); LYMPH # 0.9 K/uL (1.0-4.3); LYMPH % 43.5 % (20.0-40.0); MEAN CELL VOLUME 86.4 fL (80.0-94.0); MEAN CORPUSCULAR HEMOGLOBIN 28.9 pg (27.0-31.0); MEAN CORPUSCULAR HGB CONC 33.4 g/dL (33.0-37.0); MEAN PLATELET VOLUME 8.1 fL (7.2-11.7); MONO # 0.1 K/uL (0.0-0.8); MONO % 6.3 % (0.0-10.0); NEUT # 0.6 K/uL (1.8-7.0); NEUT % 29.8 % (50.0-75.0); NRBC % 0.1 % (0.0-2.0); RBC 3.84 Mil/uL (4.40-5.90); RED CELL DISTRIBUTION WIDTH 17.2 % (11.5-14.5); WHITE BLOOD COUNT 2.1 K/uL (4.8-10.8)
[2017-01-31 08:20] LABS: INR 1.5
[2017-01-31 08:22] LABS: ALBUMIN 3.4 g/dL (3.5-5.0)
[2017-01-31 08:25] LABS: GFR AFRICAN-AMERICAN > 60; GFR NON-AFRICAN AMERICAN > 60
[2017-01-31 08:26] LABS: ALT/SGPT 37 U/L (21-72); AST/SGOT 34 U/L (17-59); BLOOD UREA NITROGEN 26 mg/dL (9-20); CALCIUM 8.8 mg/dl (8.6-10.4); PROTHROMBIN TIME 17.1 SECONDS (9.7-12.2)
[2017-01-31 08:48] VITALS: O2SAT 96
[2017-01-31 09:02] LABS: FERRITIN 92.1 ng/mL
[2017-01-31 09:32] LABS: FOLATE 6.2 ng/mL
[2017-01-31] MEDS: Atovaquone 750 mg/5 ml Susp UD PO SCH (10:40)
[2017-01-31] MEDS: Emtricitabine-Tenofovir 200 mg-300 mg Tab PO SCH (10:40)
[2017-01-31] MEDS: Enoxaparin 120 mg Syringe SC SCH ×2 (10:40→22:01)
--- NOTE | 2017-01-31 11:44 | CP.PCM.PN ---
Subjective - Date & Time of Evaluation Date of Evaluation: 01/31/17 Time of Evaluation: 11:40 - Subjective Subjective: Medicine progress note. Attending: Dr. Gomez Pt seen and examined at bedside. No acute distress. No events overnight. Pt complaining of some right leg pain. No fevers, chills, vomiting, diarrhea. Objective - Vital Signs/Intake and Output Vital Signs (last 24 hours): Temp Pulse Resp BP Pulse Ox 97.4 F L 73 20 111/74 96 01/31/17 08:46 01/31/17 08:46 01/31/17 08:46 01/31/17 08:46 01/31/17 08:46 Intake and Output: 01/31/17 01/31/17 06:59 18:59 Intake Total 500 Balance 500 - Medications Medications: Current Medications Acetaminophen (Tylenol 325mg Tab) 650 mg PO Q6 [facility] Last Admin: 01/31/17 05:56 Dose: Not Given Amitriptyline HCl (Elavil) 25 mg PO DAILY [facility] Last Admin: 01/31/17 10:47 Dose: 25 mg Amlodipine Besylate (Norvasc) 5 mg PO DAILY [facility] Atovaquone (Mepron) 750 mg PO DAILY [facility] Last Admin: 01/31/17 10:40 Dose: 750 mg Dolutegravir Sodium (Tivicay) 50 mg PO DAILY [facility] Last Admin: 01/31/17 10:40 Dose: 50 mg Emtricitabine/Tenofovir (Truvada 200 Mg-300 Mg) 1 tab PO DAILY [facility] Last Admin: 01/31/17 10:40 Dose: 1 tab Famotidine (Pepcid) 20 mg PO DAILY [facility] Last Admin: 01/31/17 10:40 Dose: 20 mg Gabapentin (Neurontin) 600 mg PO TID [facility] Last Admin: 01/31/17 10:40 Dose: 600 mg Levetiracetam (Keppra) 750 mg PO DAILY [facility] Last Admin: 01/31/17 10:40 Dose: 750 mg Oxycodone HCl (Oxycodone Immediate Release Tab) 5 mg PO Q6 PRN PRN Reason: Pain, severe (8-10) Last Admin: 01/31/17 10:40 Dose: 5 mg Quetiapine Fumarate (Seroquel) 100 mg PO HS [facility] Last Admin: 01/30/17 22:43 Dose: 100 mg Simethicone (Mylicon Liq) 40 mg PO QID [facility] Tiotropium [place] (Spiriva) 18 mcg INH RQ24 [facility] Last Admin: 01/31/17 07:14 Dose: 18 mcg Warfarin Sodium (Coumadin) 7.5 mg PO 1800 [facility] Stop: 01/31/17 18:01 - Labs Labs: 01/31/17 08:04 01/31/17 08:04 PT 17.1 SECONDS (9.7-12.2) H 01/31/17 08:04 INR 1.5 01/31/17 08:04 - Constitutional Appears: Non-toxic, No Acute Distress - Head Exam Head Exam: ATRAUMATIC, NORMOCEPHALIC - Eye Exam Eye Exam: EOMI - ENT Exam ENT Exam: Mucous Membranes Moist - Respiratory Exam Respiratory Exam: Wheezes - Cardiovascular Exam Cardiovascular Exam: +S1, +S2 - GI/Abdominal Exam GI & Abdominal Exam: Soft, Normal Bowel Sounds. absent: Tenderness - Extremities Exam Extremities Exam: Tenderness. absent: Normal Inspection Additional comments: Phlebitis right leg - Neurological Exam Neurological Exam: Alert, Awake, Oriented x3 - Psychiatric Exam Psychiatric exam: Flat Affect - Skin Skin Exam: Dry, Intact, Normal Color, Warm Assessment and Plan - Assessment and Plan (Free Text) Assessment: This is a 46 yo male with past medical hx of recurrent DTVs s/p IVC filter, AIDS , seizures and anxiety p/w acute RLE pain 2/2 DVT 1. Recurrent DVT -s/p IVC filter -therapeutic lovenox 110mg sc q12 -warfarin 7.5 mg po tonight, inr 1.5 today -Doppler RLE: partial chronic thrombosis of R femoral and popliteal veins. Mild valvular incompetence of R femoral, popliteal, and great saphenous veins -f/u Echo -Continue current management discussed with Dr. Gomez
[2017-01-31] MEDS ORDERED: Simethicone 40 mg/0.6 ml Liquid (30 ml) PO SCH (14:00)
--- NOTE | 2017-01-31 17:15 | CP.PCM.CON ---
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 Pt's RLE pain is 2/2 to recurrent DVTs for which he has been taking Xarelto since about 2008. Patient initially was started on lovenox and coumadin when he had the IVC filter placed in 2003, however he was later bridged. CT of the chest showed 5 mm lung nodule in the right middle lobe, and patient has long history of smoking PMHx: recurrent DVTs s/p IVC filter, AIDS, Seizures, anxiety, depression PSHx: IVC filter, cholecystectotomy Meds: As per SEP All: As per SEP SHx: 10 pack year hx of tobacco, social drinking, and occasional cocaine use (1- 2x per month, last used one month ago) Review of Systems - Review of Systems All systems: reviewed and no additional remarkable complaints except (Leg pain) Past Patient History - Infectious Disease Hx of Infectious Diseases: None - Tetanus Immunizations Tetanus Immunization: Unknown - Past Medical History & Family History Past Medical History?: Yes - Past Social History Smoking Status: Heavy Smoker > 10 Cigarettes Daily - CARDIAC Hx Cardiac Disorders: No - PULMONARY Hx Asthma: Yes Hx Chronic Obstructive Pulmonary Disease (COPD): Yes Hx Pneumonia: Yes - NEUROLOGICAL Hx Seizures: Yes - HEENT Hx HEENT Problems: No - RENAL Hx Chronic Kidney Disease: No - ENDOCRINE/METABOLIC Hx Endocrine Disorders: No - HEMATOLOGICAL/ONCOLOGICAL Hx AIDS: Yes (2010) Hx Anemia: Yes - INTEGUMENTARY Hx Fernandez: Yes (chronic right lowet extremity) - MUSCULOSKELETAL/RHEUMATOLOGICAL Hx Falls: No - GASTROINTESTINAL Hx Gall Bladder Disease: Yes - GENITOURINARY/GYNECOLOGICAL Hx Genitourinary Disorders: No - PSYCHIATRIC Hx Anxiety: Yes Hx Depression: Yes Hx Substance Use: Yes - SURGICAL HISTORY Hx Cholecystectomy: Yes (december) - ANESTHESIA Hx Anesthesia: Yes Hx Anesthesia Reactions: No Meds Allergies/Adverse Reactions: Allergies Allergy/AdvReac Type Severity Reaction Status Date / Time cefaclor [From Ceclor] Allergy Severe URTICARIA Verified 01/28/17 00:11 piperacillin sodium Allergy Severe Verified 01/28/17 00:11 [From Zosyn] sulfamethoxazole Allergy Severe FEVER Verified 01/28/17 00:11 [From Bactrim] tazobactam sodium Allergy Severe Verified 01/28/17 00:11 [From Zosyn] trimethoprim [From Bactrim] Allergy Severe FEVER Verified 01/28/17 00:11 - Medications Medications: Current Medications Acetaminophen (Tylenol 325mg Tab) 650 mg PO Q6 [facility] Last Admin: 01/31/17 12:05 Dose: Not Given Amitriptyline HCl (Elavil) 25 mg PO DAILY [facility] Last Admin: 01/31/17 10:47 Dose: 25 mg Amlodipine Besylate (Norvasc) 5 mg PO DAILY [facility] Last Admin: 01/31/17 16:38 Dose: 5 mg Atovaquone (Mepron) 750 mg PO DAILY [facility] Last Admin: 01/31/17 10:40 Dose: 750 mg Dolutegravir Sodium (Tivicay) 50 mg PO DAILY [facility] Last Admin: 01/31/17 10:40 Dose: 50 mg Emtricitabine/Tenofovir (Truvada 200 Mg-300 Mg) 1 tab PO DAILY [facility] Last Admin: 01/31/17 10:40 Dose: 1 tab Famotidine (Pepcid) 20 mg PO DAILY [facility] Last Admin: 01/31/17 10:40 Dose: 20 mg Gabapentin (Neurontin) 600 mg PO TID [facility] Last Admin: 01/31/17 16:36 Dose: 600 mg Levetiracetam (Keppra) 750 mg PO DAILY [facility] Last Admin: 01/31/17 10:40 Dose: 750 mg Oxycodone HCl (Oxycodone Immediate Release Tab) 5 mg PO Q6 PRN PRN Reason: Pain, severe (8-10) Last Admin: 01/31/17 16:59 Dose: 5 mg Quetiapine Fumarate (Seroquel) 100 mg PO HS [facility] Last Admin: 01/30/17 22:43 Dose: 100 mg Simethicone (Mylicon Chew Tab) 80 mg PO QID [facility] Tiotropium [place] (Spiriva) 18 mcg INH RQ24 [facility] Last Admin: 01/31/17 07:14 Dose: 18 mcg Warfarin Sodium (Coumadin) 7.5 mg PO 1800 [facility] Stop: 01/31/17 18:01 Physical Exam - Head Exam Head Exam: ATRAUMATIC, NORMOCEPHALIC - Eye Exam Eye Exam: Normal appearance - ENT Exam ENT Exam: Mucous Membranes Moist - Respiratory Exam Respiratory Exam: Clear to Auscultation Bilateral - Cardiovascular Exam Cardiovascular Exam: REGULAR RHYTHM - GI/Abdominal Exam GI & Abdominal Exam: Normal Bowel Sounds, Soft Results - Vital Signs Recent Vital Signs: Last Vital Signs Temp 98.1 F 01/31/17 15:00 Pulse 78 01/31/17 15:00 Resp 20 01/31/17 15:00 BP 115/80 01/31/17 15:00 Pulse Ox 96 01/31/17 15:00 - Labs Result Diagrams: 02/01/17 08:34 02/01/17 08:34 Labs: Laboratory Results - last 24 hr 01/31/17 01/31/17 01/31/17 08:04 08:04 08:04 WBC 2.1 L RBC 3.84 L Hgb 11.1 L Hct 33.2 L MCV 86.4 MCH 28.9 MCHC 33.4 RDW 17.2 H Plt Count 155 MPV 8.1 Neut % (Auto) 29.8 L Lymph % (Auto) 43.5 H [place] % (Auto) 6.3 Eos % (Auto) 19.6 H Baso % (Auto) 0.8 Neut # 0.6 L Lymph # 0.9 L [place] # 0.1 Eos # 0.4 Baso # 0.0 Retic Count PT 17.1 H INR 1.5 Sodium 138 Potassium 4.0 Chloride 101 Carbon Dioxide 28 Anion Gap 12 BUN 26 H Creatinine 0.9 Est GFR ( Amer) > 60 Est GFR (Non-Af Amer) > 60 Random Glucose 94 Calcium 8.8 Ferritin 92.1 Total Bilirubin 0.3 AST 34 ALT 37 Alkaline Phosphatase 87 Total Protein 6.8 Albumin 3.4 L Globulin 3.4 Albumin/Globulin Ratio 1.0 Vitamin B12 278 Folate 6.2 01/31/17 08:04 WBC RBC Hgb Hct MCV MCH MCHC RDW Plt Count MPV Neut % (Auto) Lymph % (Auto) [place] % (Auto) Eos % (Auto) Baso % (Auto) Neut # Lymph # [place] # Eos # Baso # Retic Count 1.5 PT INR Sodium Potassium Chloride Carbon Dioxide Anion Gap BUN Creatinine Est GFR ( Amer) Est GFR (Non-Af Amer) Random Glucose Calcium Ferritin Total Bilirubin AST ALT Alkaline Phosphatase Total Protein Albumin Globulin Albumin/Globulin Ratio Vitamin B12 Folate Assessment & Plan (1) Lung nodule Status: Acute Comment: 46-year-old male with long history of smoking admitted with recurrent DVT and leg pain found to have small 5 mm lung nodule. unable to biopsy or get PET scan because of size of nodule. Follow-up CAT scan of the chest in 3 months (2) Deep venous thrombosis of lower extremity Status: Acute (3) Neutropenia associated with acquired immune deficiency syndrome (AIDS) Status: Acute
[2017-01-31] MEDS: Simethicone 80 mg Chewtab PO SCH ×2 (18:36→21:57)
--- NOTE | 2017-01-31 22:35 | CARD ---
APPROVED REPORT EXAM: Two-dimensional and M-mode echocardiogram with Doppler and color Doppler. Other Information Quality : GoodRhythm : NSR INDICATION COPD Hx of DVTs s/p IVC ; AIDS M-Mode DIMENSIONS RVDd3.05 (2.1-3.2cm)Left Atrium (MM)3.51 (2.5-4.0cm) IVSd0.86 (0.7-1.1cm)Aortic Root3.87 (2.2-3.7cm) LVDd6.01 (4.0-5.6cm)Aortic Cusp Exc.2.69 (1.5-2.0cm) PWd0.86 (0.7-1.1cm)FS (%) 37 % LVDs3.79 (2.0-3.8cm)LVEF (%)66 (>50%) Mitral Valve MV E Gepbfvwx75.4cm/sMV A Jbojdeqn26.9cm/sE/A ratio1.0 TDI E/Lateral E'0.0E/Medial E'0.0 Tricuspid Valve TR Peak [id number]/sTR Peak [id number] LEFT VENTRICLE The Left Ventricle is mildly dilated. There is normal left ventricular wall thickness. Left ventricle systolic function is normal with Ejection Fraction of 65-70%. There is normal LV segmental wall motion. The left ventricular diastolic function is normal. No left ventricle thrombus noted on this study. RIGHT VENTRICLE The right ventricle is normal size. The right ventricular systolic function is normal. ATRIA The left atrium size is normal. The right atrium size is normal. AORTIC VALVE The aortic valve is thickened. The aortic valve is trileaflet. No aortic regurgitation is present. There is no aortic valvular stenosis. There is no aortic valvular vegetation. MITRAL VALVE Mitral annular calcification is mild. There is no evidence of mitral valve prolapse. There is no mitral valve stenosis. Mitral regurgitation is trace to mild. TRICUSPID VALVE The tricuspid valve is normal in structure. There is mild tricuspid regurgitation. There is no tricuspid valve prolapse or vegetation. There is no tricuspid valve stenosis. PULMONIC VALVE The pulmonic valve is not well visualized. There is mild pulmonic valvular regurgitation. There is no pulmonic valvular stenosis. GREAT VESSELS The aortic root is normal in size. The ascending aorta is normal in size. The IVC is normal in size and collapses >50% with inspiration. PERICARDIAL EFFUSION There is no pericardial effusion. There is no pleural effusion. <Conclusion> The Left Ventricle is mildly dilated. Left ventricle systolic function is normal with Ejection Fraction of 65-70%. The left ventricular diastolic function is normal. The right ventricle is normal size. The right ventricular systolic function is normal. The left atrium size is normal. The right atrium size is normal. There is mild tricuspid regurgitation. There is mild pulmonic valvular regurgitation.
--- NOTE | 2017-01-31 22:51 | CP.PCM.PN ---
<ReneeBret Mitchel - Last Filed: 01/31/17 22:47> Subjective - Date & Time of Evaluation Date of Evaluation: 01/31/17 Time of Evaluation: 07:00 - Subjective Subjective: Patient seen and examined at bedside. He is on neutropenic precautions. Patient c/o of right leg pain. He stated he had a BM 1 days ago. Patient denies chest pain, shortness of breath, fever, cough, vomiting, diarrhea. Objective - Vital Signs/Intake and Output Vital Signs (last 24 hours): Temp Pulse Resp BP Pulse Ox 98.1 F 78 20 115/80 96 01/31/17 15:00 01/31/17 15:00 01/31/17 15:00 01/31/17 15:00 01/31/17 15:00 Intake and Output: 01/31/17 02/01/17 18:59 06:59 Intake Total 800 Output Total 600 Balance 200 - Medications Medications: Current Medications Acetaminophen (Tylenol 325mg Tab) 650 mg PO Q6 [facility] Last Admin: 01/31/17 18:35 Dose: Not Given Amitriptyline HCl (Elavil) 25 mg PO DAILY [facility] Last Admin: 01/31/17 10:47 Dose: 25 mg Amlodipine Besylate (Norvasc) 5 mg PO DAILY [facility] Last Admin: 01/31/17 16:38 Dose: 5 mg Atovaquone (Mepron) 750 mg PO DAILY [facility] Last Admin: 01/31/17 10:40 Dose: 750 mg Dolutegravir Sodium (Tivicay) 50 mg PO DAILY [facility] Last Admin: 01/31/17 10:40 Dose: 50 mg Emtricitabine/Tenofovir (Truvada 200 Mg-300 Mg) 1 tab PO DAILY [facility] Last Admin: 01/31/17 10:40 Dose: 1 tab Enoxaparin Sodium (Lovenox) 110 mg SC Q12 [facility] Last Admin: 01/31/17 22:01 Dose: 110 mg Famotidine (Pepcid) 20 mg PO DAILY [facility] Last Admin: 01/31/17 10:40 Dose: 20 mg Gabapentin (Neurontin) 600 mg PO TID [facility] Last Admin: 01/31/17 18:34 Dose: 600 mg Levetiracetam (Keppra) 750 mg PO DAILY [facility] Last Admin: 01/31/17 10:40 Dose: 750 mg Oxycodone HCl (Oxycodone Immediate Release Tab) 5 mg PO Q6 PRN PRN Reason: Pain, severe (8-10) Last Admin: 01/31/17 16:59 Dose: 5 mg Quetiapine Fumarate (Seroquel) 100 mg PO HS [facility] Last Admin: 01/31/17 22:00 Dose: 100 mg Simethicone (Mylicon Chew Tab) 80 mg PO QID [facility] Last Admin: 01/31/17 21:57 Dose: 80 mg Tiotropium [place] (Spiriva) 18 mcg INH RQ24 [facility] Last Admin: 01/31/17 07:14 Dose: 18 mcg - Labs Labs: 01/31/17 08:04 01/31/17 08:04 PT 17.1 SECONDS (9.7-12.2) H 01/31/17 08:04 INR 1.5 01/31/17 08:04 - Constitutional Appears: Well, Non-toxic, No Acute Distress - Head Exam Head Exam: ATRAUMATIC, NORMAL INSPECTION, NORMOCEPHALIC - Eye Exam Eye Exam: EOMI, Normal appearance, PERRL - ENT Exam ENT Exam: Mucous Membranes Moist, Normal Exam - Neck Exam Neck Exam: Full ROM, Normal Inspection. absent: Lymphadenopathy - Respiratory Exam Respiratory Exam: Clear to Ausculation Bilateral, NORMAL BREATHING PATTERN - Cardiovascular Exam Cardiovascular Exam: REGULAR RHYTHM, +S1, +S2. absent: Murmur - GI/Abdominal Exam GI & Abdominal Exam: Soft, Normal Bowel Sounds. absent: Tenderness - Rectal Exam Rectal Exam: Deferred - Extremities Exam Extremities Exam: Calf Tenderness - Neurological Exam Neurological Exam: Alert, Awake, Normal Gait, Oriented x3 - Psychiatric Exam Psychiatric exam: Normal Affect, Normal Mood - Skin Skin Exam: Normal Color, Warm Assessment and Plan - Assessment and Plan (Free Text) Assessment: 46M with PMHx of recurrent DVTs, IVC, AIDS, Seizures, and Anxiety presented to the ED complaining of chronic right leg. 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 * Hx of IVC - placed in 2003 * Visit to [facility] on 09/26/16, where US was performed revealing these results : prob thrombophlebitis of R thigh, collaterals from R femoral vein DVT, a newly developed DVT from prior one. * CT angio chest ordered to r/o PE, impression: "Pulmonary arteries as above, with no large or central embolus, but significant limitations beyond the lobar level. No thoracic aortic aneurysm. Right hydronephrosis, incompletely imaged. 5mm perifissural nodule right middle lobe. As per Fleischner Society guidelines for follow-up and management of pulmonary nodules: For patients at low risk ( minimal or absent history of smoking and of other known risk factors), recommend follow-up chest CT at 12 months; if unchanged, no further follow-up. For patient at high risk (history of smoking or of other known risk factors), recommend initial follow-up chest CT at 6-12 months, then at 18-24 months if no interval change" * Stopped Xarelto * Started lovenox 110mcg SC q12 for bridge to coumadin * Started on Coumadin 7.5mg PO daily - follow up daily INR. 01/30: Coumadin increased to 10mg po daily due to INR of 1.1. 01/31: coumadin 7.5mg * Neurontin 600mg PO TID * ECHO ordered, f/u * oxycodone 5mg po q6 prn for pain * Cardiology, Dr Gomez, consulted. AIDS Pt states he has not been compliant with his AIDS medications. Pt reports a CD4 count of 280. Pt states he last saw his HIV doctor last Jun. 01/30: Lymphocytic panel, f/u 01/30: HIV 1&2 Antibody screen: reactive 01/29: wbc 1.7; 01/30: wbc 2.1. * Trivicay 50mg PO daily * Truvada 1 tab PO daily * Mepron 750mg PO daily * ID consult, Dr Atkins, recs appreciated. * neutropenic precautions * Hematology/Oncology consulted, Dr Garcia, for investigation of cancerous etiology of DVTs. * Pulmonology consulted, Dr Espinoza, recs appreciated. Seizures * Restarted home medications: Keppra 750 PO daily Anxiety/ Depression * Restarted home medications: Seroquel 100mg PO QHS and Elavil 25mg PO daily Prophylactic Measures * GI PPX: Pepcid 20mg PO daily * DVT PPX: SCDs contraindicated, on therapeutic lovenox and Warfarin * Regular diet * simethacone 40mg qd for constipation <Naa Car V - Last Filed: 02/01/17 21:54> Objective - Vital Signs/Intake and Output Vital Signs (last 24 hours): Temp Pulse Resp BP Pulse Ox 98.2 F 76 20 114/66 96 02/01/17 15:00 02/01/17 15:00 02/01/17 15:00 02/01/17 15:00 02/01/17 15:00 Intake and Output: 02/01/17 02/02/17 18:59 06:59 Intake Total 500 Balance 500 - Labs Labs: 02/01/17 08:34 02/01/17 08:34 PT 21.9 SECONDS (9.7-12.2) H 02/01/17 08:34 INR 1.9 02/01/17 08:34 Attending/Attestation - Attestation I have personally seen and examined this patient.: Yes I have fully participated in the care of the patient.: Yes I have reviewed all pertinent clinical information, including history, physical exam and plan: Yes Notes (Text): This is late computer entry for 01/31/17. Patient seen, examined, and case discussed with day-time quality intern. Patient started on Norvasc 5mg PO daily for blood pressure control. Patient currently being bridged from therapuetic Lovenox to Coumadin for therapy for DVT. Patient is currently on HIV medications, awaiting lymphocytic count. Patient recommended for follow-up CT chest in 3 months to monitor pulmonary nodule.
--- NOTE | 2017-02-01 03:59 | CP.PCM.PN ---
Subjective - Date & Time of Evaluation Date of Evaluation: 01/31/17 Time of Evaluation: 15:00 - Subjective Subjective: Leg pain improving, feeling better Objective - Vital Signs/Intake and Output Vital Signs (last 24 hours): Temp Pulse Resp BP Pulse Ox 97.9 F 80 20 100/62 96 01/31/17 23:55 01/31/17 23:55 01/31/17 23:55 01/31/17 23:55 01/31/17 23:55 Intake and Output: 01/31/17 02/01/17 18:59 06:59 Intake Total 800 Output Total 600 Balance 200 - Medications Medications: Current Medications Acetaminophen (Tylenol 325mg Tab) 650 mg PO Q6 [facility] Last Admin: 01/31/17 18:35 Dose: Not Given Amitriptyline HCl (Elavil) 25 mg PO DAILY [facility] Last Admin: 01/31/17 10:47 Dose: 25 mg Amlodipine Besylate (Norvasc) 5 mg PO DAILY [facility] Last Admin: 01/31/17 16:38 Dose: 5 mg Atovaquone (Mepron) 750 mg PO DAILY [facility] Last Admin: 01/31/17 10:40 Dose: 750 mg Dolutegravir Sodium (Tivicay) 50 mg PO DAILY [facility] Last Admin: 01/31/17 10:40 Dose: 50 mg Emtricitabine/Tenofovir (Truvada 200 Mg-300 Mg) 1 tab PO DAILY [facility] Last Admin: 01/31/17 10:40 Dose: 1 tab Enoxaparin Sodium (Lovenox) 110 mg SC Q12 [facility] Last Admin: 01/31/17 22:01 Dose: 110 mg Famotidine (Pepcid) 20 mg PO DAILY [facility] Last Admin: 01/31/17 10:40 Dose: 20 mg Gabapentin (Neurontin) 600 mg PO TID [facility] Last Admin: 01/31/17 18:34 Dose: 600 mg Levetiracetam (Keppra) 750 mg PO DAILY [facility] Last Admin: 01/31/17 10:40 Dose: 750 mg Oxycodone HCl (Oxycodone Immediate Release Tab) 5 mg PO Q6 PRN PRN Reason: Pain, severe (8-10) Last Admin: 01/31/17 16:59 Dose: 5 mg Quetiapine Fumarate (Seroquel) 100 mg PO HS [facility] Last Admin: 01/31/17 22:00 Dose: 100 mg Simethicone (Mylicon Chew Tab) 80 mg PO QID [facility] Last Admin: 01/31/17 21:57 Dose: 80 mg Tiotropium [place] (Spiriva) 18 mcg INH RQ24 [facility] Last Admin: 01/31/17 07:14 Dose: 18 mcg - Labs Labs: 01/31/17 08:04 01/31/17 08:04 PT 17.1 SECONDS (9.7-12.2) H 01/31/17 08:04 INR 1.5 01/31/17 08:04 - Head Exam Head Exam: ATRAUMATIC - Eye Exam Eye Exam: Normal appearance - ENT Exam ENT Exam: Mucous Membranes Dry - Respiratory Exam Respiratory Exam: NORMAL BREATHING PATTERN - Cardiovascular Exam Cardiovascular Exam: +S1, +S2 - GI/Abdominal Exam GI & Abdominal Exam: Normal Bowel Sounds - Extremities Exam Extremities Exam: Pedal Edema - Neurological Exam Neurological Exam: Oriented x3 - Psychiatric Exam Psychiatric exam: Normal Affect, Normal Mood - Skin Skin Exam: Warm Assessment and Plan (1) Deep venous thrombosis of lower extremity Assessment & Plan: recurrent venous clotting on lovenox, coumadin goal INR 2-3 Status: Acute (2) Neutropenia associated with acquired immune deficiency syndrome (AIDS) Assessment & Plan: moderate neutropenia suspect secondary to HIV Status: Acute (3) Anemia Assessment & Plan: anemia of HIV Status: Acute (4) Lung nodule Assessment & Plan: pulm eval Status: Acute (5) Tobacco abuse Assessment & Plan: smoking cessation Status: Acute (6) Coagulopathy Assessment & Plan: seconadry to anticoagulation Status: Acute
[2017-02-01 08:41] LABS: BASO % 1.4 % (0.0-2.0); EOS # 0.5 K/uL (0.0-0.7); EOS % 17.5 % (0.0-4.0); HEMOGLOBIN 11.5 g/dL (12.0-18.0); LYMPH # 0.9 K/uL (1.0-4.3); LYMPH % 33.1 % (20.0-40.0); MEAN CELL VOLUME 86.7 fL (80.0-94.0); MEAN CORPUSCULAR HEMOGLOBIN 28.1 pg (27.0-31.0); MEAN CORPUSCULAR HGB CONC 32.4 g/dL (33.0-37.0); MEAN PLATELET VOLUME 8.1 fL (7.2-11.7); MONO # 0.2 K/uL (0.0-0.8); MONO % 7.5 % (0.0-10.0); NEUT # 1.2 K/uL (1.8-7.0); NEUT % 40.5 % (50.0-75.0); NRBC % 0.2 % (0.0-2.0); RBC 4.11 Mil/uL (4.40-5.90); WHITE BLOOD COUNT 2.9 K/uL (4.8-10.8)
[2017-02-01 08:48] LABS: INR 1.9; PROTHROMBIN TIME 21.9 SECONDS (9.7-12.2)
[2017-02-01 08:58] LABS: % CD4 (T HELPER CELL) 5 Percent (30-61); % CD8 (SUPPRESSOR T CELL) 64 Percent (12-42); ABSOLUTE CD3 CELLS 400 Cells/mcL (840-3060); ABSOLUTE CD4 CELLS 30 Cells/mcL (490-1740); ABSOLUTE CD8 CELLS 362 Cells/mcL (180-1170); ABSOLUTE LYMPHOCYTES 564 Cells/mcL (850-3900); HELPER/SUPPRESSOR RATIO 0.08 Ratio (0.86-5.00)
[2017-02-01 09:08] LABS: ALBUMIN 3.5 g/dL (3.5-5.0)
[2017-02-01 09:10] LABS: GFR AFRICAN-AMERICAN > 60; GFR NON-AFRICAN AMERICAN > 60
[2017-02-01 09:11] LABS: ALT/SGPT 44 U/L (21-72); AST/SGOT 43 U/L (17-59); BLOOD UREA NITROGEN 26 mg/dL (9-20)
[2017-02-01] MEDS: Enoxaparin 120 mg Syringe SC SCH (10:01)
[2017-02-01] MEDS: Simethicone 80 mg Chewtab PO SCH ×2 (10:02→14:21)
[2017-02-01] MEDS: Emtricitabine-Tenofovir 200 mg-300 mg Tab PO SCH (10:02)
[2017-02-01] MEDS: Atovaquone 750 mg/5 ml Susp UD PO SCH (10:02)
[2017-02-01] MEDS: Tiotropium 18 mcg Cap For Inhalation INH SCH (11:08)
[2017-02-01] MEDS: oxyCODONE 5 mg Immediate Release Tab PO PRN (12:24)
--- NOTE | 2017-02-01 14:07 | CP.PCM.PN ---
Subjective - Date & Time of Evaluation Date of Evaluation: 02/01/17 Time of Evaluation: 14:04 - Subjective Subjective: PGY2 Progress note cardiology for Dr. Gomez Pt seen and examined at bedside. He appears lethargic today and admits to feeling "run down". He continues to complain of RLE pain and localizes this to the upper thigh/groin area. He admits to feeling chills throughout the night and he also feels subjectively "feverish". Pt is being treated under neutropenic fever precautions. Objective - Vital Signs/Intake and Output Vital Signs (last 24 hours): Temp Pulse Resp BP Pulse Ox 97.8 F 79 20 150/86 96 02/01/17 07:11 02/01/17 12:27 02/01/17 07:11 02/01/17 12:27 02/01/17 07:11 Intake and Output: 02/01/17 02/01/17 06:59 18:59 Intake Total 800 Output Total 600 Balance 200 - Medications Medications: Current Medications Acetaminophen (Tylenol 325mg Tab) 650 mg PO Q6 [facility] Last Admin: 02/01/17 12:23 Dose: 650 mg Amitriptyline HCl (Elavil) 25 mg PO DAILY [facility] Last Admin: 02/01/17 10:02 Dose: 25 mg Amlodipine Besylate (Norvasc) 5 mg PO DAILY [facility] Last Admin: 02/01/17 10:02 Dose: 5 mg Atovaquone (Mepron) 750 mg PO DAILY [facility] Last Admin: 02/01/17 10:02 Dose: 750 mg Dolutegravir Sodium (Tivicay) 50 mg PO DAILY [facility] Last Admin: 02/01/17 10:02 Dose: 50 mg Emtricitabine/Tenofovir (Truvada 200 Mg-300 Mg) 1 tab PO DAILY [facility] Last Admin: 02/01/17 10:02 Dose: 1 tab Enoxaparin Sodium (Lovenox) 110 mg SC Q12 [facility] Last Admin: 02/01/17 10:01 Dose: 110 mg Famotidine (Pepcid) 20 mg PO DAILY [facility] Last Admin: 02/01/17 10:02 Dose: 20 mg Gabapentin (Neurontin) 600 mg PO TID [facility] Last Admin: 02/01/17 10:02 Dose: 600 mg Levetiracetam (Keppra) 750 mg PO DAILY [facility] Last Admin: 02/01/17 10:02 Dose: 750 mg Oxycodone HCl (Oxycodone Immediate Release Tab) 5 mg PO Q6 PRN PRN Reason: Pain, severe (8-10) Last Admin: 02/01/17 12:24 Dose: 5 mg Quetiapine Fumarate (Seroquel) 100 mg PO HS [facility] Last Admin: 01/31/17 22:00 Dose: 100 mg Simethicone (Mylicon Chew Tab) 80 mg PO QID [facility] Last Admin: 02/01/17 10:02 Dose: 80 mg Tiotropium [place] (Spiriva) 18 mcg INH RQ24 [facility] Last Admin: 02/01/17 11:08 Dose: 18 mcg - Labs Labs: 02/01/17 08:34 02/01/17 08:34 PT 21.9 SECONDS (9.7-12.2) H 02/01/17 08:34 INR 1.9 02/01/17 08:34 - Constitutional Appears: No Acute Distress, Other (pt is lethergic and sluggish) - Head Exam Head Exam: ATRAUMATIC - Eye Exam Eye Exam: EOMI - ENT Exam ENT Exam: Mucous Membranes Moist - Respiratory Exam Respiratory Exam: Clear to Ausculation Bilateral - Cardiovascular Exam Cardiovascular Exam: REGULAR RHYTHM - GI/Abdominal Exam GI & Abdominal Exam: Soft. absent: Distended, Tenderness - Extremities Exam Extremities Exam: Calf Tenderness, Tenderness Additional comments: Pt is exquisitely TTP in the RLE. LLE mildly TTP. Diffuse hyperpigmentation and mild skin breakdown below the knee on the RLE. - Neurological Exam Neurological Exam: Alert, Oriented x3 Assessment and Plan - Assessment and Plan (Free Text) Assessment: 46 y/o M w/ pmhx of recurrent DTVs s/p IVC filter, AIDS, seizures and anxiety p/ w acute worsening RLE pain 2/2 DVT confirmed by dopplers done at [facility] Plan: Hx of recurrent DVT -s/p IVC filter- placed in 2003 -continue on therapeutic dosing lovenox 110mg sc q12 -warfarin 7.5 mg po tonight, inr 1.5 today -Doppler results: RLE: partial chronic thrombosis of R femoral and popliteal veins. Mild valvular incompetence of R femoral, popliteal, and great saphenous veins. LLE: No evidence of DVT's. Mild valvular incompetence of great saphenous vein. -Echo: mild dilation of LV w/ EF of 65-70% -Continue current management Case discussed with Dr. Gomez
[2017-02-01 16:58] VITALS: BP 114/66; PULSE 76; TEMP 98.2
--- NOTE | 2017-02-01 18:37 | CP.PCM.DIS ---
<Bret Duran - Last Filed: 02/01/17 18:18> Provider - Provider Date of Admission: 01/28/17 05:27 Attending physician: Gordo Marks MD Primary care physician: n/a Consults: Dr Gomez - Cardiology Dr Garcia - Heme/Onc Dr Atkins - ID Dr Espinoza - Pulmonolgy Time Spent in preparation of Discharge (in minutes): 45 Hospital Course - Lab Results Lab Results: Most Recent Lab Values WBC 2.9 K/uL (4.8-10.8) L 02/01/17 08:34 RBC 4.11 Mil/uL (4.40-5.90) L 02/01/17 08:34 Hgb 11.5 g/dL (12.0-18.0) L 02/01/17 08:34 Hct 35.6 % (35.0-51.0) 02/01/17 08:34 MCV 86.7 fL (80.0-94.0) 02/01/17 08:34 MCH 28.1 pg (27.0-31.0) 02/01/17 08:34 MCHC 32.4 g/dL (33.0-37.0) L 02/01/17 08:34 RDW 17.0 % (11.5-14.5) H 02/01/17 08:34 Plt Count 165 K/uL (130-400) 02/01/17 08:34 MPV 8.1 fL (7.2-11.7) 02/01/17 08:34 Neut % (Auto) 40.5 % (50.0-75.0) L 02/01/17 08:34 Lymph % (Auto) 33.1 % (20.0-40.0) 02/01/17 08:34 [facility] % (Auto) 7.5 % (0.0-10.0) 02/01/17 08:34 Eos % (Auto) 17.5 % (0.0-4.0) H 02/01/17 08:34 Baso % (Auto) 1.4 % (0.0-2.0) 02/01/17 08:34 Neut # 1.2 K/uL (1.8-7.0) L 02/01/17 08:34 Lymph # 0.9 K/uL (1.0-4.3) L 02/01/17 08:34 [facility] # 0.2 K/uL (0.0-0.8) 02/01/17 08:34 Eos # 0.5 K/uL (0.0-0.7) 02/01/17 08:34 Baso # 0.0 K/uL (0.0-0.2) 02/01/17 08:34 Differential Comment 01/29/17 07:55 Smear Path Review 01/29/17 07:55 Retic Count 1.5 % (0.5-1.5) 01/31/17 08:04 PT 21.9 SECONDS (9.7-12.2) H 02/01/17 08:34 INR 1.9 02/01/17 08:34 D-Dimer, Quantitative 375 ng/mlDDU (0-243) H 01/28/17 03:18 Sodium 139 mmol/L (132-148) 02/01/17 08:34 Potassium 4.1 mmol/L (3.6-5.2) 02/01/17 08:34 Chloride 106 mmol/L (98-107) 02/01/17 08:34 Carbon Dioxide 27 mmol/L (22-30) 02/01/17 08:34 Anion Gap 11 (10-20) 02/01/17 08:34 BUN 26 mg/dL (9-20) H 02/01/17 08:34 Creatinine 0.9 MG/DL (0.8-1.5) 02/01/17 08:34 Est GFR ( Amer) > 60 02/01/17 08:34 Est GFR (Non-Af Amer) > 60 02/01/17 08:34 Random Glucose 90 mg/dL (75-110) 02/01/17 08:34 Calcium 9.0 mg/dl (8.6-10.4) 02/01/17 08:34 Magnesium 2.0 mg/dL (1.6-2.3) 01/30/17 08:00 Ferritin 92.1 ng/mL 01/31/17 08:04 Total Bilirubin 0.5 mg/dL (0.2-1.3) 02/01/17 08:34 AST 43 U/L (17-59) 02/01/17 08:34 ALT 44 U/L (21-72) 02/01/17 08:34 Alkaline Phosphatase 85 U/L (38-126) 02/01/17 08:34 Troponin I < 0.0120 ng/mL (0.00-0.120) 01/28/17 03:18 NT-Pro-B Natriuret Pep 153 pg/mL (0-450) 01/28/17 03:18 Total Protein 6.9 g/dL (6.3-8.3) 02/01/17 08:34 Albumin 3.5 g/dL (3.5-5.0) 02/01/17 08:34 Globulin 3.4 gm/dL (2.2-3.9) 02/01/17 08:34 Albumin/Globulin Ratio 1.0 (1.0-2.1) 02/01/17 08:34 Vitamin B12 278 pg/mL (239-931) 01/31/17 08:04 Folate 6.2 ng/mL 01/31/17 08:04 Absolute Lymphs (Flow) 564 Cells/mcL (850-3900) L 01/29/17 19:54 % CD3 Cells 71 Percent (57-85) 01/29/17 19:54 Absolute CD3 Count 400 Cells/mcL (840-3060) L 01/29/17 19:54 % CD4 Cells 5 Percent (30-61) L 01/29/17 19:54 Absolute CD4 Count 30 Cells/mcL (490-1740) L 01/29/17 19:54 T-Help/Suppress Ratio 0.08 Ratio (0.86-5.00) L 01/29/17 19:54 % CD8 Cells 64 Percent (12-42) H 01/29/17 19:54 Absolute CD8 Count 362 Cells/mcL (180-1170) 01/29/17 19:54 T-Lymph Analys Comment See note 01/29/17 19:54 HIV-1 RNA copies/mL 293613 copies/mL (<20) H 01/29/17 19:54 HIV-1 RNA logcopies/mL 5.39 (<1.30) H 01/29/17 19:54 HIV 1&2 Antibody Screen Reactive (NEGATIVE) H 01/29/17 19:54 - Hospital Course Hospital Course: CC: right leg pain HPI: 46M with PMHx of recurrent DVTs, IVC, AIDS, Seizures, and Anxiety presented to the ED complaining of chronic right leg. Patient admits to right leg pain that has worsened over the past 3 days. Patient had chronic reccurrent leg pain due to recurrent DVTs. Patient initially was started on lovenox and coumadin when he had the IVC filter placed in 2003. He was later switched to Xarelto (Elliquis was not an option since it was not covered by insurance). Patient reports he was seen in [facility], where US was performed revealing these results: prob thrombophlebitis of R thigh, collaterals from R femoral vein DVT, a newly developed DVT from prior one. A new PO anticoagulation regimen recommended. Patient reports he is not as compliant with his medications as he should be but he feels discouraged to continue taking the Xarelto since he still developed a DVT in September while being on Xarelto. Admitted to right leg pain, TTP, especiall near medial thigh, pain at rest, pain worse with ambulation. Denied fever, chills, headache, chest pain, SOB, abdominal pain, n/v/d/c, or urinary symptoms. PMHx: recurrent DVTs, IVC, AIDS, Seizures, anxiety, depression PSHx: IVC filter, cholecystectotomy Meds: As per SEP All: As per SEP SHx: Admits to smoking 1/2 PPD for the past 10-15 years, social drinking, and occasionally (every 1-2 months cocaine use, last use was last month) FHx: Unremarkable Hospital Course: Pt was worked up for his right leg pain. A venous doppler was ordered which showed right leg partial chronic thrombosis of the right femoral and popliteal veins. A CT angio of the chest was done to rule out PE which did not show embolus however a 5mm perfissural nodule was seen in the right middle lobe. He was started on lovenox 100mcg sc q12 for bridge to coumadin. He took 7.5mg coumadin during his stay and was discharged on 5mg coumadin. An echo was also ordered which showed EF 65%, LV mildly dilated, mild tricuspid regurgitation, mild pulmonic valve regurgitation. Pt has HIV and was put on his HIV regimen during his stay. This included: Trivicay 50mg PO daily, Truvada 1 tab PO daily, Mepron 750mg PO daily. A lymphocytic panel was ordered which showed a CD4 count of 30. His HIV team at [facility] was contacted and a message was left for them regarding his low CD4 count. He was told to follow up with his HIV specialists. Pt has a history of seizures and keppra 750 po daily was given. Pt has a history of Anxiety/Depression and Seroquel 100mg po qhs was given daily. Discharge Exam - Head Exam Head Exam: ATRAUMATIC - Eye Exam Eye Exam: EOMI, Normal appearance, PERRL Pupil Exam: NORMAL ACCOMODATION, PERRL - ENT Exam ENT Exam: Mucous Membranes Moist - Respiratory Exam Respiratory Exam: NORMAL BREATHING PATTERN. absent: Wheezes - Cardiovascular Exam Cardiovascular Exam: REGULAR RHYTHM, RRR, +S1, +S2 - GI/Abdominal Exam GI & Abdominal Exam: Normal Bowel Sounds, Soft - Rectal Exam Rectal Exam: Deferred - Extremities Exam Extremities exam: calf tenderness, tenderness Additional comments: chronic erythema of right lower leg - Neurological Exam Neurological exam: Alert, Oriented x3, Reflexes Normal - Psychiatric Exam Psychiatric exam: Normal Affect, Normal Mood - Skin Skin Exam: Dry, Intact, Normal Color, Warm Discharge Plan - Discharge Medications Prescriptions: Albuterol HFA [Ventolin HFA 90 mcg/actuation (8 g)] 1 puff IH PRN PRN #1 inhaler PRN Reason: Shortness Of Breath amLODIPine [Norvasc] 5 mg PO DAILY 30 Days Atovaquone [Mepron] 750 mg PO DAILY 30 Days Clotrimazole 1% Cream [Lotrimin 1% CREAM] 1 applic TOP PRN PRN #1 tube PRN Reason: Itching / Pruritus Dolutegravir Sodium [Tivicay] 50 mg PO DAILY 30 Days Emtricitabine/Tenofovir (Tdf) [Truvada 200 mg-300 mg Tablet] 1 tab PO DAILY 30 Days Gabapentin [Neurontin] 600 mg PO TID 30 Days Levetiracetam [Roweepra] 500 mg PO DAILY 30 Days QUEtiapine [Seroquel] 100 mg PO HS 30 Days Warfarin [Coumadin] 5 mg PO 1800 #14 tab - Follow Up Plan Condition: GOOD Disposition: HOME/ ROUTINE Instructions: Pulmonary Embolism (DC), Pulmonary Embolism (GEN), Deep Venous Thrombosis (DC), Deep Venous Thrombosis (GEN) Additional Instructions: Patient is medically stable for discharge. Patient is to the the following newly prescribed medications as instructed: Clotrimazole 1% cream 1 application topical prn for inguinal area itchiness warfarin [coumadin] 5mg po hs quetiapine [seroquiel] 100mg po hs levetiracetem [roweepra] 500mg po daily gabapentin 600mg po tid emtricitabine/tinofovir [truvada] 200mg-200mg 1 tab po daily dolutegravir sodium [tivicay] 50mg po dailyatovaquone [mepron] 750 mg po daily Patient should follow up in our [facility] this SaturdayFebruary 04 and get his INR checked. Patient is to be made aware that a 5mm pulmonary nodule was found on chest CT. To track the progression of this nodule the patient should follow up with a repeat CT scan in 3 months. Patient should follow up with his HIV specialist Referrals: [facility] [Provider Group] (Follow up in 3 days for INR check [facility]) Tonny Espinoza MD [Staff Provider] - Devyn Gomez MD [Staff Provider] - Antonino Garcia MD [Staff Provider] - Quinn Atkins MD [Staff Provider] - <Naa Car V - Last Filed: 02/01/17 22:07> Provider - Provider Date of Admission: 01/28/17 05:27 Attending physician: Gordo Marks MD Hospital Course - Lab Results Lab Results: Most Recent Lab Values WBC 2.9 K/uL (4.8-10.8) L 02/01/17 08:34 RBC 4.11 Mil/uL (4.40-5.90) L 02/01/17 08:34 Hgb 11.5 g/dL (12.0-18.0) L 02/01/17 08:34 Hct 35.6 % (35.0-51.0) 02/01/17 08:34 MCV 86.7 fL (80.0-94.0) 02/01/17 08:34 MCH 28.1 pg (27.0-31.0) 02/01/17 08:34 MCHC 32.4 g/dL (33.0-37.0) L 02/01/17 08:34 RDW 17.0 % (11.5-14.5) H 02/01/17 08:34 Plt Count 165 K/uL (130-400) 02/01/17 08:34 MPV 8.1 fL (7.2-11.7) 02/01/17 08:34 Neut % (Auto) 40.5 % (50.0-75.0) L 02/01/17 08:34 Lymph % (Auto) 33.1 % (20.0-40.0) 02/01/17 08:34 [facility] % (Auto) 7.5 % (0.0-10.0) 02/01/17 08:34 Eos % (Auto) 17.5 % (0.0-4.0) H 02/01/17 08:34 Baso % (Auto) 1.4 % (0.0-2.0) 02/01/17 08:34 Neut # 1.2 K/uL (1.8-7.0) L 02/01/17 08:34 Lymph # 0.9 K/uL (1.0-4.3) L 02/01/17 08:34 [facility] # 0.2 K/uL (0.0-0.8) 02/01/17 08:34 Eos # 0.5 K/uL (0.0-0.7) 02/01/17 08:34 Baso # 0.0 K/uL (0.0-0.2) 02/01/17 08:34 Differential Comment 01/29/17 07:55 Smear Path Review 01/29/17 07:55 Retic Count 1.5 % (0.5-1.5) 01/31/17 08:04 PT 21.9 SECONDS (9.7-12.2) H 02/01/17 08:34 INR 1.9 02/01/17 08:34 D-Dimer, Quantitative 375 ng/mlDDU (0-243) H 01/28/17 03:18 Sodium 139 mmol/L (132-148) 02/01/17 08:34 Potassium 4.1 mmol/L (3.6-5.2) 02/01/17 08:34 Chloride 106 mmol/L (98-107) 02/01/17 08:34 Carbon Dioxide 27 mmol/L (22-30) 02/01/17 08:34 Anion Gap 11 (10-20) 02/01/17 08:34 BUN 26 mg/dL (9-20) H 02/01/17 08:34 Creatinine 0.9 MG/DL (0.8-1.5) 02/01/17 08:34 Est GFR ( Amer) > 60 02/01/17 08:34 Est GFR (Non-Af Amer) > 60 02/01/17 08:34 Random Glucose 90 mg/dL (75-110) 02/01/17 08:34 Calcium 9.0 mg/dl (8.6-10.4) 02/01/17 08:34 Magnesium 2.0 mg/dL (1.6-2.3) 01/30/17 08:00 Ferritin 92.1 ng/mL 01/31/17 08:04 Total Bilirubin 0.5 mg/dL (0.2-1.3) 02/01/17 08:34 AST 43 U/L (17-59) 02/01/17 08:34 ALT 44 U/L (21-72) 02/01/17 08:34 Alkaline Phosphatase 85 U/L (38-126) 02/01/17 08:34 Troponin I < 0.0120 ng/mL (0.00-0.120) 01/28/17 03:18 NT-Pro-B Natriuret Pep 153 pg/mL (0-450) 01/28/17 03:18 Total Protein 6.9 g/dL (6.3-8.3) 02/01/17 08:34 Albumin 3.5 g/dL (3.5-5.0) 02/01/17 08:34 Globulin 3.4 gm/dL (2.2-3.9) 02/01/17 08:34 Albumin/Globulin Ratio 1.0 (1.0-2.1) 02/01/17 08:34 Vitamin B12 278 pg/mL (239-931) 01/31/17 08:04 Folate 6.2 ng/mL 01/31/17 08:04 Absolute Lymphs (Flow) 564 Cells/mcL (850-3900) L 01/29/17 19:54 % CD3 Cells 71 Percent (57-85) 01/29/17 19:54 Absolute CD3 Count 400 Cells/mcL (840-3060) L 01/29/17 19:54 % CD4 Cells 5 Percent (30-61) L 01/29/17 19:54 Absolute CD4 Count 30 Cells/mcL (490-1740) L 01/29/17 19:54 T-Help/Suppress Ratio 0.08 Ratio (0.86-5.00) L 01/29/17 19:54 % CD8 Cells 64 Percent (12-42) H 01/29/17 19:54 Absolute CD8 Count 362 Cells/mcL (180-1170) 01/29/17 19:54 T-Lymph Analys Comment See note 01/29/17 19:54 HIV-1 RNA copies/mL 789576 copies/mL (<20) H 01/29/17 19:54 HIV-1 RNA logcopies/mL 5.39 (<1.30) H 01/29/17 19:54 HIV 1&2 Antibody Screen Reactive (NEGATIVE) H 01/29/17 19:54 Attending/Attestation - Attestation I have personally seen and examined this patient.: Yes I have fully participated in the care of the patient.: Yes I have reviewed all pertinent clinical information, including history, physical exam and plan: Yes Notes (Text): Patient seen, examined, and case discussed with day-time international relations teacher. Patient seen, examined and lengthy discussion regarding discharge planning with the patient. Patient's INR is at 1.9. Patient recommended for INR check for Saturday at the [facility]. Patient given two week supply of Coumadin 5mg once a day to ensure patient's follow up with primary care doctor of his choosing and avoid coumadin toxicity. Coumadin compared to alternatives to anti- coagulation has least side effect to HIV medications. Patient's CD4 count came back: 30. Patient reports that's an improvement from prior CD4 28. Patient discussed at length the risks regarding HIV and the risk of AIDS defining illness such as PCP pneumonia/ZAIN/and cancer if he continues to remain non-compliant on his HIV medications and prophylactic therapy. Patient requests to contact his [facility] medical team to relay information at the number provided. Resident left message with the clinic given it was late Saturday afternoon. Patient encouraged at length to STOP smoking to limit his risk including but limited to cancer given he has pulmonary nodules and recommended follow-up CT imaging in 3 months to monitor. Patient reports he will follow-up with his infectious disease team in regards to further management regarding HIV. Patient has yet to determine where he will pursue primary care between [place] , [place], or in [place]. Patient provided [facility] ([phone]) at the hospital to establish care or follow-up post hospitalization. This is a summary of patient's hospitalization. Please see EMR for further details. Patient advised to follow-up with medical records on Saturday during office hours to send over records of this hospitalization with his infectious disease doctors /
[2017-02-04 05:13] LABS: B2 GLYCOPROTEIN I AB(IGA) <9 SAU (<=20); B2 GLYCOPROTEIN I AB(IGG) <9 SGU (<=20); B2 GLYCOPROTEIN I AB(IGM) <9 SMU (<=20)
[2017-02-04 06:04] LABS: CARDIOLIPIN AB (IGA) <11 APL (<=11); CARDIOLIPIN AB (IGG) <14 GPL (<=14); CARDIOLIPIN AB (IGM) 16 MPL (<=12)
[2017-02-04 15:03] LABS: PHOSPHATIDYLSERINE AB IGA <20 U/mL (<20); PHOSPHATIDYLSERINE AB IGG <10 U/mL (<10); PHOSPHATIDYLSERINE AB IGM <25 U/mL (<25)
[2017-02-20 05:29] LABS: HIV-1 GENOTYPE DETECTED
== END 2017-02-01 18:30 | disposition home or self-care (01) ==
LOC: SUPCPDRO 23:55 → C.ER 23:55 → C.9E 01-28 05:27 → C.5T 01-28 06:58
PROVIDERS: ADMIT Internal Medicine; ATTEND Internal Medicine
DX: I82.511 Chronic embolism and thrombosis of right femoral vein (principal); Z79.01 Long term (current) use of anticoagulants; F17.200 Nicotine dependence, unspecified, uncomplicated; F41.9 Anxiety disorder, unspecified; J44.9 Chronic obstructive pulmonary disease, unspecified; N13.30 Unspecified hydronephrosis; Z91.19 Patient's noncompliance with other medical treatment and regimen; K21.9 Gastro-esophageal reflux disease without esophagitis; D70.9 Neutropenia, unspecified; D64.9 Anemia, unspecified; B20 Human immunodeficiency virus [HIV] disease
CPT/HCPCS: 36415; 71010; 71275; 80053; 81240; 81241; 82607; 82728; 82746; 83735; 83880; 84484; 85025; 85044; 85378; 85610; 86146; 86147; 86148; 86359; 86360; 86703; 87389; 87536; 93306; 93970; 94640; 96372; 99285; G0378; J1650; Q9967

== ENCOUNTER 2017-03-05 10:25 | Inpatient (IN) | payer MEDICAID ==
[2017-03-05] MEDS ORDERED: Sodium Chloride 0.9% 1,000 ML IV ONE (11:21)
[2017-03-05] MEDS ORDERED: Iohexol 240 (50 ml) PO STA (11:21)
[2017-03-05] MEDS ORDERED: Iohexol 240 (50 ml) ONE (11:56)
[2017-03-05] MEDS ORDERED: Sodium Chloride 0.9% 1,000 ML ONE (11:56)
[2017-03-05 12:01] LABS: BASO % 0.9 % (0.0-2.0); EOS # 0.2 K/uL (0.0-0.7); EOS % 7.1 % (0.0-4.0); HEMATOCRIT 31.6 % (35.0-51.0); LYMPH # 0.6 K/uL (1.0-4.3); LYMPH % 19.3 % (20.0-40.0); MEAN CELL VOLUME 86.1 fL (80.0-94.0); MEAN CORPUSCULAR HEMOGLOBIN 29.9 pg (27.0-31.0); MEAN CORPUSCULAR HGB CONC 34.7 g/dL (33.0-37.0); MEAN PLATELET VOLUME 8.1 fL (7.2-11.7); MONO # 0.2 K/uL (0.0-0.8); MONO % 5.8 % (0.0-10.0); RED CELL DISTRIBUTION WIDTH 16.9 % (11.5-14.5); WHITE BLOOD COUNT 3.3 K/uL (4.8-10.8)
[2017-03-05 12:19] LABS: CHLORIDE 100 mmol/L (98-107)
[2017-03-05 12:20] LABS: POTASSIUM 4.1 mmol/L (3.6-5.2); SODIUM 140 mmol/L (132-148)
[2017-03-05 12:22] LABS: AST/SGOT 34 U/L (17-59); BILIRUBIN,TOTAL 0.5 mg/dL (0.2-1.3); CARBON DIOXIDE 28 mmol/L (22-30); GFR AFRICAN-AMERICAN > 60; TOTAL PROTEIN 6.9 g/dL (6.3-8.3)
[2017-03-05 12:23] LABS: ALKALINE PHOSPHATASE 80 U/L (38-126); ALT/SGPT 31 U/L (21-72); BLOOD UREA NITROGEN 12 mg/dL (9-20); CALCIUM 8.7 mg/dl (8.6-10.4); GLUCOSE,RANDOM 79 mg/dL (75-110)
--- NOTE | 2017-03-05 12:23 | C.PDOC ---
History Of Present Illness 46 year old male, with PMHx of HIV/AIDS (semi-compliant with meds), right DVT ( with IVC filter), bipolar disorder, presents to the ED for evaluation of constipation and increasing abdominal pain for the last week. States that he has not had a bowel movement in the past week. Notes using Magnesium Citrate, enema, and other OTC laxatives without improvement. Patient also complaints of worsening pain and warmth to chronic right lower leg rash. Otherwise, denies any nausea, vomiting, fever, chills, urinary symptoms, or sensory changes. Time Seen by Provider: 03/05/17 10:56 Chief Complaint (Nursing): GI Problem History Per: Patient History/Exam Limitations: no limitations Onset/Duration Of Symptoms: Days (1 week) Current Symptoms Are (Timing): Still Present Location Of Pain/Discomfort: Diffuse Radiation Of Pain To:: None Quality Of Discomfort: "Pain" Associated Symptoms: Constipation. denies: Fever, Chills, Nausea, Vomiting, Diarrhea, Loss Of Appetite, Back Pain, Chest Pain, Urinary Symptoms Exacerbating Factors: None Alleviating Factors: None Additional History Per: Patient Past Medical History Reviewed: Historical Data, Nursing Documentation, Vital Signs Vital Signs: Last Vital Signs Temp 97.6 F 03/05/17 18:34 Pulse 66 03/05/17 18:34 Resp 20 03/05/17 18:34 BP 113/77 03/05/17 18:34 Pulse Ox 97 03/05/17 18:58 - Medical History PMH: Anemia, Anxiety, Asthma, Bipolar Disorder, COPD, Depression, Deep Vein Thrombosis, Gall Bladder Disease, HIV, Pneumonia, Seizures Denies: Chronic Kidney Disease Surgical History: Cholecystectomy (december) Family History: States: No Known Family Hx - Social History Hx Tobacco Use: Yes (heavy smoker) Hx Alcohol Use: No Hx Substance Use: No - Immunization History Hx Tetanus Toxoid Vaccination: No Hx Influenza Vaccination: Yes Hx Pneumococcal Vaccination: Yes (07/2014) Review Of Systems Constitutional: Negative for: Fever, Chills Gastrointestinal: Positive for: Abdominal Pain, Constipation. Negative for: Nausea, Vomiting, Diarrhea Genitourinary: Negative for: Dysuria, Frequency, Hematuria Musculoskeletal: Positive for: Leg Pain (right lower). Negative for: Back Pain Skin: Positive for: Rash (right lower leg) Neurological: Negative for: Weakness, Numbness Physical Exam - Physical Exam Appears: Non-toxic, No Acute Distress Skin: Warm, Dry, Rash (scaly appearing skin with erythema, warmth, and tenderness to right lower leg) Head: Atraumatic, Normacephalic Oral Mucosa: Dry Teeth: Edentulous Neck: Normal ROM, Supple Cardiovascular: Rhythm Regular, No Murmur Respiratory: Normal Breath Sounds, No Rales, No Rhonchi, No Wheezing Gastrointestinal/Abdominal: Bowel Sounds (hypoactive), Soft, Tenderness (diffuse ), No Guarding, No Rebound Extremity: Normal ROM, Tenderness (right lower ext with scaly erythematous (not warm) rash), No Pedal Edema, No Calf Tenderness, Capillary Refill (<2 sec.), No Deformity, No Swelling Pulses: Left Dorsalis Pedis: Normal, Right Dorsalis Pedis: Normal Neurological/Psych: Oriented x3, Normal Speech, Normal Cognition, Normal Motor, Normal Sensation ED Course And Treatment - Laboratory Results Result Diagrams: 03/05/17 11:54 03/05/17 11:54 O2 Sat by Pulse Oximetry: 97 (RA) Pulse Ox Interpretation: Normal Medical Decision Making Medical Decision Making: Abd & pelvis CT, venous duplex scan of right lower extremity, blood work, urinalysis ordered and reviewed. Patient was treated with Iohexol, and IV fluids. INR noted to be 1. Pt states he did not take his Coumadin in the last 3-4 days. 7 pm pt still with no bm after soap clifford enema. still with abdominal pain. pt with subtherapeutic inr; will admit to Dr Hernandez for ab pain, subtherapeutic inr. Disposition Discussed With : Gena Griffin Doctor Will See Patient In The: Hospital - Disposition Disposition Time: 19:06 Condition: STABLE Forms: [facility] (Niuean) - Clinical Impression Clinical Impression: Constipation, Chronic deep vein thrombosis (DVT) of right lower extremity, Subtherapeutic anticoagulation - PA / MDS NURSE / Resident Statement MD/DO has reviewed & agrees with the documentation as recorded. - Scribe Statement The provider has reviewed the documentation as recorded by the Scribe Diana Puentes All medical record entries made by the Scribe were at my direction and personally dictated by me. I have reviewed the chart and agree that the record accurately reflects my personal performance of the history, physical exam, medical decision making, and the department course for this patient. I have also personally directed, reviewed, and agree with the discharge instructions and disposition. Decision To Admit - Pt Status Changed To: Hospital Disposition Of: Observation - . Bed Request Type: Regular Patient Diagnosis: Constipation, Chronic deep vein thrombosis (DVT) of right lower extremity, Subtherapeutic anticoagulation
[2017-03-05] MEDS ORDERED: Iodixanol 320 MG/ML 100 ML BOTTLE IV ONE (13:35)
[2017-03-05 13:46] LABS: RBC URINE < 1 /hpf (0-3); URINE BILIRUBIN NEGATIVE (NEGATIVE); URINE BLOOD NEGATIVE (NEGATIVE); URINE COLOR Yellow (YELLOW); URINE GLUCOSE (UA) NORMAL (Normal); URINE KETONE NEGATIVE (NEGATIVE); URINE LEUKOCYTE ESTERASE NEG Leu/uL (Negative); URINE PROTEIN NEGATIVE (NEGATIVE); URINE UROBILINOGEN NORMAL mg/dL (0.2-1.0); WBC URINE < 1 /hpf (0-5)
--- NOTE | 2017-03-05 14:37 | CT ---
PROCEDURE: CT Abdomen and Pelvis with oral and IV contrast. HISTORY: abd pain COMPARISON: CT chest, abdomen, and pelvis with contrast performed 11/19/14 TECHNIQUE: Contiguous axial images of the abdomen and pelvis. Oral and IV contrast was administered. Coronal and Sagittal reformats generated and reviewed. Contrast dose: 100 mL Visipaque Radiation dose: Total exam DLP = 1223.12 MGy-cm. This CT exam was performed using one or more of the following dose reduction techniques: Automated exposure control, adjustment of the mA and/or kV according to patient size, and/or use of iterative reconstruction technique. FINDINGS: LOWER THORAX: No visible consolidation, pleural effusion, or pneumothorax. Small hiatal hernia. LIVER: Mild pneumobilia. GALLBLADDER AND BILE DUCTS: Cholecystectomy. PANCREAS: Unremarkable. SPLEEN: Unremarkable. ADRENALS: Unremarkable. KIDNEYS AND URETERS: The kidneys enhance symmetrically. No hydronephrosis or obstructing renal calculus. BLADDER: The urinary bladder appears unremarkable. REPRODUCTIVE: Unremarkable. APPENDIX: The appendix appears within normal limits of caliber. No secondary signs of acute appendicitis. BOWEL: The stomach is nondistended. The bowel loops appear within normal limits of caliber without evidence of intestinal obstruction. Moderate constipation. PERITONEUM: No significant free fluid. No definite free air. LYMPH NODES: No bulky lymphadenopathy identified. VASCULATURE: IVC filter. No aortic aneurysm. BONES: No acute osseous abnormality is detected. OTHER FINDINGS: Fat containing umbilical hernias. IMPRESSION: Moderate constipation. Cholecystectomy. Mild pneumobilia. IVC filter. Additional incidental findings as above.
[2017-03-05] MEDS ORDERED: Enoxaparin 100 mg Syringe SC STA (18:02)
[2017-03-05] MEDS: Enoxaparin 60 mg Syringe SC SCH (22:30)
[2017-03-05] MEDS: Clotrimazole 1% Cream 15 GM TUBE TOP SCH (23:22)
[2017-03-06 07:58] LABS: MEAN CELL VOLUME 85.6 fL (80.0-94.0); MEAN CORPUSCULAR HEMOGLOBIN 29.1 pg (27.0-31.0); MEAN PLATELET VOLUME 8.5 fL (7.2-11.7); RED CELL DISTRIBUTION WIDTH 16.8 % (11.5-14.5)
[2017-03-06] MEDS ORDERED: Tiotropium 18 mcg Cap For Inhalation INH SCH (08:00)
[2017-03-06 08:03] LABS: WHITE BLOOD COUNT 1.7 K/uL (4.8-10.8)
[2017-03-06 08:15] LABS: CHLORIDE 104 mmol/L (98-107); POTASSIUM 4.2 mmol/L (3.6-5.2); SODIUM 140 mmol/L (132-148)
[2017-03-06 08:18] LABS: BLOOD UREA NITROGEN 9 mg/dL (9-20); CARBON DIOXIDE 30 mmol/L (22-30); CHOLESTEROL 138 mg/dL (0-199); GFR AFRICAN-AMERICAN > 60; GLUCOSE,RANDOM 76 mg/dL (75-110)
[2017-03-06 08:19] LABS: CALCIUM 8.6 mg/dl (8.6-10.4)
[2017-03-06 08:22] LABS: IRON 57 ug/dL (49-181)
[2017-03-06 08:52] LABS: THYROID STIMULATING HORMONE 1.75 mIU/L (0.46-4.68)
[2017-03-06 09:26] LABS: FOLATE 13.5 ng/mL
[2017-03-06] MEDS: Atovaquone 750 mg/5 ml Susp UD PO SCH (09:40)
[2017-03-06] MEDS: Enoxaparin 60 mg Syringe SC SCH ×2 (09:40→22:16)
[2017-03-06] MEDS: Emtricitabine-Tenofovir 200 mg-300 mg Tab PO SCH (09:40)
[2017-03-06] MEDS: Clotrimazole 1% Cream 15 GM TUBE TOP SCH ×2 (09:40→17:41)
--- NOTE | 2017-03-06 09:49 | CP.PCM.CON ---
<Mae Puentes - Last Filed: 03/06/17 10:02> History of Present Illness - History of Present Illness History of Present Illness: PGY4 Follow-up Note Vidal Cabrera a 46M w/ hx of HIV, HTN who presented to the ED with complaints of Abd pain. Pt states that the onset has been for 2 days. He states that the pain is intermittent. Grades the pain as an 8 out of 10. Location is diffuse but mainly in the lower quad B/L. Denies any radiation. He cannot recall any aggravating factors, but states that lying supine alleviates some of his pain. He state that he has not had a BM in 1 week. He was given lactulose and enema in the ER without relief or sig output. Denies any recent weightloss. Denies any BRBPR, melena, hematachezia or hematemesis. Pt is noncompliant on his HIV meds and coumdin. His last Tcell (helper) count was in the 20's. PMH: Anemia, Anxiety, Asthma, Bipolar Disorder, COPD, Depression, Deep Vein Thrombosis, Gall Bladder Disease, HIV, Pneumonia, Seizures Denies: Chronic Kidney Disease Surgical History: Cholecystectomy (december) Family History: States: No Known Family Hx Endo hx: none Past Patient History - Infectious Disease Hx of Infectious Diseases: None - Tetanus Immunizations Tetanus Immunization: Unknown - Past Medical History & Family History Past Medical History?: Yes - Past Social History Smoking Status: Heavy Smoker > 10 Cigarettes Daily - CARDIAC Hx Cardiac Disorders: No - PULMONARY Hx Asthma: Yes Hx Chronic Obstructive Pulmonary Disease (COPD): Yes Hx Pneumonia: Yes - NEUROLOGICAL Hx Seizures: Yes - HEENT Hx HEENT Problems: No - RENAL Hx Chronic Kidney Disease: No - ENDOCRINE/METABOLIC Hx Endocrine Disorders: No - HEMATOLOGICAL/ONCOLOGICAL Hx Anemia: Yes Hx Human Immunodeficiency Virus (HIV): Yes - INTEGUMENTARY Hx Dermatological Problems: Yes Hx Fernandez: Yes (chronic right lowet extremity) - MUSCULOSKELETAL/RHEUMATOLOGICAL Hx Falls: No - GASTROINTESTINAL Hx Gall Bladder Disease: Yes - GENITOURINARY/GYNECOLOGICAL Hx Genitourinary Disorders: No - PSYCHIATRIC Hx Anxiety: Yes Hx Bipolar Disorder: Yes Hx Depression: Yes Hx Substance Use: No - SURGICAL HISTORY Hx Cholecystectomy: Yes (december) - ANESTHESIA Hx Anesthesia: Yes Hx Anesthesia Reactions: Yes (DIFFICULT TO AROUSE) Hx Malignant Hyperthermia: No Meds Allergies/Adverse Reactions: Allergies Allergy/AdvReac Type Severity Reaction Status Date / Time cefaclor [From Ceclor] Allergy Severe URTICARIA Verified 03/05/17 10:40 piperacillin sodium Allergy Severe Verified 03/05/17 10:40 [From Zosyn] sulfamethoxazole Allergy Severe FEVER Verified 03/05/17 10:40 [From Bactrim] tazobactam sodium Allergy Severe Verified 03/05/17 10:40 [From Zosyn] trimethoprim [From Bactrim] Allergy Severe FEVER Verified 03/05/17 10:40 capsaicin Allergy Uncoded 03/05/17 10:43 - Medications Medications: Current Medications Acetaminophen (Tylenol 325mg Tab) 650 mg PO TID PRN PRN Reason: Pain, moderate (4-7) Albuterol (Ventolin Hfa 90 Mcg/Actuation (8 G)) 1 puff IH RQ6 PRN PRN Reason: Shortness of Breath Amlodipine Besylate (Norvasc) 5 mg PO DAILY [facility] Atovaquone (Mepron) 750 mg PO DAILY [facility] Clotrimazole (Lotrimin 1%) 0 gm TOP BID [facility] Last Admin: 03/05/17 23:22 Dose: 1 applic Dolutegravir Sodium (Tivicay) 50 mg PO DAILY [facility] Emtricitabine/Tenofovir (Truvada 200 Mg-300 Mg) 1 tab PO DAILY [facility] Enoxaparin Sodium (Lovenox) 60 mg SC Q12 [facility] Last Admin: 03/05/17 22:30 Dose: 60 mg Gabapentin (Neurontin) 600 mg PO TID [facility] Lactulose (Enulose) 20 gm PO HS [facility] Last Admin: 03/05/17 22:30 Dose: 20 gm Levetiracetam (Keppra) 500 mg PO DAILY [facility] Quetiapine Fumarate (Seroquel) 100 mg PO HS [facility] Last Admin: 03/05/17 22:31 Dose: 100 mg Tiotropium [place] (Spiriva) 18 mcg INH RQ24 [facility] Warfarin Sodium (Coumadin) 5 mg PO 1800 [facility] Physical Exam - Constitutional Appears: Well, No Acute Distress - Head Exam Head Exam: ATRAUMATIC, NORMOCEPHALIC - Eye Exam Eye Exam: Normal appearance - ENT Exam ENT Exam: Mucous Membranes Moist, Normal Exam - Neck Exam Neck exam: Positive for: Normal Inspection - Respiratory Exam Respiratory Exam: Clear to Auscultation Bilateral, NORMAL BREATHING PATTERN. absent: Rales, Rhonchi, Wheezes - Cardiovascular Exam Cardiovascular Exam: REGULAR RHYTHM, RRR, +S1, +S2 - GI/Abdominal Exam GI & Abdominal Exam: Diminished Bowel Sounds, Firm, Hypoactive Bowel Sounds, Rigid, Tenderness. absent: Distended, Guarding, Mass, Organomegaly, Rebound - Extremities Exam Extremities exam: Positive for: normal inspection - Neurological Exam Neurological exam: Alert, Oriented x3 - Psychiatric Exam Psychiatric exam: Normal Affect, Normal Mood - Skin Skin Exam: Dry, Intact, Normal Color, Warm Results - Vital Signs Recent Vital Signs: Last Vital Signs Temp 97.5 F L 03/06/17 08:00 Pulse 73 03/06/17 08:00 Resp 20 03/06/17 08:00 BP 120/77 03/06/17 08:00 Pulse Ox 98 03/06/17 08:00 - Labs Result Diagrams: 03/06/17 07:40 03/06/17 07:40 Labs: Laboratory Results - last 24 hr 03/06/17 03/06/17 03/06/17 07:40 07:40 07:40 WBC 1.7 L* RBC 3.62 L Hgb 10.5 L Hct 31.0 L MCV 85.6 MCH 29.1 MCHC 34.0 RDW 16.8 H Plt Count 108 L MPV 8.5 Sodium 140 Potassium 4.2 Chloride 104 Carbon Dioxide 30 Anion Gap 11 BUN 9 Creatinine 0.8 Est GFR ( Amer) > 60 Est GFR (Non-Af Amer) > 60 Random Glucose 76 Hemoglobin A1c 5.4 Calcium 8.6 Iron TIBC % Saturation Triglycerides 130 Cholesterol 138 LDL Cholesterol Direct 80 HDL Cholesterol 28 L Vitamin B12 342 Folate 13.5 TSH 3rd Generation 1.75 03/06/17 07:40 WBC RBC Hgb Hct MCV MCH MCHC RDW Plt Count MPV Sodium Potassium Chloride Carbon Dioxide Anion Gap BUN Creatinine Est GFR ( Amer) Est GFR (Non-Af Amer) Random Glucose Hemoglobin A1c Calcium Iron 57 TIBC 239 L % Saturation 24 Triglycerides Cholesterol LDL Cholesterol Direct HDL Cholesterol Vitamin B12 Folate TSH 3rd Generation Assessment & Plan - Assessment and Plan (Free Text) Assessment: This pt is a 46M w/ hx of HIV, DVT, who presents to the Ed with complaints of abd pain. Based on clinical presentation and CT abd, pt had retained stool in colon likely 2/2 constipation. Etiology for his Abd pain is likely 2/2 constipation 1. Abd pain likely 22/ constipation 2. HIV, non complaint on meds 3. Leukopenic and thrombocytopenic etiology unknown, may be 2/2 HIV or meds Plan: -continue lactulose - add senna and Miralax - liquid diet for now - continue enema - recommend Miralax daily after today - if symptoms persist as outpt, recommend GI follow-up - no acute intervention at this time - May want to consider hem/onc w/u for leukopenia and thrombocytopenia -Will sign off, please let us know if we can be of further assistance D/W Dr. Gama <Peter Gama - Last Filed: 03/06/17 13:05> Meds - Medications Medications: Current Medications Acetaminophen (Tylenol 325mg Tab) 650 mg PO TID PRN PRN Reason: Pain, moderate (4-7) Albuterol (Ventolin Hfa 90 Mcg/Actuation (8 G)) 1 puff IH RQ6 PRN PRN Reason: Shortness of Breath Amlodipine Besylate (Norvasc) 5 mg PO DAILY [facility] Last Admin: 03/06/17 09:40 Dose: 5 mg Atovaquone (Mepron) 750 mg PO DAILY [facility] Last Admin: 03/06/17 09:40 Dose: 750 mg Clotrimazole (Lotrimin 1%) 0 gm TOP BID [facility] Last Admin: 03/06/17 09:40 Dose: 1 applic Dolutegravir Sodium (Tivicay) 50 mg PO DAILY [facility] Last Admin: 03/06/17 09:40 Dose: 50 mg Emtricitabine/Tenofovir (Truvada 200 Mg-300 Mg) 1 tab PO DAILY [facility] Last Admin: 03/06/17 09:40 Dose: 1 tab Enoxaparin Sodium (Lovenox) 60 mg SC Q12 [facility] Last Admin: 03/06/17 09:40 Dose: 60 mg Gabapentin (Neurontin) 600 mg PO TID [facility] Last Admin: 03/06/17 09:40 Dose: 600 mg Levetiracetam (Keppra) 500 mg PO DAILY [facility] Last Admin: 03/06/17 09:40 Dose: 500 mg Polyethylene Glycol (Miralax) 17 gm PO BID [facility] Last Admin: 03/06/17 11:10 Dose: 17 gm Quetiapine Fumarate (Seroquel) 100 mg PO HS [facility] Last Admin: 03/05/17 22:31 Dose: 100 mg Sennosides (Senokot Tab) 8.6 mg PO DAILY [facility] Last Admin: 03/06/17 11:10 Dose: 8.6 mg Tiotropium [place] (Spiriva) 18 mcg INH RQ24 [facility] Warfarin Sodium (Coumadin) 5 mg PO 1800 [facility] Results - Vital Signs Recent Vital Signs: Last Vital Signs Temp 97.5 F L 03/06/17 08:00 Pulse 73 03/06/17 08:00 Resp 20 03/06/17 08:00 BP 120/77 03/06/17 08:00 Pulse Ox 98 03/06/17 08:00 - Labs Result Diagrams: 03/06/17 07:40 03/06/17 07:40 Labs: Laboratory Results - last 24 hr 03/06/17 03/06/17 03/06/17 07:40 07:40 07:40 WBC 1.7 L* RBC 3.62 L Hgb 10.5 L Hct 31.0 L MCV 85.6 MCH 29.1 MCHC 34.0 RDW 16.8 H Plt Count 108 L MPV 8.5 Differential Comment PT INR APTT Sodium 140 Potassium 4.2 Chloride 104 Carbon Dioxide 30 Anion Gap 11 BUN 9 Creatinine 0.8 Est GFR ( Amer) > 60 Est GFR (Non-Af Amer) > 60 Random Glucose 76 Hemoglobin A1c 5.4 Calcium 8.6 Iron TIBC % Saturation Triglycerides 130 Cholesterol 138 LDL Cholesterol Direct 80 HDL Cholesterol 28 L Vitamin B12 342 Folate 13.5 TSH 3rd Generation 1.75 03/06/17 03/06/17 07:40 10:45 WBC RBC Hgb Hct MCV MCH MCHC RDW Plt Count MPV Differential Comment PT 11.5 INR 1.0 APTT 42 H D Sodium Potassium Chloride Carbon Dioxide Anion Gap BUN Creatinine Est GFR ( Amer) Est GFR (Non-Af Amer) Random Glucose Hemoglobin A1c Calcium Iron 57 TIBC 239 L % Saturation 24 Triglycerides Cholesterol LDL Cholesterol Direct HDL Cholesterol Vitamin B12 Folate TSH 3rd Generation Attending/Attestation - Attestation I have personally seen and examined this patient.: Yes I have fully participated in the care of the patient.: Yes I have reviewed all pertinent clinical information: Yes Notes (Text): 03/06/17 13:03 46 year old male with HIV, non-compliance, admitted with abdominal pain / constipation 1. Abdominal pain 2. Constipation Plan: -ct reviewed -unremarkable -recommend bowel regimen with miralax -diet as tolerated -ok to discharge from gi standpoint
[2017-03-06] MEDS: POLYETHYLENE GLYCOL 3350 17 GM/Dose PACKET PO SCH ×2 (11:10→17:41)
--- NOTE | 2017-03-06 11:20 | VASCLAB ---
PROCEDURE: Right Lower Extremity Venous Duplex Exam. HISTORY: hx right dvt, non coml with meds; worse swelling PRIORS: None. TECHNIQUE: Right common femoral, femoral, popliteal and posterior tibial, peroneal and great saphenous veins were evaluated. Flow was assessed with color Doppler, compressibility, assessment of phasic flow and augmentation response. Report prepared by MAHOGANY Lloyd, RVT FINDINGS: RIGHT: 1. Common Femoral Vein: 1.1. Compressibility - Fully compressible: Thrombus - None: Flow - Phasic: Augmentation -Normal: Reflux - None. 2. Femoral Vein: 2.1. Compressibility - Partial: Thrombus - Chronic: Flow - Reduced : Augmentation -Reduced: Reflux - None. 3. Popliteal Vein: 3.1. Compressibility - Partial: Thrombus - Chronic: Flow - Reduced : Augmentation -Reduced: Reflux - None. 4. Posterior Tibial Vein: 4.1. Compressibility - : Thrombus - : Flow - : Augmentation -: Reflux - . 5. Peroneal Vein: 5.1. Compressibility - : Thrombus - : Flow - : Augmentation -: Reflux - . 6. Great Saphenous Vein: 6.1. Compressibility - Fully compressible: Thrombus -None: Flow - Phasic: Augmentation - Normal: Reflux - None. OTHER FINDINGS: Due to swelling in the calf, the right peroneal and posterior tibial vein are not visualized. 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 Normal venous flow noted in the left common femoral vein.
[2017-03-06] MEDS ORDERED: Mineral Oil Enema 135 ml RC SCH ×2 (12:30→14:00)
--- NOTE | 2017-03-06 12:59 | CP.PCM.CON ---
History of Present Illness - History of Present Illness History of Present Illness: INFECTIOUS DISEASE CONSULT; HPI; 46-year-old male with history of HIV/AIDS noncompliant with meds, hypertension, right DVT(with IVC filter ), bipolar disorder, COPD, history of PCP pneumonia, who presented to [facility] on 03/05/17 for complaints of abdominal pain for the last 2 days and cramping. Patient states he has been constipated for about a week and has tried [id number]-brh-[id number] laxatives with magnesium citrate, enemas without any improvement. Patient was given lactulose and enema in the ER without relief or significant output. Patient denies any recent weight loss or loss of appetite. Denies having any melena, bright red blood per rectum, hematochezia or hematemesis. Patient also states he is on Coumadin. Patient states his last T-cell lymphocyte count was 28 and viral load very high. Patient states he was placed on TIVICAY 50 mg once a day and Truvada 1 TABLET OD .. Patient Has Many Allergies Including Sulfamethoxazole, Zosyn, Cefaclor, Capsaicin. Patient presently on Mepron 750 by mouth once a day for PCP prophylaxis. Patient denies any cough or expectoration. Patient also complains of worsening pain and warmth to chronic right lower leg rash which she states developed secondary to capsaicin. Patient also has multiple deep ulcers covered with scabs and stasis dermatitis changes with cellulitis right lower extremity. 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 patient had CT scan of the abdomen and pelvis which showed constipation and pneumobilia and IVC filter. Cholecystectomy was also noted. INFECTIOUS DISEASE CONSULTATION REQUESTED BY PMD FOR HIV/LEUKOPENIA AND ABDOMINAL PAIN. PATIENT DENIES ANY FEVER OR CHILLS. PMH: Anemia, Anxiety, Asthma, Bipolar Disorder, COPD, Depression, Deep Vein Thrombosis, Gall Bladder Disease, HIV, Pneumonia, Seizures Denies: Chronic Kidney Disease Surgical History: Cholecystectomy (december) Family History: States: No Known Family Hx MEDS; SEE MARS. Endo hx: none Review of Systems - Constitutional Constitutional: absent: Chills, Fever - EENT Eyes: absent: Change in Vision, Floaters Nose/Mouth/Throat: absent: Mouth Lesions - Cardiovascular Cardiovascular: absent: Chest Pain, Dyspnea, Dyspnea on Exertion - Respiratory Respiratory: absent: Cough, Chest Congestion - Gastrointestinal Gastrointestinal: Abdominal Pain, Constipation. absent: Diarrhea, Hematemesis, Hematochezia, Nausea, Vomiting - Genitourinary Genitourinary: absent: Dysuria, Pyuria, Urinary Hesitance - Reproductive: Male Reproductive:Male: Pelvic Pain - Integumentary Integumentary: Change in Pigmentation, Erythema, Rash (RIGHT LOWER EXTREMITY WITH CHRONIC STASIS DERMATITIS/ECZEMA. MULTIPLE DEEP ULCERSRIGHT LOWER EXTREMITY WITH EXCORIATIONS NOTED.) - Neurological Neurological: absent: Dizziness, Headaches - Psychiatric Psychiatric: Anxiety, Depression - Hematologic/Lymphatic Hematologic: As Per HPI. absent: Easy Bleeding, Easy Bruising, Lymphadenopathy Past Patient History - Infectious Disease Hx of Infectious Diseases: None - Tetanus Immunizations Tetanus Immunization: Unknown - Past Medical History & Family History Past Medical History?: Yes - Past Social History Smoking Status: Heavy Smoker > 10 Cigarettes Daily - CARDIAC Hx Cardiac Disorders: No - PULMONARY Hx Asthma: Yes Hx Chronic Obstructive Pulmonary Disease (COPD): Yes Hx Pneumonia: Yes - NEUROLOGICAL Hx Seizures: Yes - HEENT Hx HEENT Problems: No - RENAL Hx Chronic Kidney Disease: No - ENDOCRINE/METABOLIC Hx Endocrine Disorders: No - HEMATOLOGICAL/ONCOLOGICAL Hx Anemia: Yes Hx Human Immunodeficiency Virus (HIV): Yes - INTEGUMENTARY Hx Dermatological Problems: Yes Hx Fernandez: Yes (chronic right lowet extremity) - MUSCULOSKELETAL/RHEUMATOLOGICAL Hx Falls: No - GASTROINTESTINAL Hx Gall Bladder Disease: Yes - GENITOURINARY/GYNECOLOGICAL Hx Genitourinary Disorders: No - PSYCHIATRIC Hx Anxiety: Yes Hx Bipolar Disorder: Yes Hx Depression: Yes Hx Substance Use: No - SURGICAL HISTORY Hx Cholecystectomy: Yes (december) - ANESTHESIA Hx Anesthesia: Yes Hx Anesthesia Reactions: Yes (DIFFICULT TO AROUSE) Hx Malignant Hyperthermia: No Meds Allergies/Adverse Reactions: Allergies Allergy/AdvReac Type Severity Reaction Status Date / Time cefaclor [From Ceclor] Allergy Severe URTICARIA Verified 03/05/17 10:40 piperacillin sodium Allergy Severe Verified 03/05/17 10:40 [From Zosyn] sulfamethoxazole Allergy Severe FEVER Verified 03/05/17 10:40 [From Bactrim] tazobactam sodium Allergy Severe Verified 03/05/17 10:40 [From Zosyn] trimethoprim [From Bactrim] Allergy Severe FEVER Verified 03/05/17 10:40 capsaicin Allergy Uncoded 03/05/17 10:43 - Medications Medications: Current Medications Acetaminophen (Tylenol 325mg Tab) 650 mg PO TID PRN PRN Reason: Pain, moderate (4-7) Albuterol (Ventolin Hfa 90 Mcg/Actuation (8 G)) 1 puff IH RQ6 PRN PRN Reason: Shortness of Breath Amlodipine Besylate (Norvasc) 5 mg PO DAILY [facility] Last Admin: 03/06/17 09:40 Dose: 5 mg Atovaquone (Mepron) 750 mg PO DAILY [facility] Last Admin: 03/06/17 09:40 Dose: 750 mg Clotrimazole (Lotrimin 1%) 0 gm TOP BID [facility] Last Admin: 03/06/17 09:40 Dose: 1 applic Dolutegravir Sodium (Tivicay) 50 mg PO DAILY [facility] Last Admin: 03/06/17 09:40 Dose: 50 mg Emtricitabine/Tenofovir (Truvada 200 Mg-300 Mg) 1 tab PO DAILY [facility] Last Admin: 03/06/17 09:40 Dose: 1 tab Enoxaparin Sodium (Lovenox) 60 mg SC Q12 [facility] Last Admin: 03/06/17 09:40 Dose: 60 mg Gabapentin (Neurontin) 600 mg PO TID [facility] Last Admin: 03/06/17 09:40 Dose: 600 mg Levetiracetam (Keppra) 500 mg PO DAILY [facility] Last Admin: 03/06/17 09:40 Dose: 500 mg Mineral Oil (Fleet Mineral Oil Enema) 135 ml RC Q8 [facility] Stop: 03/07/17 06:01 Polyethylene Glycol (Miralax) 17 gm PO BID [facility] Last Admin: 03/06/17 11:10 Dose: 17 gm Quetiapine Fumarate (Seroquel) 100 mg PO HS [facility] Last Admin: 03/05/17 22:31 Dose: 100 mg Sennosides (Senokot Tab) 8.6 mg PO DAILY [facility] Last Admin: 03/06/17 11:10 Dose: 8.6 mg Tiotropium [place] (Spiriva) 18 mcg INH RQ24 [facility] Warfarin Sodium (Coumadin) 5 mg PO 1800 [facility] Physical Exam - Constitutional Appears: No Acute Distress - Head Exam Head Exam: NORMAL INSPECTION - Eye Exam Eye Exam: EOMI, PERRL. absent: Scleral icterus - ENT Exam ENT Exam: Normal Oropharynx - Neck Exam Neck exam: Positive for: Normal Inspection - Respiratory Exam Respiratory Exam: Decreased Breath Sounds - Cardiovascular Exam Cardiovascular Exam: REGULAR RHYTHM, +S1, +S2 - GI/Abdominal Exam GI & Abdominal Exam: Distended, Hypoactive Bowel Sounds, Soft. absent: Organomegaly - Extremities Exam Extremities exam: Positive for: pedal edema (1+ RIGHT LOWER EXTREMITY.), pedal pulses present (PRESENT). Negative for: calf tenderness - Neurological Exam Neurological exam: Alert, CN II-XII Intact, Oriented x3, Reflexes Normal - Psychiatric Exam Psychiatric exam: Normal Mood - Skin Skin Exam: Normal Color, Warm Results - Vital Signs Recent Vital Signs: Last Vital Signs Temp 97.5 F L 03/06/17 08:00 Pulse 73 03/06/17 08:00 Resp 20 03/06/17 08:00 BP 120/77 03/06/17 08:00 Pulse Ox 98 03/06/17 08:00 - Labs Result Diagrams: 03/06/17 07:40 03/06/17 07:40 Labs: Laboratory Results - last 24 hr 03/06/17 03/06/17 03/06/17 07:40 07:40 07:40 WBC 1.7 L* RBC 3.62 L Hgb 10.5 L Hct 31.0 L MCV 85.6 MCH 29.1 MCHC 34.0 RDW 16.8 H Plt Count 108 L MPV 8.5 Differential Comment PT INR APTT Sodium 140 Potassium 4.2 Chloride 104 Carbon Dioxide 30 Anion Gap 11 BUN 9 Creatinine 0.8 Est GFR ( Amer) > 60 Est GFR (Non-Af Amer) > 60 Random Glucose 76 Hemoglobin A1c 5.4 Calcium 8.6 Iron TIBC % Saturation Triglycerides 130 Cholesterol 138 LDL Cholesterol Direct 80 HDL Cholesterol 28 L Vitamin B12 342 Folate 13.5 TSH 3rd Generation 1.75 03/06/17 03/06/17 07:40 10:45 WBC RBC Hgb Hct MCV MCH MCHC RDW Plt Count MPV Differential Comment PT 11.5 INR 1.0 APTT 42 H D Sodium Potassium Chloride Carbon Dioxide Anion Gap BUN Creatinine Est GFR ( Amer) Est GFR (Non-Af Amer) Random Glucose Hemoglobin A1c Calcium Iron 57 TIBC 239 L % Saturation 24 Triglycerides Cholesterol LDL Cholesterol Direct HDL Cholesterol Vitamin B12 Folate TSH 3rd Generation - Imaging and Cardiology CT scan - abdomenand pelvis Status: Report reviewed by me Assessment & Plan (1) Abdominal pain Assessment and Plan: CT of the abdomen and pelvis noted +ve constipation, pneumobilia, IVC filter, cholecystectomy, history of ivc filter. GI on board. Laxatives as per GI. Status: Acute (2) Neutropenia associated with acquired immune deficiency syndrome (AIDS) Assessment and Plan: patient has leukopenia neutropenia with white count of 1.7. Hemoglobin 10.5/hematocrit 31.0 Platelets 108. Consider Neupogen subcutaneous leukopenia persists and falls. consider hematology oncology consult as discussed with staff. Start patient on IV Tygacil 100 mg loading dose followed by 50 mg every 12 hourly for possible cellulitis right lower extremity and chronic deep ulcerations with scabs noted bilateral lower extremities. 03/06/17 Status: Acute (3) Constipation Status: Acute (4) Anemia Status: Acute (5) Deep venous thrombosis of lower extremity Assessment and Plan: patient has IVC filter secondary to right DVT in the past Status: Acute (6) AIDS (acquired immune deficiency syndrome) Assessment and Plan: continue HAART RX. Patient on TIVICAY 50 MG ONCE A DAY DAILY. PATIENT ALSO ON TRUVADA 1 TABLET ONCE A DAY DAILY. PATIENT STATES HE WAS SWITCHED TO DESCOVY (TAF/FTC ) WHICH PHARMACY DOES NOT CARRY.. CHECK hiv-1 RNA-PCR QUANTITATIVE LEVELS. ALSO CHECK T LYMPHOCYTES SUBSET STUDIES. Status: Chronic Priority: Low (7) Stasis dermatitis Assessment and Plan: CLOBETASOL OINTMENT LOCALLY TWICE A DAY. Status: Acute
[2017-03-06] MEDS: Mineral Oil Enema 135 ml RC SCH ×2 (14:11→22:22)
[2017-03-06] MEDS ORDERED: Peg-Electrolyte Oral Soln 4L (Golytely) PO ONE (18:44)
[2017-03-06] MEDS ORDERED: Bisacodyl 5mg EC Tab PO ONE (20:00)
--- NOTE | 2017-03-06 23:24 | CP.PCM.HP ---
History of Present Illness - History of Present Illness History of Present Illness: 46 year old male, with PMHx of HIV/AIDS (semi-compliant with meds), right DVT ( with IVC filter), bipolar disorder, presents to the ED for evaluation of constipation and increasing abdominal pain for the last week. States that he has not had a bowel movement in the past week. Notes using Magnesium Citrate, enema, and other OTC laxatives without improvement. Patient also complaints of worsening pain and warmth to chronic right lower leg rash. Otherwise, denies any nausea, vomiting, fever, chills, urinary symptoms, or sensory changes. Present on Admission - Present on Admission Any Indicators Present on Admission: No Review of Systems - Constitutional Constitutional: As Per HPI - EENT Eyes: As Per HPI Ears: As Per HPI Nose/Mouth/Throat: As Per HPI - Cardiovascular Cardiovascular: As Per HPI - Respiratory Respiratory: As Per HPI - Gastrointestinal Gastrointestinal: Bloating, Constipation - Neurological Neurological: As Per HPI - Psychiatric Psychiatric: As Per HPI - Endocrine Endocrine: As Per HPI - Hematologic/Lymphatic Hematologic: As Per HPI Past Patient History - Infectious Disease Hx of Infectious Diseases: None - Tetanus Immunizations Tetanus Immunization: Unknown - Past Medical History & Family History Past Medical History?: Yes - Past Social History Smoking Status: Heavy Smoker > 10 Cigarettes Daily - CARDIAC Hx Cardiac Disorders: No - PULMONARY Hx Asthma: Yes Hx Chronic Obstructive Pulmonary Disease (COPD): Yes Hx Pneumonia: Yes - NEUROLOGICAL Hx Seizures: Yes - HEENT Hx HEENT Problems: No - RENAL Hx Chronic Kidney Disease: No - ENDOCRINE/METABOLIC Hx Endocrine Disorders: No - HEMATOLOGICAL/ONCOLOGICAL Hx Anemia: Yes Hx Human Immunodeficiency Virus (HIV): Yes - INTEGUMENTARY Hx Dermatological Problems: Yes Hx Fernandez: Yes (chronic right lowet extremity) - MUSCULOSKELETAL/RHEUMATOLOGICAL Hx Falls: No - GASTROINTESTINAL Hx Gall Bladder Disease: Yes - GENITOURINARY/GYNECOLOGICAL Hx Genitourinary Disorders: No - PSYCHIATRIC Hx Anxiety: Yes Hx Bipolar Disorder: Yes Hx Depression: Yes Hx Substance Use: No - SURGICAL HISTORY Hx Cholecystectomy: Yes (december) - ANESTHESIA Hx Anesthesia: Yes Hx Anesthesia Reactions: Yes (DIFFICULT TO AROUSE) Hx Malignant Hyperthermia: No Meds Allergies/Adverse Reactions: Allergies Allergy/AdvReac Type Severity Reaction Status Date / Time cefaclor [From Ceclor] Allergy Severe URTICARIA Verified 03/05/17 10:40 piperacillin sodium Allergy Severe Verified 03/05/17 10:40 [From Zosyn] sulfamethoxazole Allergy Severe FEVER Verified 03/05/17 10:40 [From Bactrim] tazobactam sodium Allergy Severe Verified 03/05/17 10:40 [From Zosyn] trimethoprim [From Bactrim] Allergy Severe FEVER Verified 03/05/17 10:40 capsaicin Allergy Uncoded 03/05/17 10:43 Physical Exam - Constitutional Appears: Well - Head Exam Head Exam: ATRAUMATIC, NORMAL INSPECTION, NORMOCEPHALIC - Eye Exam Eye Exam: EOMI, Normal appearance, PERRL Pupil Exam: NORMAL ACCOMODATION, PERRL - ENT Exam ENT Exam: Mucous Membranes Moist, Normal Exam - Neck Exam Neck exam: Positive for: Normal Inspection - Respiratory Exam Respiratory Exam: Clear to Auscultation Bilateral, NORMAL BREATHING PATTERN - Cardiovascular Exam Cardiovascular Exam: REGULAR RHYTHM - GI/Abdominal Exam GI & Abdominal Exam: Distended, Firm. absent: Tenderness - Rectal Exam Rectal Exam: NORMAL INSPECTION - Exam Exam: Circumcision, NORMAL INSPECTION External exam: NORMAL EXTERNAL EXAM Speculum exam: NORMAL SPECULUM EXAM Bimanual exam: NORMAL BIMANUAL EXAM - Extremities Exam Extremities exam: Positive for: normal inspection - Back Exam Back exam: NORMAL INSPECTION - Neurological Exam Neurological exam: Alert, CN II-XII Intact, Normal Gait, Oriented x3, Reflexes Normal - Psychiatric Exam Psychiatric exam: Normal Affect, Normal Mood - Skin Skin Exam: Dry, Intact, Normal Color, Warm Results - Vital Signs Recent Vital Signs: Last Vital Signs Temp 98.6 F 03/06/17 15:00 Pulse 78 03/06/17 15:00 Resp 20 03/06/17 15:00 BP 115/78 03/06/17 15:00 Pulse Ox 96 03/06/17 15:00 - Labs Result Diagrams: 03/06/17 07:40 03/06/17 07:40 Assessment & Plan - Assessment and Plan (Free Text) Assessment: Vidal Cabrera a 46M w/ hx of HIV, HTN who presented to the ED with complaints of Abd pain. Pt states that the onset has been for 2 days. He states that the pain is intermittent. Grades the pain as an 8 out of 10. Location is diffuse but mainly in the lower quad B/L. Denies any radiation. He cannot recall any aggravating factors, but states that lying supine alleviates some of his pain. He state that he has not had a BM in 1 week. He was given lactulose and enema in the ER without relief or sig output. Denies any recent weightloss. Denies any BRBPR, melena, hematachezia or hematemesis. Pt is noncompliant on his HIV meds and coumdin. His last Tcell (helper) count was in the 20's. Plan: This pt is a 46M w/ hx of HIV, DVT, who presents to the Ed with complaints of abd pain. Based on clinical presentation and CT abd, pt had retained stool in colon likely 2/2 constipation. Etiology for his Abd pain is likely 2/2 constipation 1. Abd pain likely 22/ constipation 2. HIV, non complaint on meds 3. Leukopenic and thrombocytopenic etiology unknown, may be 2/2 HIV or meds Plan: -continue lactulose - add senna and Miralax - liquid diet for now - continue enema - Miralax daily after today - if symptoms persist as outpt, recommend GI follow-up as per gi - will call hem/onc w/u for leukopenia and thrombocytopenia
[2017-03-07] MEDS: Mineral Oil Enema 135 ml RC SCH ×3 (06:09→21:27)
[2017-03-07 07:19] LABS: BASO % 1.2 % (0.0-2.0); EOS # 0.1 K/uL (0.0-0.7); EOS % 10.4 % (0.0-4.0); HEMATOCRIT 31.2 % (35.0-51.0); LYMPH # 0.6 K/uL (1.0-4.3); LYMPH % 39.4 % (20.0-40.0); MEAN CELL VOLUME 85.4 fL (80.0-94.0); MEAN CORPUSCULAR HEMOGLOBIN 28.5 pg (27.0-31.0); MEAN CORPUSCULAR HGB CONC 33.3 g/dL (33.0-37.0); MONO # 0.2 K/uL (0.0-0.8); MONO % 12.2 % (0.0-10.0); NRBC % 0.2 % (0.0-2.0); RED CELL DISTRIBUTION WIDTH 16.7 % (11.5-14.5)
[2017-03-07 07:30] LABS: WHITE BLOOD COUNT 1.4 K/uL (4.8-10.8)
[2017-03-07 07:59] LABS: ALKALINE PHOSPHATASE 78 U/L (38-126); ALT/SGPT 27 U/L (21-72); AST/SGOT 25 U/L (17-59); BILIRUBIN,DIRECT 0.4 mg/dL (0.0-0.4); BILIRUBIN,TOTAL 0.4 mg/dL (0.2-1.3); BLOOD UREA NITROGEN 13 mg/dL (9-20); CALCIUM 8.2 mg/dl (8.6-10.4); CARBON DIOXIDE 27 mmol/L (22-30); CHLORIDE 100 mmol/L (98-107); GFR AFRICAN-AMERICAN > 60; GLUCOSE,RANDOM 82 mg/dL (75-110); POTASSIUM 4.2 mmol/L (3.6-5.2); SODIUM 139 mmol/L (132-148); TOTAL PROTEIN 6.5 g/dL (6.3-8.3)
[2017-03-07] MEDS: Atovaquone 750 mg/5 ml Susp UD PO SCH (09:26)
[2017-03-07] MEDS: Emtricitabine-Tenofovir 200 mg-300 mg Tab PO SCH (09:26)
[2017-03-07] MEDS: Enoxaparin 60 mg Syringe SC SCH ×2 (09:26→21:28)
[2017-03-07] MEDS: POLYETHYLENE GLYCOL 3350 17 GM/Dose PACKET PO SCH ×2 (09:27→17:46)
[2017-03-07] MEDS: Clotrimazole 1% Cream 15 GM TUBE TOP SCH ×2 (09:28→17:47)
--- NOTE | 2017-03-07 13:16 | CP.PCM.CON ---
History of Present Illness - History of Present Illness History of Present Illness: General Surgery- Dr. Best 46M w/ hx of HIV, HTN presented to the ED with complaints of Abd pain. Pt states that the onset has been for 2 days. He states that the pain is intermittent. Grades the pain as an 8 out of 10. Location is diffuse but mainly in the lower quad. lying supine releives pain.Pt Stated he had not had a BM in 6 days. however pt is passing flatus. He was given lactulose and enema in the ER without relief or sig output. During encounter pt just had mineral enema with no effect. Denies any recent weightloss. Denies any BRBPR, melena, hematachezia or hematemesis. Pt is noncompliant on his HIV meds and coumdin. His last Tcell (helper) count was in the 20's. PMH: Anemia, Anxiety, Asthma, Bipolar Disorder, COPD, Depression, Deep Vein Thrombosis, Gall Bladder Disease, HIV, Pneumonia, Seizures Surgical History: Cholecystectomy Family History: States: No Known Family Hx Review of Systems - Review of Systems All systems: reviewed and no additional remarkable complaints except Past Patient History - Infectious Disease Hx of Infectious Diseases: None - Tetanus Immunizations Tetanus Immunization: Unknown - Past Medical History & Family History Past Medical History?: Yes - Past Social History Smoking Status: Heavy Smoker > 10 Cigarettes Daily - CARDIAC Hx Cardiac Disorders: No - PULMONARY Hx Asthma: Yes Hx Chronic Obstructive Pulmonary Disease (COPD): Yes Hx Pneumonia: Yes - NEUROLOGICAL Hx Seizures: Yes - HEENT Hx HEENT Problems: No - RENAL Hx Chronic Kidney Disease: No - ENDOCRINE/METABOLIC Hx Endocrine Disorders: No - HEMATOLOGICAL/ONCOLOGICAL Hx Anemia: Yes Hx Human Immunodeficiency Virus (HIV): Yes - INTEGUMENTARY Hx Dermatological Problems: Yes Hx Fernandez: Yes (chronic right lowet extremity) - MUSCULOSKELETAL/RHEUMATOLOGICAL Hx Falls: No - GASTROINTESTINAL Hx Gall Bladder Disease: Yes - GENITOURINARY/GYNECOLOGICAL Hx Genitourinary Disorders: No - PSYCHIATRIC Hx Anxiety: Yes Hx Bipolar Disorder: Yes Hx Depression: Yes Hx Substance Use: No - SURGICAL HISTORY Hx Cholecystectomy: Yes (december) - ANESTHESIA Hx Anesthesia: Yes Hx Anesthesia Reactions: Yes (DIFFICULT TO AROUSE) Hx Malignant Hyperthermia: No Meds Allergies/Adverse Reactions: Allergies Allergy/AdvReac Type Severity Reaction Status Date / Time cefaclor [From Ceclor] Allergy Severe URTICARIA Verified 03/05/17 10:40 piperacillin sodium Allergy Severe Verified 03/05/17 10:40 [From Zosyn] sulfamethoxazole Allergy Severe FEVER Verified 03/05/17 10:40 [From Bactrim] tazobactam sodium Allergy Severe Verified 03/05/17 10:40 [From Zosyn] trimethoprim [From Bactrim] Allergy Severe FEVER Verified 03/05/17 10:40 capsaicin Allergy Uncoded 03/05/17 10:43 - Medications Medications: Current Medications Acetaminophen (Tylenol 325mg Tab) 650 mg PO TID PRN PRN Reason: Pain, moderate (4-7) Last Admin: 03/07/17 05:47 Dose: 650 mg Albuterol (Ventolin Hfa 90 Mcg/Actuation (8 G)) 1 puff IH RQ6 PRN PRN Reason: Shortness of Breath Amlodipine Besylate (Norvasc) 5 mg PO DAILY [facility] Last Admin: 03/07/17 09:26 Dose: 5 mg Atovaquone (Mepron) 750 mg PO DAILY [facility] Last Admin: 03/07/17 09:26 Dose: 750 mg Clotrimazole (Lotrimin 1%) 0 gm TOP BID [facility] Last Admin: 03/07/17 09:28 Dose: 1 applic Dolutegravir Sodium (Tivicay) 50 mg PO DAILY [facility] Last Admin: 03/07/17 09:26 Dose: 50 mg Emtricitabine/Tenofovir (Truvada 200 Mg-300 Mg) 1 tab PO DAILY [facility] Last Admin: 03/07/17 09:26 Dose: 1 tab Enoxaparin Sodium (Lovenox) 60 mg SC Q12 [facility] Last Admin: 03/07/17 09:26 Dose: 60 mg Gabapentin (Neurontin) 600 mg PO TID [facility] Last Admin: 03/07/17 09:26 Dose: 600 mg Tigecycline 50 mg/ Sodium (Chloride) 100 mls @ 100 mls/hr IVPB Q12H [facility] Levetiracetam (Keppra) 500 mg PO DAILY [facility] Last Admin: 03/07/17 09:26 Dose: 500 mg Mineral Oil (Fleet Mineral Oil Enema) 135 ml RC Q8H [facility] Last Admin: 03/07/17 06:09 Dose: Not Given Polyethylene Glycol (Miralax) 17 gm PO BID [facility] Last Admin: 03/07/17 09:27 Dose: 17 gm Quetiapine Fumarate (Seroquel) 100 mg PO HS [facility] Last Admin: 03/06/17 21:44 Dose: 100 mg Sennosides (Senokot Tab) 8.6 mg PO DAILY [facility] Last Admin: 03/07/17 09:26 Dose: 8.6 mg Tiotropium [place] (Spiriva) 18 mcg INH RQ24 [facility] Warfarin Sodium (Coumadin) 5 mg PO 1800 [facility] Last Admin: 03/06/17 17:36 Dose: 5 mg Physical Exam - Constitutional Appears: Well, No Acute Distress - Head Exam Head Exam: ATRAUMATIC - Eye Exam Eye Exam: EOMI - Respiratory Exam Respiratory Exam: NORMAL BREATHING PATTERN. absent: Accessory Muscle Use, Rhonchi, Wheezes - Cardiovascular Exam Cardiovascular Exam: +S1, +S2 - GI/Abdominal Exam GI & Abdominal Exam: Distended, Normal Bowel Sounds, Soft, Tenderness. absent: Firm, Guarding Additional comments: tender to deep palpation LLQ and LUQ Results - Vital Signs Recent Vital Signs: Last Vital Signs Temp 98.0 F 03/07/17 08:31 Pulse 63 03/07/17 08:31 Resp 20 03/07/17 08:31 BP 122/82 03/07/17 08:31 Pulse Ox 98 03/07/17 08:31 - Labs Result Diagrams: 03/07/17 06:32 03/07/17 06:32 Labs: Laboratory Results - last 24 hr 03/07/17 03/07/17 06:32 06:32 WBC 1.4 L* RBC 3.65 L Hgb 10.4 L Hct 31.2 L MCV 85.4 MCH 28.5 MCHC 33.3 RDW 16.7 H Plt Count 106 L MPV 9.0 Neut % (Auto) 36.8 L Lymph % (Auto) 39.4 [place] % (Auto) 12.2 H Eos % (Auto) 10.4 H Baso % (Auto) 1.2 Neut # 0.5 L Lymph # 0.6 L [place] # 0.2 Eos # 0.1 Baso # 0.0 Sodium 139 Potassium 4.2 Chloride 100 Carbon Dioxide 27 Anion Gap 15 BUN 13 Creatinine 0.9 Est GFR ( Amer) > 60 Est GFR (Non-Af Amer) > 60 Random Glucose 82 Calcium 8.2 L Total Bilirubin 0.4 Direct Bilirubin 0.4 AST 25 ALT 27 Alkaline Phosphatase 78 Total Protein 6.5 Albumin 3.3 L Globulin 3.2 Albumin/Globulin Ratio 1.0 Assessment & Plan - Assessment and Plan (Free Text) Assessment: 46M w/ abdominal pain and constipation Plan: - c/w medical management - GI recs for bowel Regiment - Golytely - futher recs per Dr. Estephania Guerrero PGY1 - Date & Time Date: 03/06/17 Time: 17:30
--- NOTE | 2017-03-07 13:30 | CP.PCM.PN ---
Subjective - Date & Time of Evaluation Date of Evaluation: 03/07/17 Time of Evaluation: 10:15 - Subjective Subjective: General Surgery- Dr. Best Pt S&E at bedside this AM. No acute events overnight. Had multiple BM after the Golytely. Pt states pain is manageable. Denies N/V CP/SOB F/C Objective - Vital Signs/Intake and Output Vital Signs (last 24 hours): Temp Pulse Resp BP Pulse Ox 98.0 F 63 20 122/82 98 03/07/17 08:31 03/07/17 08:31 03/07/17 08:31 03/07/17 08:31 03/07/17 08:31 Intake and Output: 03/07/17 03/07/17 06:59 18:59 Intake Total 500 Output Total 600 Balance -100 - Medications Medications: Current Medications Acetaminophen (Tylenol 325mg Tab) 650 mg PO TID PRN PRN Reason: Pain, moderate (4-7) Last Admin: 03/07/17 05:47 Dose: 650 mg Albuterol (Ventolin Hfa 90 Mcg/Actuation (8 G)) 1 puff IH RQ6 PRN PRN Reason: Shortness of Breath Amlodipine Besylate (Norvasc) 5 mg PO DAILY [facility] Last Admin: 03/07/17 09:26 Dose: 5 mg Atovaquone (Mepron) 750 mg PO DAILY [facility] Last Admin: 03/07/17 09:26 Dose: 750 mg Clotrimazole (Lotrimin 1%) 0 gm TOP BID [facility] Last Admin: 03/07/17 09:28 Dose: 1 applic Dolutegravir Sodium (Tivicay) 50 mg PO DAILY [facility] Last Admin: 03/07/17 09:26 Dose: 50 mg Emtricitabine/Tenofovir (Truvada 200 Mg-300 Mg) 1 tab PO DAILY [facility] Last Admin: 03/07/17 09:26 Dose: 1 tab Enoxaparin Sodium (Lovenox) 60 mg SC Q12 [facility] Last Admin: 03/07/17 09:26 Dose: 60 mg Gabapentin (Neurontin) 600 mg PO TID [facility] Last Admin: 03/07/17 09:26 Dose: 600 mg Tigecycline 50 mg/ Sodium (Chloride) 100 mls @ 100 mls/hr IVPB Q12H [facility] Levetiracetam (Keppra) 500 mg PO DAILY [facility] Last Admin: 03/07/17 09:26 Dose: 500 mg Mineral Oil (Fleet Mineral Oil Enema) 135 ml RC Q8H [facility] Last Admin: 03/07/17 06:09 Dose: Not Given Polyethylene Glycol (Miralax) 17 gm PO BID [facility] Last Admin: 03/07/17 09:27 Dose: 17 gm Quetiapine Fumarate (Seroquel) 100 mg PO HS [facility] Last Admin: 03/06/17 21:44 Dose: 100 mg Sennosides (Senokot Tab) 8.6 mg PO DAILY [facility] Last Admin: 03/07/17 09:26 Dose: 8.6 mg Tiotropium [place] (Spiriva) 18 mcg INH RQ24 [facility] Warfarin Sodium (Coumadin) 5 mg PO 1800 [facility] Last Admin: 03/06/17 17:36 Dose: 5 mg - Labs Labs: 03/07/17 06:32 03/07/17 06:32 PT 11.5 SECONDS (9.7-12.2) 03/06/17 10:45 INR 1.0 03/06/17 10:45 APTT 42 SECONDS (21-34) H D 03/06/17 10:45 - Constitutional Appears: No Acute Distress - ENT Exam ENT Exam: Mucous Membranes Moist - Respiratory Exam Respiratory Exam: NORMAL BREATHING PATTERN. absent: Accessory Muscle Use, Rhonchi, Wheezes - Cardiovascular Exam Cardiovascular Exam: +S1, +S2 - GI/Abdominal Exam GI & Abdominal Exam: Distended, Soft, Tenderness, Hyperactive Bowel Sounds. absent: Bruit, Firm, Guarding, Rigid Additional comments: less tender and less distended than yesterday. - Neurological Exam Neurological Exam: Alert, Awake, Oriented x3 - Skin Skin Exam: Normal Color Assessment and Plan - Assessment and Plan (Free Text) Assessment: 46M abd pain & constipation Plan: - Pt had a BM - No acute surgical intervention at this time - further recs per Dr. Estephania Guerrero PGY1
--- NOTE | 2017-03-07 19:58 | CP.PCM.PN ---
Subjective - Date & Time of Evaluation Date of Evaluation: 03/07/17 Time of Evaluation: 19:57 - Subjective Subjective: afebrile, States still has some crampy abdominal pain. States had bowel movements after GoLYTELY. Less bloating. Surgery follow-up noted. Objective - Vital Signs/Intake and Output Vital Signs (last 24 hours): Temp Pulse Resp BP Pulse Ox 97.3 F L 74 20 127/78 99 03/07/17 15:00 03/07/17 15:00 03/07/17 15:00 03/07/17 15:00 03/07/17 15:00 Intake and Output: 03/07/17 03/08/17 18:59 06:59 Intake Total 700 Balance 700 - Medications Medications: Current Medications Acetaminophen (Tylenol 325mg Tab) 650 mg PO TID PRN PRN Reason: Pain, moderate (4-7) Last Admin: 03/07/17 05:47 Dose: 650 mg Albuterol (Ventolin Hfa 90 Mcg/Actuation (8 G)) 1 puff IH RQ6 PRN PRN Reason: Shortness of Breath Amlodipine Besylate (Norvasc) 5 mg PO DAILY [facility] Last Admin: 03/07/17 09:26 Dose: 5 mg Atovaquone (Mepron) 750 mg PO DAILY [facility] Last Admin: 03/07/17 09:26 Dose: 750 mg Clotrimazole (Lotrimin 1%) 0 gm TOP BID [facility] Last Admin: 03/07/17 17:47 Dose: 1 applic Dolutegravir Sodium (Tivicay) 50 mg PO DAILY [facility] Last Admin: 03/07/17 09:26 Dose: 50 mg Emtricitabine/Tenofovir (Truvada 200 Mg-300 Mg) 1 tab PO DAILY [facility] Last Admin: 03/07/17 09:26 Dose: 1 tab Enoxaparin Sodium (Lovenox) 60 mg SC Q12 [facility] Last Admin: 03/07/17 09:26 Dose: 60 mg Gabapentin (Neurontin) 600 mg PO TID [facility] Last Admin: 03/07/17 17:46 Dose: 600 mg Tigecycline 50 mg/ Sodium (Chloride) 100 mls @ 100 mls/hr IVPB Q12H [facility] Levetiracetam (Keppra) 500 mg PO DAILY [facility] Last Admin: 03/07/17 09:26 Dose: 500 mg Mineral Oil (Fleet Mineral Oil Enema) 135 ml RC Q8H [facility] Last Admin: 03/07/17 13:54 Dose: 135 ml Polyethylene Glycol (Miralax) 17 gm PO BID [facility] Last Admin: 03/07/17 17:46 Dose: 17 gm Quetiapine Fumarate (Seroquel) 100 mg PO HS [facility] Last Admin: 03/06/17 21:44 Dose: 100 mg Sennosides (Senokot Tab) 8.6 mg PO DAILY [facility] Last Admin: 03/07/17 09:26 Dose: 8.6 mg Tiotropium [place] (Spiriva) 18 mcg INH RQ24 [facility] Warfarin Sodium (Coumadin) 5 mg PO 1800 [facility] Last Admin: 03/07/17 17:46 Dose: 5 mg - Labs Labs: 03/07/17 06:32 03/07/17 06:32 PT 10.9 SECONDS (9.7-12.2) 03/07/17 16:44 INR 1.0 03/07/17 16:44 APTT 42 SECONDS (21-34) H D 03/06/17 10:45 - Constitutional Appears: No Acute Distress - Head Exam Head Exam: NORMAL INSPECTION - Eye Exam Eye Exam: EOMI, PERRL - ENT Exam ENT Exam: Normal Oropharynx - Neck Exam Neck Exam: Normal Inspection - Respiratory Exam Respiratory Exam: Clear to Ausculation Bilateral - Cardiovascular Exam Cardiovascular Exam: REGULAR RHYTHM, +S1, +S2 - GI/Abdominal Exam GI & Abdominal Exam: Soft, Tenderness (mild generalized tenderness on palpation. ), Normal Bowel Sounds. absent: Guarding - Extremities Exam Extremities Exam: Pedal Edema (right lower extremity stasis dermatitis changes and increased pigmentation.). absent: Calf Tenderness - Neurological Exam Neurological Exam: Awake, CN II-XII Intact, Normal Gait, Oriented x3 - Psychiatric Exam Psychiatric exam: Normal Mood - Skin Skin Exam: Normal Color, Warm Assessment and Plan (1) Abdominal pain Status: Acute (2) Neutropenia associated with acquired immune deficiency syndrome (AIDS) Status: Acute (3) Constipation Assessment & Plan: PATIENT'S CONSTIPATION RESOLVED WITH GOLYTLY. Status: Acute (4) Anemia Status: Acute (5) Deep venous thrombosis of lower extremity Status: Acute (6) AIDS (acquired immune deficiency syndrome) Assessment & Plan: PATIENT cd4 COUNT-30. CD4/CD8 RATIOS 0.10 pATIENT ON HAART THERAPY F/U VL AND GENOTYPING. pATIENT VERY NONCOMPLIANT WITH HIS MEDICATIONS REPORTED BY HIM. pATIENT ENCOURAGED TO BE COMPLIANT. Status: Chronic (7) Stasis dermatitis Assessment & Plan: CONTINUE LOCAL CLOBETASOL OINTMENT LOCALLY. Status: Acute - Assessment and Plan (Free Text) Plan: PLAN patient has leukopenia neutropenia with white count of 1.4 Hemoglobin 10.4/hematocrit 31.2 Platelets 106. Consider Neupogen subcutaneous leukopenia persists and falls. consider hematology oncology consult as discussed with staff. patient on IV Tygacil 100 mg loading dose followed by 50 mg every 12 hourly for possible cellulitis right lower extremity and chronic deep ulcerations with scabs noted bilateral lower extremities. 03/06/17
[2017-03-08] MEDS ORDERED: Mineral Oil Enema 135 ml RC SCH (03:30)
[2017-03-08 07:55] LABS: HEMATOCRIT 32.9 % (35.0-51.0); LYMPH # 1.1 K/uL (1.0-4.3); NRBC % 0.1 % (0.0-2.0)
[2017-03-08 08:04] LABS: BASO % 0.3 % (0.0-2.0); EOS # 0.3 K/uL (0.0-0.7); EOS % 2.6 % (0.0-4.0); LYMPH % 11.2 % (20.0-40.0); MEAN CELL VOLUME 85.8 fL (80.0-94.0); MEAN CORPUSCULAR HEMOGLOBIN 29.1 pg (27.0-31.0); MEAN PLATELET VOLUME 8.9 fL (7.2-11.7); MONO # 0.4 K/uL (0.0-0.8); MONO % 4.2 % (0.0-10.0); RED CELL DISTRIBUTION WIDTH 16.4 % (11.5-14.5); WHITE BLOOD COUNT 9.9 K/uL (4.8-10.8)
[2017-03-08 08:10] LABS: CHLORIDE 104 mmol/L (98-107)
[2017-03-08 08:11] LABS: POTASSIUM 4.5 mmol/L (3.6-5.2); SODIUM 140 mmol/L (132-148)
--- NOTE | 2017-03-08 08:12 | CP.PCM.PN ---
Objective - Vital Signs/Intake and Output Vital Signs (last 24 hours): Temp Pulse Resp BP Pulse Ox 97.7 F 66 20 118/80 97 03/08/17 01:00 03/08/17 01:00 03/08/17 01:00 03/08/17 01:00 03/08/17 01:00 - Medications Medications: Current Medications Acetaminophen (Tylenol 325mg Tab) 650 mg PO TID PRN PRN Reason: Pain, moderate (4-7) Last Admin: 03/07/17 05:47 Dose: 650 mg Albuterol (Ventolin Hfa 90 Mcg/Actuation (8 G)) 1 puff IH RQ6 PRN PRN Reason: Shortness of Breath Amlodipine Besylate (Norvasc) 5 mg PO DAILY [facility] Last Admin: 03/07/17 09:26 Dose: 5 mg Atovaquone (Mepron) 750 mg PO DAILY [facility] Last Admin: 03/07/17 09:26 Dose: 750 mg Clotrimazole (Lotrimin 1%) 0 gm TOP BID [facility] Last Admin: 03/07/17 17:47 Dose: 1 applic Dolutegravir Sodium (Tivicay) 50 mg PO DAILY [facility] Last Admin: 03/07/17 09:26 Dose: 50 mg Emtricitabine/Tenofovir (Truvada 200 Mg-300 Mg) 1 tab PO DAILY [facility] Last Admin: 03/07/17 09:26 Dose: 1 tab Enoxaparin Sodium (Lovenox) 60 mg SC Q12 [facility] Last Admin: 03/07/17 21:28 Dose: 60 mg Gabapentin (Neurontin) 600 mg PO TID [facility] Last Admin: 03/07/17 17:46 Dose: 600 mg Tigecycline 50 mg/ Sodium (Chloride) 100 mls @ 100 mls/hr IVPB Q12H [facility] Last Admin: 03/07/17 20:11 Dose: 100 mls/hr Levetiracetam (Keppra) 500 mg PO DAILY [facility] Last Admin: 03/07/17 09:26 Dose: 500 mg Mineral Oil (Fleet Mineral Oil Enema) 135 ml RC Q8H [facility] Nystatin (Nystatin Oral Susp) 5 ml PO QID [facility] Polyethylene Glycol (Miralax) 17 gm PO BID [facility] Last Admin: 03/07/17 17:46 Dose: 17 gm Quetiapine Fumarate (Seroquel) 100 mg PO HS [facility] Last Admin: 03/07/17 21:28 Dose: 100 mg Sennosides (Senokot Tab) 8.6 mg PO DAILY [facility] Last Admin: 03/07/17 09:26 Dose: 8.6 mg Tiotropium [place] (Spiriva) 18 mcg INH RQ24 [facility] Warfarin Sodium (Coumadin) 5 mg PO 1800 [facility] Last Admin: 03/07/17 17:46 Dose: 5 mg - Labs Labs: 03/08/17 07:45 03/07/17 06:32 PT 10.9 SECONDS (9.7-12.2) 03/07/17 16:44 INR 1.0 03/07/17 16:44 APTT 42 SECONDS (21-34) H D 03/06/17 10:45 Assessment and Plan - Assessment and Plan (Free Text) Plan: Jaylin Hess Dr., DO, PGY-1
[2017-03-08 08:13] LABS: GFR AFRICAN-AMERICAN > 60
[2017-03-08 08:14] LABS: BLOOD UREA NITROGEN 19 mg/dL (9-20); CALCIUM 8.8 mg/dl (8.6-10.4); CARBON DIOXIDE 28 mmol/L (22-30); GLUCOSE,RANDOM 80 mg/dL (75-110)
--- NOTE | 2017-03-08 09:21 | CP.PCM.PN ---
Subjective - Date & Time of Evaluation Date of Evaluation: 03/08/17 Time of Evaluation: 07:10 - Subjective Subjective: General Surgery Note Patient was seen and examined at beside in no acute distress. Patient reports that his symptoms are improving with very mild diffuse abdominal discomfort. Patient states that he has had multiple bowel movements with the Go-lytely. Patient denies nausea, vomiting, fever, chills. Patient has been tolerating liquid diet and would like to try regular diet. Patient has no new complaints. Objective - Vital Signs/Intake and Output Vital Signs (last 24 hours): Temp Pulse Resp BP Pulse Ox 98.4 F 60 20 113/77 96 03/08/17 08:36 03/08/17 08:36 03/08/17 08:36 03/08/17 08:36 03/08/17 08:36 - Medications Medications: Current Medications Acetaminophen (Tylenol 325mg Tab) 650 mg PO TID PRN PRN Reason: Pain, moderate (4-7) Last Admin: 03/07/17 05:47 Dose: 650 mg Albuterol (Ventolin Hfa 90 Mcg/Actuation (8 G)) 1 puff IH RQ6 PRN PRN Reason: Shortness of Breath Amlodipine Besylate (Norvasc) 5 mg PO DAILY [facility] Last Admin: 03/07/17 09:26 Dose: 5 mg Atovaquone (Mepron) 750 mg PO DAILY [facility] Last Admin: 03/07/17 09:26 Dose: 750 mg Clotrimazole (Lotrimin 1%) 0 gm TOP BID [facility] Last Admin: 03/07/17 17:47 Dose: 1 applic Dolutegravir Sodium (Tivicay) 50 mg PO DAILY [facility] Last Admin: 03/07/17 09:26 Dose: 50 mg Emtricitabine/Tenofovir (Truvada 200 Mg-300 Mg) 1 tab PO DAILY [facility] Last Admin: 03/07/17 09:26 Dose: 1 tab Enoxaparin Sodium (Lovenox) 60 mg SC Q12 [facility] Last Admin: 03/07/17 21:28 Dose: 60 mg Gabapentin (Neurontin) 600 mg PO TID [facility] Last Admin: 03/07/17 17:46 Dose: 600 mg Tigecycline 50 mg/ Sodium (Chloride) 100 mls @ 100 mls/hr IVPB Q12H [facility] Last Admin: 03/07/17 20:11 Dose: 100 mls/hr Levetiracetam (Keppra) 500 mg PO DAILY [facility] Last Admin: 03/07/17 09:26 Dose: 500 mg Metoclopramide HCl (Reglan) 10 mg PO ACHS [facility] Mineral Oil (Fleet Mineral Oil Enema) 135 ml RC Q8H [facility] Nystatin (Nystatin Oral Susp) 5 ml PO QID [facility] Polyethylene Glycol (Miralax) 17 gm PO BID [facility] Last Admin: 03/07/17 17:46 Dose: 17 gm Quetiapine Fumarate (Seroquel) 100 mg PO HS [facility] Last Admin: 03/07/17 21:28 Dose: 100 mg Sennosides (Senokot Tab) 8.6 mg PO DAILY [facility] Last Admin: 03/07/17 09:26 Dose: 8.6 mg Tiotropium [place] (Spiriva) 18 mcg INH RQ24 [facility] Warfarin Sodium (Coumadin) 5 mg PO 1800 [facility] Last Admin: 03/07/17 17:46 Dose: 5 mg - Labs Labs: 03/08/17 07:45 03/08/17 07:45 PT 10.9 SECONDS (9.7-12.2) 03/07/17 16:44 INR 1.0 03/07/17 16:44 APTT 42 SECONDS (21-34) H D 03/06/17 10:45 - Constitutional Appears: Well, No Acute Distress - Head Exam Head Exam: ATRAUMATIC, NORMAL INSPECTION - Eye Exam Eye Exam: EOMI, Normal appearance - ENT Exam ENT Exam: Mucous Membranes Moist, Normal Exam - Respiratory Exam Respiratory Exam: Clear to Ausculation Bilateral, NORMAL BREATHING PATTERN - Cardiovascular Exam Cardiovascular Exam: REGULAR RHYTHM, +S1, +S2 - GI/Abdominal Exam GI & Abdominal Exam: Soft, Normal Bowel Sounds. absent: Distended, Firm, Guarding, Rigid, Rebound Additional comments: Mild diffuse abdominal discomfort on palpation - Extremities Exam Extremities Exam: Full ROM. absent: Calf Tenderness, Tenderness - Neurological Exam Neurological Exam: Alert, Awake, Oriented x3 - Psychiatric Exam Psychiatric exam: Normal Affect, Normal Mood - Skin Skin Exam: Dry, Normal Color, Warm Assessment and Plan - Assessment and Plan (Free Text) Assessment: 46 year old male with abdominal pain and constipation Plan: -Continue to monitor for bowel function -Continue bowel regimen -Advanced to regular diet, monitor tolerability - No acute surgical intervention at this time - Further recommendation per Dr. Estephania Guan, PGY-1
--- NOTE | 2017-03-08 09:32 | CP.PCM.PN ---
<Phyllis Mosqueda - Last Filed: 03/08/17 16:13> Subjective - Date & Time of Evaluation Date of Evaluation: 03/08/17 Time of Evaluation: 01:00 - Subjective Subjective: Medicine Note for Dr. Arvin Puentes CC: " abdominal pain" HPI: 46 year old male with PMH of HIV/AIDS, DVT in right leg with IVC filter, Asthma, COPD, BPH, abdominal hernia, seizures, bipolar disorder, and anxiety presents with diffuse abdominal pain for the past 1.5 weeks. He reports 5/10 constant abdominal pain. He tried taking OTC meds like milk of magnesia, enemas , oils all of which did not alleviate his symptoms. He notes that Gabapentin has helped decrease his pain. He states that he had a small, liquidy bowel movement this morning and continues to pass flatus. He reports at least 3 episodes of urinary incontinence due to his BPH. He also notes burning sensation in bilateral lower extremities, chronic in nature. He states that his appetite is good. He denies fever, chills, vision or hearing changes, sore throat, chest pain, palpitations, SOB, cough, N/V/D. PMH: HIV/AIDS, DVT in right leg with IVC filter, Asthma, COPD, BPH, seizures, bipolar disorder, anxiety, and abdominal hernia PSH: Cholescystectomy - November 2013, IVC filter Jun 2004, Rhinoplasty - 1989, Neuroplasty at [facility] - 1993 Meds: PER SEP Allergies: Bactrim - drug fever, Zosyn - Neutropenia, Capascin - Redness Social: smokes 27 pack year, drinks EtOH socially, social cocaine use in past, lives alone, currently unemployed. FHx: Mother - DM; Father - prostate Ca; Brother - testicular Ca, BPH; Grandmother - Breast Ca; Sister - Breast Ca PMD: Dr. Fredis Pa @ [facility] Objective - Vital Signs/Intake and Output Vital Signs (last 24 hours): Temp Pulse Resp BP Pulse Ox 98.4 F 60 20 113/77 96 03/08/17 08:36 03/08/17 08:36 03/08/17 08:36 03/08/17 08:36 03/08/17 08:36 - Medications Medications: Current Medications Acetaminophen (Tylenol 325mg Tab) 650 mg PO TID PRN PRN Reason: Pain, moderate (4-7) Last Admin: 03/07/17 05:47 Dose: 650 mg Albuterol (Ventolin Hfa 90 Mcg/Actuation (8 G)) 1 puff IH RQ6 PRN PRN Reason: Shortness of Breath Amlodipine Besylate (Norvasc) 5 mg PO DAILY [facility] Last Admin: 03/07/17 09:26 Dose: 5 mg Atovaquone (Mepron) 750 mg PO DAILY [facility] Last Admin: 03/07/17 09:26 Dose: 750 mg Clotrimazole (Lotrimin 1%) 0 gm TOP BID [facility] Last Admin: 03/07/17 17:47 Dose: 1 applic Dolutegravir Sodium (Tivicay) 50 mg PO DAILY [facility] Last Admin: 03/07/17 09:26 Dose: 50 mg Emtricitabine/Tenofovir (Truvada 200 Mg-300 Mg) 1 tab PO DAILY [facility] Last Admin: 03/07/17 09:26 Dose: 1 tab Enoxaparin Sodium (Lovenox) 60 mg SC Q12 [facility] Last Admin: 03/07/17 21:28 Dose: 60 mg Gabapentin (Neurontin) 600 mg PO TID [facility] Last Admin: 03/07/17 17:46 Dose: 600 mg Tigecycline 50 mg/ Sodium (Chloride) 100 mls @ 100 mls/hr IVPB Q12H [facility] Last Admin: 03/07/17 20:11 Dose: 100 mls/hr Levetiracetam (Keppra) 500 mg PO DAILY [facility] Last Admin: 03/07/17 09:26 Dose: 500 mg Metoclopramide HCl (Reglan) 10 mg PO ACHS [facility] Mineral Oil (Fleet Mineral Oil Enema) 135 ml RC Q8H [facility] Nystatin (Nystatin Oral Susp) 5 ml PO QID [facility] Polyethylene Glycol (Miralax) 17 gm PO BID [facility] Last Admin: 03/07/17 17:46 Dose: 17 gm Quetiapine Fumarate (Seroquel) 100 mg PO HS [facility] Last Admin: 03/07/17 21:28 Dose: 100 mg Sennosides (Senokot Tab) 8.6 mg PO DAILY [facility] Last Admin: 03/07/17 09:26 Dose: 8.6 mg Tiotropium [place] (Spiriva) 18 mcg INH RQ24 [facility] Warfarin Sodium (Coumadin) 5 mg PO 1800 [facility] Last Admin: 03/07/17 17:46 Dose: 5 mg - Labs Labs: 03/08/17 07:45 03/08/17 07:45 PT 10.9 SECONDS (9.7-12.2) 03/07/17 16:44 INR 1.0 03/07/17 16:44 APTT 42 SECONDS (21-34) H D 03/06/17 10:45 - Constitutional Appears: No Acute Distress - Head Exam Head Exam: NORMAL INSPECTION, NORMOCEPHALIC - ENT Exam Additional comments: Stomatosis on right side of mouth. Right deviated nasal septum. No pharyngitis, no thrush. No lymphadenopathy, no thyromegaly. - Respiratory Exam Respiratory Exam: Clear to Ausculation Bilateral, NORMAL BREATHING PATTERN. absent: Wheezes - Cardiovascular Exam Cardiovascular Exam: REGULAR RHYTHM, RRR - GI/Abdominal Exam GI & Abdominal Exam: Distended, Soft, Tenderness, Hernia, Normal Bowel Sounds Additional comments: central obesity, TTP in all 4 quadrants, no guarding, no rebound tenderness, RLQ lipoma, Mid-Right quadrant abdominal hernia with no signs of incarceration. - Extremities Exam Extremities Exam: Normal Inspection, Pedal Edema, Tenderness Additional comments: Right leg edema with signs of chronic venous insufficiency; reddish brown in color that lessens with leg elevation. Varicose veins present in bilateral lower extremities. Dorsalis Pedis pulses present and symmetric bilaterally. Right medial upper calf eschar ulcer 1 x 0.6 cm, Right medial lower calf stage 1 ulcer 1 x 0.3 cm, Right lateral calf eschar ulcer 0.5 x 0.5cm. Onchyomycosis in bilateral toes. - Neurological Exam Neurological Exam: Alert, Awake, Oriented x3 - Skin Skin Exam: Abrasion, Dry, Intact, Warm Assessment and Plan - Assessment and Plan (Free Text) Plan: Constipation * Was given lactulose & enema in ED w/o benefit * GI was consulted- Dr. Gama - recommended lactulose, senokot, and miralax daily * Started on Florastor, given 2 hours prior to ABX TX * Resolved - with Golytley and mineral oil HIV/ AIDS * CD4/CD8 = 0.10 * CD4 Count = 30 * ID consulted - Dr. Lopez - help appreciated * Started on: TIVICAY, TRUVADA Bipolar Disorder * Seroquel 100mg PO QHS Pancytopenia * Heme/ Onc consulted - Dr. Garcia- help appreciated * Mepron 750mg PO daily * Nystatin 5ml PO QID CAT * Most likely secondary to AIDS R leg Chronic Venous Stasis * Possibly Cellulitis, unlikely. Right leg is not warm, some pitting edema secondary to DVT. The erythema resolves when leg is raised and held. * ID consulted - Dr. Lopez - help appreciated * Clotrimazole TOP BID * Tygacil 50mg IV Q12H Right Leg, DVT * INR - 1.0 * Will continue on Loveno 60mg SC Q12H - will DC once patient is therapeutic. * Coumadin 7.5mg PO QHS tonight Hx of Asthma/ COPD * Albuterol PRN * Spiriva 18mcg INH Q24H HTN * Norvasc 5mg PO daily Neuropathy * Gabapentin 600mg PO TID Seizure * Keppra 500mg PO daily Prophylactic Measures * DVT PPX: VTE c/i due to thrombocytopenia, SCDs c/i due to DVT * Regular diet * Dietary consulted- coumadin diet education, refrain from leafy vegetables DW Jaylin Tejeda DO, PGY-1 <Chemo Puentes - Last Filed: 03/09/17 20:39> Objective - Vital Signs/Intake and Output Vital Signs (last 24 hours): Temp Pulse Resp BP Pulse Ox 98.4 F 76 20 131/69 97 03/09/17 15:00 03/09/17 15:00 03/09/17 15:00 03/09/17 15:00 03/09/17 15:00 - Medications Medications: Current Medications Acetaminophen (Tylenol 325mg Tab) 650 mg PO TID PRN PRN Reason: Pain, moderate (4-7) Last Admin: 03/08/17 21:46 Dose: 650 mg Albuterol (Ventolin Hfa 90 Mcg/Actuation (8 G)) 1 puff IH RQ6 PRN PRN Reason: Shortness of Breath Last Admin: 03/09/17 14:00 Dose: 1 puff Amlodipine Besylate (Norvasc) 5 mg PO DAILY [facility] Last Admin: 03/09/17 10:10 Dose: 5 mg Atovaquone (Mepron) 750 mg PO DAILY [facility] Last Admin: 03/09/17 10:10 Dose: 750 mg Clotrimazole (Lotrimin 1%) 0 gm TOP BID [facility] Last Admin: 03/09/17 18:09 Dose: 1 applic Dolutegravir Sodium (Tivicay) 50 mg PO DAILY [facility] Last Admin: 03/09/17 10:11 Dose: 50 mg Emtricitabine/Tenofovir (Truvada 200 Mg-300 Mg) 1 tab PO DAILY [facility] Last Admin: 03/09/17 10:11 Dose: 1 tab Enoxaparin Sodium (Lovenox) 60 mg SC Q12 [facility] Last Admin: 03/09/17 10:11 Dose: 60 mg Gabapentin (Neurontin) 600 mg PO TID [facility] Last Admin: 03/09/17 18:09 Dose: 600 mg Lactulose (Enulose) 20 gm PO HS [facility] Last Admin: 03/08/17 21:49 Dose: 20 gm Levetiracetam (Keppra) 500 mg PO DAILY [facility] Last Admin: 03/09/17 10:10 Dose: 500 mg Metoclopramide HCl (Reglan) 10 mg PO ACHS [facility] Last Admin: 03/09/17 16:31 Dose: 10 mg Nystatin (Nystatin Oral Susp) 5 ml PO QID [facility] Last Admin: 03/09/17 18:09 Dose: 5 ml Polyethylene Glycol (Miralax) 17 gm PO BID [facility] Last Admin: 03/09/17 18:09 Dose: 17 gm Quetiapine Fumarate (Seroquel) 100 mg PO HS [facility] Last Admin: 03/08/17 21:46 Dose: 100 mg Saccharomyces [place]oulardii (Florastor) 250 mg PO DAILY [facility] Last Admin: 03/09/17 10:32 Dose: 250 mg Sennosides (Senokot Tab) 8.6 mg PO DAILY [facility] Last Admin: 03/09/17 10:32 Dose: 8.6 mg Tiotropium [place] (Spiriva) 18 mcg INH RQ24 [facility] - Labs Labs: 03/09/17 06:08 03/09/17 06:08 PT 12.2 SECONDS (9.7-12.2) 03/09/17 06:08 INR 1.1 03/09/17 06:08 APTT 42 SECONDS (21-34) H D 03/06/17 10:45 Attending/Attestation - Attestation I have personally seen and examined this patient.: Yes I have fully participated in the care of the patient.: Yes I have reviewed all pertinent clinical information, including history, physical exam and plan: Yes Notes (Text): 03/09/17 20:37 Patient was seen and examined with the resident on 03/08/17 History, Physical, Assessment and Plan were thoroughly gone over with the Resident. Chemo Puentes D.O.
[2017-03-08] MEDS: Atovaquone 750 mg/5 ml Susp UD PO SCH (09:49)
[2017-03-08] MEDS: Emtricitabine-Tenofovir 200 mg-300 mg Tab PO SCH (09:49)
[2017-03-08] MEDS: POLYETHYLENE GLYCOL 3350 17 GM/Dose PACKET PO SCH ×2 (09:50→18:12)
[2017-03-08] MEDS: Enoxaparin 60 mg Syringe SC SCH ×2 (09:50→21:50)
[2017-03-08] MEDS: Nystatin 100,000 Units/ml Oral Susp 5 ml UD PO SCH ×4 (09:53→21:49)
[2017-03-08] MEDS: Clotrimazole 1% Cream 15 GM TUBE TOP SCH ×2 (09:54→18:13)
--- NOTE | 2017-03-08 11:35 | CP.PCM.PCO ---
Physician Communication Note - Physician Communication Note Physician Communication Note: Please above
--- NOTE | 2017-03-08 14:26 | CP.PCM.CON ---
<Mike Akhtar - Last Filed: 03/08/17 14:17> History of Present Illness - History of Present Illness History of Present Illness: PGY3 on heme/onc Dr Garcia service: 46M PMHx AIDS, bipolar, DVT s/p IVC filter presented with constipation and cellulitis. Hematology was consulted for pancytopenia. Patient said he does not follow medication schedule as directed. Patient said his abdominal pain improved after drinking Golytely and had some BM. No other complaints at the moment. Past medical history: AIDS, recurrent venous clotting Past surgical history: IVC filter placement Family history: Denies hematologic and oncologic problems Social history: 1/2 ppd x 20 years, denies alcohol, snorts/smokes cocain monthly Allergies: Multiple, see list Review of systems: All remaining review of systems including HEENT, cardiovascular, respiratory, gastrointestinal, genitourinary, musculoskeletal, dermatologic, neurologic, and psychiatric are negative unless mentioned in the HPI. Review of Systems - Constitutional Constitutional: absent: Anorexia, Weakness - EENT Eyes: absent: Loss of Vision - Cardiovascular Cardiovascular: absent: Chest Pain, Dyspnea - Respiratory Respiratory: absent: Cough, Hemoptysis - Gastrointestinal Gastrointestinal: Abdominal Pain, Constipation. absent: Nausea, Vomiting - Genitourinary Genitourinary: absent: Dysuria - Musculoskeletal Musculoskeletal: absent: Tingling - Integumentary Integumentary: absent: Change in Hair - Endocrine Endocrine: absent: Polyuria Past Patient History - Infectious Disease Hx of Infectious Diseases: None - Tetanus Immunizations Tetanus Immunization: Unknown - Past Medical History & Family History Past Medical History?: Yes - Past Social History Smoking Status: Heavy Smoker > 10 Cigarettes Daily - CARDIAC Hx Cardiac Disorders: No - PULMONARY Hx Asthma: Yes Hx Chronic Obstructive Pulmonary Disease (COPD): Yes Hx Pneumonia: Yes - NEUROLOGICAL Hx Seizures: Yes - HEENT Hx HEENT Problems: No - RENAL Hx Chronic Kidney Disease: No - ENDOCRINE/METABOLIC Hx Endocrine Disorders: No - HEMATOLOGICAL/ONCOLOGICAL Hx Anemia: Yes Hx Human Immunodeficiency Virus (HIV): Yes - INTEGUMENTARY Hx Dermatological Problems: Yes Hx Fernandez: Yes (chronic right lowet extremity) - MUSCULOSKELETAL/RHEUMATOLOGICAL Hx Falls: No - GASTROINTESTINAL Hx Gall Bladder Disease: Yes - GENITOURINARY/GYNECOLOGICAL Hx Genitourinary Disorders: No - PSYCHIATRIC Hx Anxiety: Yes Hx Bipolar Disorder: Yes Hx Depression: Yes Hx Substance Use: No - SURGICAL HISTORY Hx Cholecystectomy: Yes (december) - ANESTHESIA Hx Anesthesia: Yes Hx Anesthesia Reactions: Yes (DIFFICULT TO AROUSE) Hx Malignant Hyperthermia: No Meds Allergies/Adverse Reactions: Allergies Allergy/AdvReac Type Severity Reaction Status Date / Time cefaclor [From Ceclor] Allergy Severe URTICARIA Verified 03/05/17 10:40 piperacillin sodium Allergy Severe Verified 03/05/17 10:40 [From Zosyn] sulfamethoxazole Allergy Severe FEVER Verified 03/05/17 10:40 [From Bactrim] tazobactam sodium Allergy Severe Verified 03/05/17 10:40 [From Zosyn] trimethoprim [From Bactrim] Allergy Severe FEVER Verified 03/05/17 10:40 capsaicin Allergy Uncoded 03/05/17 10:43 - Medications Medications: Current Medications Acetaminophen (Tylenol 325mg Tab) 650 mg PO TID PRN PRN Reason: Pain, moderate (4-7) Last Admin: 03/07/17 05:47 Dose: 650 mg Albuterol (Ventolin Hfa 90 Mcg/Actuation (8 G)) 1 puff IH RQ6 PRN PRN Reason: Shortness of Breath Amlodipine Besylate (Norvasc) 5 mg PO DAILY [facility] Last Admin: 03/08/17 09:48 Dose: 5 mg Atovaquone (Mepron) 750 mg PO DAILY [facility] Last Admin: 03/08/17 09:49 Dose: 750 mg Clotrimazole (Lotrimin 1%) 0 gm TOP BID [facility] Last Admin: 03/08/17 09:54 Dose: 1 applic Dolutegravir Sodium (Tivicay) 50 mg PO DAILY [facility] Last Admin: 03/08/17 09:49 Dose: 50 mg Emtricitabine/Tenofovir (Truvada 200 Mg-300 Mg) 1 tab PO DAILY [facility] Last Admin: 03/08/17 09:49 Dose: 1 tab Enoxaparin Sodium (Lovenox) 60 mg SC Q12 [facility] Last Admin: 03/08/17 09:50 Dose: 60 mg Gabapentin (Neurontin) 600 mg PO TID [facility] Last Admin: 03/08/17 09:48 Dose: 600 mg Tigecycline 50 mg/ Sodium (Chloride) 100 mls @ 100 mls/hr IVPB Q12H [facility] Last Admin: 03/08/17 09:00 Dose: 100 mls/hr Levetiracetam (Keppra) 500 mg PO DAILY [facility] Last Admin: 03/08/17 09:48 Dose: 500 mg Metoclopramide HCl (Reglan) 10 mg PO ACHS [facility] Last Admin: 03/08/17 11:34 Dose: 10 mg Nystatin (Nystatin Oral Susp) 5 ml PO QID [facility] Last Admin: 03/08/17 09:53 Dose: 5 ml Polyethylene Glycol (Miralax) 17 gm PO BID [facility] Last Admin: 03/08/17 09:50 Dose: 17 gm Quetiapine Fumarate (Seroquel) 100 mg PO HS [facility] Last Admin: 03/07/17 21:28 Dose: 100 mg Sennosides (Senokot Tab) 8.6 mg PO DAILY [facility] Last Admin: 03/08/17 09:53 Dose: 8.6 mg Tiotropium [place] (Spiriva) 18 mcg INH RQ24 [facility] Warfarin Sodium (Coumadin) 5 mg PO 1800 [facility] Last Admin: 03/07/17 17:46 Dose: 5 mg Physical Exam - Constitutional Appears: Non-toxic, No Acute Distress - Head Exam Head Exam: NORMOCEPHALIC - Eye Exam Eye Exam: Normal appearance Pupil Exam: NORMAL ACCOMODATION - Respiratory Exam Respiratory Exam: Clear to Auscultation Bilateral, NORMAL BREATHING PATTERN - Cardiovascular Exam Cardiovascular Exam: REGULAR RHYTHM, +S1, +S2. absent: Gallop, Rubs - GI/Abdominal Exam GI & Abdominal Exam: Normal Bowel Sounds, Soft, Tenderness (mild) - Neurological Exam Neurological exam: Alert, Oriented x3 - Skin Skin Exam: Dry, Intact Results - Vital Signs Recent Vital Signs: Last Vital Signs Temp 98.4 F 03/08/17 08:36 Pulse 60 03/08/17 08:36 Resp 20 03/08/17 08:36 BP 113/77 03/08/17 08:36 Pulse Ox 96 03/08/17 08:36 - Labs Result Diagrams: 03/08/17 07:45 03/08/17 07:45 Labs: Laboratory Results - last 24 hr 03/07/17 03/08/17 03/08/17 16:44 07:45 07:45 WBC 9.9 D RBC 3.84 L Hgb 11.2 L Hct 32.9 L MCV 85.8 MCH 29.1 MCHC 34.0 RDW 16.4 H Plt Count 115 L MPV 8.9 Neut % (Auto) 81.7 H Lymph % (Auto) 11.2 L Leslie % (Auto) 4.2 Eos % (Auto) 2.6 Baso % (Auto) 0.3 Neut # 8.1 H Lymph # 1.1 Leslie # 0.4 Eos # 0.3 Baso # 0.0 PT 10.9 INR 1.0 Sodium 140 Potassium 4.5 Chloride 104 Carbon Dioxide 28 Anion Gap 12 BUN 19 Creatinine 0.9 Est GFR ( Amer) > 60 Est GFR (Non-Af Amer) > 60 Random Glucose 80 Calcium 8.8 Assessment & Plan - Assessment and Plan (Free Text) Assessment: Leukopenia Pancytopenia likely secondary to AIDS. Improved, s/p Neupogen per ID. AIDS management as per ID. DVT Currently on Lovenox 60mg SC q12H. Recommend target INR 2-3 when patient to be discharged. Thrombocytopenia Pancytopenia likely secondary to AIDS. Mild, no intervention at this time. Anemia Pancytopenia likely secondary to AIDS. Mild, no intervention at this time. Cellulitis Management as per ID and primary team. <Antonino Garcia - Last Filed: 03/09/17 19:38> Meds - Medications Medications: Current Medications Acetaminophen (Tylenol 325mg Tab) 650 mg PO TID PRN PRN Reason: Pain, moderate (4-7) Last Admin: 03/08/17 21:46 Dose: 650 mg Albuterol (Ventolin Hfa 90 Mcg/Actuation (8 G)) 1 puff IH RQ6 PRN PRN Reason: Shortness of Breath Last Admin: 03/09/17 14:00 Dose: 1 puff Amlodipine Besylate (Norvasc) 5 mg PO DAILY [facility] Last Admin: 03/09/17 10:10 Dose: 5 mg Atovaquone (Mepron) 750 mg PO DAILY [facility] Last Admin: 03/09/17 10:10 Dose: 750 mg Clotrimazole (Lotrimin 1%) 0 gm TOP BID [facility] Last Admin: 03/09/17 18:09 Dose: 1 applic Dolutegravir Sodium (Tivicay) 50 mg PO DAILY [facility] Last Admin: 03/09/17 10:11 Dose: 50 mg Emtricitabine/Tenofovir (Truvada 200 Mg-300 Mg) 1 tab PO DAILY [facility] Last Admin: 03/09/17 10:11 Dose: 1 tab Enoxaparin Sodium (Lovenox) 60 mg SC Q12 [facility] Last Admin: 03/09/17 10:11 Dose: 60 mg Gabapentin (Neurontin) 600 mg PO TID [facility] Last Admin: 03/09/17 18:09 Dose: 600 mg Lactulose (Enulose) 20 gm PO HS [facility] Last Admin: 03/08/17 21:49 Dose: 20 gm Levetiracetam (Keppra) 500 mg PO DAILY [facility] Last Admin: 03/09/17 10:10 Dose: 500 mg Metoclopramide HCl (Reglan) 10 mg PO ACHS [facility] Last Admin: 03/09/17 16:31 Dose: 10 mg Nystatin (Nystatin Oral Susp) 5 ml PO QID [facility] Last Admin: 03/09/17 18:09 Dose: 5 ml Polyethylene Glycol (Miralax) 17 gm PO BID [facility] Last Admin: 03/09/17 18:09 Dose: 17 gm Quetiapine Fumarate (Seroquel) 100 mg PO HS [facility] Last Admin: 03/08/17 21:46 Dose: 100 mg Saccharomyces Boulardii (Florastor) 250 mg PO DAILY [facility] Last Admin: 03/09/17 10:32 Dose: 250 mg Sennosides (Senokot Tab) 8.6 mg PO DAILY [facility] Last Admin: 03/09/17 10:32 Dose: 8.6 mg Tiotropium [place] (Spiriva) 18 mcg INH RQ24 [facility] Results - Vital Signs Recent Vital Signs: Last Vital Signs Temp 98.4 F 03/09/17 15:00 Pulse 76 03/09/17 15:00 Resp 20 03/09/17 15:00 BP 131/69 03/09/17 15:00 Pulse Ox 97 03/09/17 15:00 - Labs Result Diagrams: 03/09/17 06:08 03/09/17 06:08 Labs: Laboratory Results - last 24 hr 03/09/17 03/09/17 03/09/17 06:08 06:08 06:08 WBC 20.3 H D RBC 3.80 L Hgb 11.1 L Hct 33.1 L MCV 87.3 MCH 29.2 MCHC 33.5 RDW 16.8 H Plt Count 132 MPV 8.4 Neut % (Auto) 87.0 H Lymph % (Auto) 7.5 L Leslie % (Auto) 3.0 Eos % (Auto) 2.2 Baso % (Auto) 0.3 Neut # 17.7 H Lymph # 1.5 Leslie # 0.6 Eos # 0.4 Baso # 0.1 Neutrophils % (Manual) 78 H Band Neutrophils % 11 H* Lymphocytes % (Manual) 6 L Monocytes % (Manual) 2 Eosinophils % (Manual) 3 Toxic Granulation Present Platelet Estimate Normal Large Platelets Present Polychromasia Slight Hypochromasia (manual) Slight Poikilocytosis (manual Slight Anisocytosis (manual) Slight Ovalocytes Slight PT 12.2 INR 1.1 Sodium 139 Potassium 4.4 Chloride 104 Carbon Dioxide 27 Anion Gap 13 BUN 17 Creatinine 1.0 Est GFR ( Amer) > 60 Est GFR (Non-Af Amer) > 60 Random Glucose 79 Calcium 9.6 Phosphorus 3.8 Magnesium 1.7 Total Bilirubin 0.4 AST 29 ALT 33 Alkaline Phosphatase 99 Total Protein 6.8 Albumin 3.6 Globulin 3.3 Albumin/Globulin Ratio 1.1 Assessment & Plan - Assessment and Plan (Free Text) Assessment: Pt seen and examined, agree with residents note with addition. 46 year old male with a history of recurrent venous clotting on lifelong anticoagulation, HIV on HAART, chronic pancytopenia with neutropenia. The patient has not had a bone marrow evaluation for his pancytopenia per his preference but may have pancytopenia related to HIV, anemia of HIV. His is s/p 1 dose of Neupogen with improvement in his ANC. INR is suptherapeutic on coumadin; agree with lovenox 1mg/kg BID and increasing dose of coumadin for goal INR 2-3. Thank you for this interesting consult.
[2017-03-09 06:15] LABS: BASO # 0.1 K/uL (0.0-0.2); BASO % 0.3 % (0.0-2.0); EOS # 0.4 K/uL (0.0-0.7); EOS % 2.2 % (0.0-4.0); HEMATOCRIT 33.1 % (35.0-51.0); LYMPH # 1.5 K/uL (1.0-4.3); LYMPH % 7.5 % (20.0-40.0); MEAN CELL VOLUME 87.3 fL (80.0-94.0); MEAN CORPUSCULAR HEMOGLOBIN 29.2 pg (27.0-31.0); MEAN CORPUSCULAR HGB CONC 33.5 g/dL (33.0-37.0); MEAN PLATELET VOLUME 8.4 fL (7.2-11.7); MONO # 0.6 K/uL (0.0-0.8); PLATELET COUNT 132 K/uL (130-400); RED CELL DISTRIBUTION WIDTH 16.8 % (11.5-14.5); WHITE BLOOD COUNT 20.3 K/uL (4.8-10.8)
[2017-03-09 06:20] LABS: INR 1.1
[2017-03-09 06:28] LABS: CHLORIDE 104 mmol/L (98-107)
[2017-03-09 06:29] LABS: POTASSIUM 4.4 mmol/L (3.6-5.2); SODIUM 139 mmol/L (132-148)
[2017-03-09 06:31] LABS: ALB/GLOB RATIO 1.1 (1.0-2.1); ALKALINE PHOSPHATASE 99 U/L (38-126); AST/SGOT 29 U/L (17-59); BILIRUBIN,TOTAL 0.4 mg/dL (0.2-1.3); BLOOD UREA NITROGEN 17 mg/dL (9-20); CARBON DIOXIDE 27 mmol/L (22-30); GFR AFRICAN-AMERICAN > 60; GLUCOSE,RANDOM 79 mg/dL (75-110); TOTAL PROTEIN 6.8 g/dL (6.3-8.3)
[2017-03-09 06:32] LABS: ALT/SGPT 33 U/L (21-72); CALCIUM 9.6 mg/dl (8.6-10.4); MAGNESIUM 1.7 mg/dL (1.6-2.3); PHOSPHOROUS 3.8 mg/dL (2.5-4.5)
--- NOTE | 2017-03-09 07:57 | CP.PCM.PN ---
Addendum entered and electronically signed by Phyllis Mosqueda DO 03/09/17 16:16 : RESOLVED LEUKOPENIA not NEUTROPENIA. Original Note: <Phyllis Mosqueda - Last Filed: 03/09/17 16:14> Subjective - Date & Time of Evaluation Date of Evaluation: 03/09/17 Time of Evaluation: 07:00 - Subjective Subjective: Medicine Note for Dr. Arvin Puentes Patient was seen and examined at bedside. Patient reports he feels well. Continues to have small bowel movements. Denied fever, chills, headache, chest pain, abdominal pain, n/v, or urinary symptoms. Objective - Vital Signs/Intake and Output Vital Signs (last 24 hours): Temp Pulse Resp BP Pulse Ox 98.6 F 77 20 108/69 98 03/09/17 00:00 03/09/17 00:00 03/09/17 00:00 03/09/17 00:00 03/09/17 00:00 - Medications Medications: Current Medications Acetaminophen (Tylenol 325mg Tab) 650 mg PO TID PRN PRN Reason: Pain, moderate (4-7) Last Admin: 03/08/17 21:46 Dose: 650 mg Albuterol (Ventolin Hfa 90 Mcg/Actuation (8 G)) 1 puff IH RQ6 PRN PRN Reason: Shortness of Breath Amlodipine Besylate (Norvasc) 5 mg PO DAILY [facility] Last Admin: 03/08/17 09:48 Dose: 5 mg Atovaquone (Mepron) 750 mg PO DAILY [facility] Last Admin: 03/08/17 09:49 Dose: 750 mg Clotrimazole (Lotrimin 1%) 0 gm TOP BID [facility] Last Admin: 03/08/17 18:13 Dose: 1 applic Dolutegravir Sodium (Tivicay) 50 mg PO DAILY [facility] Last Admin: 03/08/17 09:49 Dose: 50 mg Emtricitabine/Tenofovir (Truvada 200 Mg-300 Mg) 1 tab PO DAILY [facility] Last Admin: 03/08/17 09:49 Dose: 1 tab Enoxaparin Sodium (Lovenox) 60 mg SC Q12 [facility] Last Admin: 03/08/17 21:50 Dose: 60 mg Gabapentin (Neurontin) 600 mg PO TID [facility] Last Admin: 03/08/17 18:12 Dose: 600 mg Tigecycline 50 mg/ Sodium (Chloride) 100 mls @ 100 mls/hr IVPB Q12H [facility] Last Admin: 03/08/17 21:00 Dose: 100 mls/hr Lactulose (Enulose) 20 gm PO HS [facility] Last Admin: 03/08/17 21:49 Dose: 20 gm Levetiracetam (Keppra) 500 mg PO DAILY [facility] Last Admin: 03/08/17 09:48 Dose: 500 mg Metoclopramide HCl (Reglan) 10 mg PO ACHS [facility] Last Admin: 03/08/17 21:46 Dose: 10 mg Nystatin (Nystatin Oral Susp) 5 ml PO QID [facility] Last Admin: 03/08/17 21:49 Dose: 5 ml Polyethylene Glycol (Miralax) 17 gm PO BID [facility] Last Admin: 03/08/17 18:12 Dose: 17 gm Quetiapine Fumarate (Seroquel) 100 mg PO HS [facility] Last Admin: 03/08/17 21:46 Dose: 100 mg Saccharomyces Boulardii (Florastor) 250 mg PO DAILY [facility] Sennosides (Senokot Tab) 8.6 mg PO DAILY [facility] Last Admin: 03/08/17 09:53 Dose: 8.6 mg Tiotropium [place] (Spiriva) 18 mcg INH RQ24 [facility] - Labs Labs: 03/09/17 06:08 03/09/17 06:08 PT 12.2 SECONDS (9.7-12.2) 03/09/17 06:08 INR 1.1 03/09/17 06:08 APTT 42 SECONDS (21-34) H D 03/06/17 10:45 - Constitutional Appears: No Acute Distress - Head Exam Head Exam: NORMAL INSPECTION, NORMOCEPHALIC - Eye Exam Eye Exam: EOMI, Normal appearance, PERRL Pupil Exam: NORMAL ACCOMODATION - ENT Exam ENT Exam: Mucous Membranes Dry Additional comments: Stomatosis on right side of mouth. Right deviated nasal septum. No pharyngitis, no thrush. No lymphadenopathy, no thyromegaly. - Respiratory Exam Respiratory Exam: Clear to Ausculation Bilateral, NORMAL BREATHING PATTERN. absent: Decreased Breath Sounds, Wheezes - Cardiovascular Exam Cardiovascular Exam: REGULAR RHYTHM, RRR, +S1, +S2 - GI/Abdominal Exam GI & Abdominal Exam: Distended, Soft, Tenderness, Hernia, Normal Bowel Sounds - Extremities Exam Extremities Exam: Pedal Edema, Tenderness Additional comments: Right leg edema with signs of chronic venous insufficiency; reddish brown in color that lessens with leg elevation. Varicose veins present in bilateral lower extremities. Dorsalis Pedis pulses present and symmetric bilaterally. Right medial upper calf eschar ulcer 1 x 0.6 cm, Right medial lower calf stage 1 ulcer 1 x 0.3 cm, Right lateral calf eschar ulcer 0.5 x 0.5cm. Onchyomycosis in bilateral toes. - Neurological Exam Neurological Exam: Alert, Awake, Oriented x3 - Skin Skin Exam: Abrasion, Erythema, Warm Assessment and Plan - Assessment and Plan (Free Text) Plan: Pancytopenia * Heme/ Onc consulted - Dr. Garcia- papi appreciated * S/P Neupogen per ID- now has leukocytosis and bandemia secondary to medication * Nystatin 5ml PO QID [facility] * Most likely secondary to AIDS Right Leg, DVT * INR - 1.1 * Will continue on Lovenox 60mg SC Q12H - will DC once patient is therapeutic. * Will administer another dose of Coumadin 7.5mg PO QHS tonight R leg Chronic Venous Stasis * Possibly Cellulitis, unlikely. Right leg is not warm, some pitting edema secondary to DVT. The erythema resolves when leg is raised and held. After speaking with Dr. Lopez, she agrees with this assessment and now that the patient is no longer neutropenic, we can DC the Tygacil. * ID consulted - Dr. Lopez - papi appreciated * Clotrimazole TOP BID HIV/ AIDS * CD4/CD8 = 0.10 * CD4 Count = 30 * ID consulted - Dr. Lopez - papi appreciated * Started on: TIVICAY, TRUVADA, Mepron 750mg PO daily Constipation * RESOLVED * Was given lactulose & enema in ED w/o benefit * GI was consulted- Dr. Gama - recommended lactulose, senokot, and miralax daily * Started on Florastor, given 2 hours prior to ABX TX * Resolved - with Golytley and mineral oil Bipolar Disorder * Seroquel 100mg PO QHS Hx of Asthma/ COPD * Albuterol PRN * Spiriva 18mcg INH Q24H HTN * Norvasc 5mg PO daily Neuropathy * Gabapentin 600mg PO TID Seizure * Keppra 500mg PO daily Prophylactic Measures * DVT PPX: VTE c/i due to thrombocytopenia, SCDs c/i due to DVT * Regular diet * Dietary consulted- coumadin diet education, refrain from leafy vegetables DW Dr. Ollie Puentes, Jaylin HUBBARD, PGY-1 <Chemo Puentes - Last Filed: 03/09/17 20:44> Objective - Vital Signs/Intake and Output Vital Signs (last 24 hours): Temp Pulse Resp BP Pulse Ox 98.4 F 76 20 131/69 97 03/09/17 15:00 03/09/17 15:00 03/09/17 15:00 03/09/17 15:00 03/09/17 15:00 - Medications Medications: Current Medications Acetaminophen (Tylenol 325mg Tab) 650 mg PO TID PRN PRN Reason: Pain, moderate (4-7) Last Admin: 03/08/17 21:46 Dose: 650 mg Albuterol (Ventolin Hfa 90 Mcg/Actuation (8 G)) 1 puff IH RQ6 PRN PRN Reason: Shortness of Breath Last Admin: 03/09/17 14:00 Dose: 1 puff Amlodipine Besylate (Norvasc) 5 mg PO DAILY [facility] Last Admin: 03/09/17 10:10 Dose: 5 mg Atovaquone (Mepron) 750 mg PO DAILY [facility] Last Admin: 03/09/17 10:10 Dose: 750 mg Clotrimazole (Lotrimin 1%) 0 gm TOP BID [facility] Last Admin: 03/09/17 18:09 Dose: 1 applic Dolutegravir Sodium (Tivicay) 50 mg PO DAILY [facility] Last Admin: 03/09/17 10:11 Dose: 50 mg Emtricitabine/Tenofovir (Truvada 200 Mg-300 Mg) 1 tab PO DAILY [facility] Last Admin: 03/09/17 10:11 Dose: 1 tab Enoxaparin Sodium (Lovenox) 60 mg SC Q12 [facility] Last Admin: 03/09/17 10:11 Dose: 60 mg Gabapentin (Neurontin) 600 mg PO TID [facility] Last Admin: 03/09/17 18:09 Dose: 600 mg Lactulose (Enulose) 20 gm PO HS [facility] Last Admin: 03/08/17 21:49 Dose: 20 gm Levetiracetam (Keppra) 500 mg PO DAILY [facility] Last Admin: 03/09/17 10:10 Dose: 500 mg Metoclopramide HCl (Reglan) 10 mg PO ACHS [facility] Last Admin: 03/09/17 16:31 Dose: 10 mg Nystatin (Nystatin Oral Susp) 5 ml PO QID [facility] Last Admin: 03/09/17 18:09 Dose: 5 ml Polyethylene Glycol (Miralax) 17 gm PO BID [facility] Last Admin: 03/09/17 18:09 Dose: 17 gm Quetiapine Fumarate (Seroquel) 100 mg PO HS [facility] Last Admin: 03/08/17 21:46 Dose: 100 mg Saccharomyces Boulardii (Florastor) 250 mg PO DAILY [facility] Last Admin: 03/09/17 10:32 Dose: 250 mg Sennosides (Senokot Tab) 8.6 mg PO DAILY [facility] Last Admin: 03/09/17 10:32 Dose: 8.6 mg Tiotropium [place] (Spiriva) 18 mcg INH RQ24 [facility] - Labs Labs: 03/09/17 06:08 03/09/17 06:08 PT 12.2 SECONDS (9.7-12.2) 03/09/17 06:08 INR 1.1 03/09/17 06:08 APTT 42 SECONDS (21-34) H D 03/06/17 10:45 Attending/Attestation - Attestation I have personally seen and examined this patient.: Yes I have fully participated in the care of the patient.: Yes I have reviewed all pertinent clinical information, including history, physical exam and plan: Yes Notes (Text): 03/09/17 20:42 Patient was seen and examined at 4:45 PM 03/09/17. Exam, Assessment and Plan were thoroughly gone over with the resident. We will discharge patient once INR approaches 2. Explained to patient the importance of compliance of medication regimen and follow up with his Primary Care Physicians at the [facility]. Chemo Puentes D.O.
[2017-03-09 08:34] LABS: EOSINOPHIL 3 % (0-4); NEUTROPHIL 78 % (50-75); TOTAL CELLS COUNTED 100
[2017-03-09 08:36] LABS: LARGE PLATELETS PRESENT
[2017-03-09] MEDS: Nystatin 100,000 Units/ml Oral Susp 5 ml UD PO SCH ×4 (10:10→21:36)
[2017-03-09] MEDS: POLYETHYLENE GLYCOL 3350 17 GM/Dose PACKET PO SCH ×2 (10:10→18:09)
[2017-03-09] MEDS: Atovaquone 750 mg/5 ml Susp UD PO SCH (10:10)
[2017-03-09] MEDS: Clotrimazole 1% Cream 15 GM TUBE TOP SCH ×2 (10:11→18:09)
[2017-03-09] MEDS: Emtricitabine-Tenofovir 200 mg-300 mg Tab PO SCH (10:11)
[2017-03-09] MEDS: Enoxaparin 60 mg Syringe SC SCH ×2 (10:11→21:36)
[2017-03-09] MEDS: Saccharomyces Boulardi 250 mg Cap PO SCH (10:32)
[2017-03-09] MEDS: Albuterol HFA 90 mcg/actuation (8 g) IH PRN (14:00)
--- NOTE | 2017-03-09 20:55 | CP.PCM.PN ---
Subjective - Date & Time of Evaluation Date of Evaluation: 03/09/17 Time of Evaluation: 20:55 - Subjective Subjective: AFEBRILE, CONTINUES TO FEEL BETTER. CONTINUES TO HAVE SMALL BOWEL MOVEMENTS LEUKOPENIA RESOLVED S/P NEUPOGEN CASE DISCUSSED WITH MEDICAL TEAM. DR REZA PRYOR IV TYGACIL. cONTINUE LOCAL CREAM APPLICATIONS RIGHT LOWER EXTREMITY CONTINUE HAART THERAPY. VL VERY HIGH NOTED INCREASE BY MOUTH TIVICAY 50 MG BY MOUTH TWICE A DAY. cONTINUE DESCOVY 1 TABLET ONCE A DAY DAILY OPD ( PT WAS TAKING IT OPD ) FOLLOW-UP VIRAL LOAD AND LYMPHOCYTE SUBSETS IN 2 MONTHS PATIENT ENCOURAGED TO BE MORE COMPLIANT AND SERIOUS ABOUT HIS ANTIRETROVIRAL THERAPY. PATIENT FOLLOWS HIS HIV CLINIC Objective - Vital Signs/Intake and Output Vital Signs (last 24 hours): Temp Pulse Resp BP Pulse Ox 98.4 F 76 20 131/69 97 03/09/17 15:00 03/09/17 15:00 03/09/17 15:00 03/09/17 15:00 03/09/17 15:00 - Medications Medications: Current Medications Acetaminophen (Tylenol 325mg Tab) 650 mg PO TID PRN PRN Reason: Pain, moderate (4-7) Last Admin: 03/08/17 21:46 Dose: 650 mg Albuterol (Ventolin Hfa 90 Mcg/Actuation (8 G)) 1 puff IH RQ6 PRN PRN Reason: Shortness of Breath Last Admin: 03/09/17 14:00 Dose: 1 puff Amlodipine Besylate (Norvasc) 5 mg PO DAILY [facility] Last Admin: 03/09/17 10:10 Dose: 5 mg Atovaquone (Mepron) 750 mg PO DAILY [facility] Last Admin: 03/09/17 10:10 Dose: 750 mg Clotrimazole (Lotrimin 1%) 0 gm TOP BID [facility] Last Admin: 03/09/17 18:09 Dose: 1 applic Dolutegravir Sodium (Tivicay) 50 mg PO DAILY [facility] Last Admin: 03/09/17 10:11 Dose: 50 mg Emtricitabine/Tenofovir (Truvada 200 Mg-300 Mg) 1 tab PO DAILY [facility] Last Admin: 03/09/17 10:11 Dose: 1 tab Enoxaparin Sodium (Lovenox) 60 mg SC Q12 [facility] Last Admin: 03/09/17 10:11 Dose: 60 mg Gabapentin (Neurontin) 600 mg PO TID [facility] Last Admin: 03/09/17 18:09 Dose: 600 mg Lactulose (Enulose) 20 gm PO HS [facility] Last Admin: 03/08/17 21:49 Dose: 20 gm Levetiracetam (Keppra) 500 mg PO DAILY [facility] Last Admin: 03/09/17 10:10 Dose: 500 mg Metoclopramide HCl (Reglan) 10 mg PO ACHS [facility] Last Admin: 03/09/17 16:31 Dose: 10 mg Nystatin (Nystatin Oral Susp) 5 ml PO QID [facility] Last Admin: 03/09/17 18:09 Dose: 5 ml Polyethylene Glycol (Miralax) 17 gm PO BID [facility] Last Admin: 03/09/17 18:09 Dose: 17 gm Quetiapine Fumarate (Seroquel) 100 mg PO HS [facility] Last Admin: 03/08/17 21:46 Dose: 100 mg Saccharomyces Boulardii (Florastor) 250 mg PO DAILY [facility] Last Admin: 03/09/17 10:32 Dose: 250 mg Sennosides (Senokot Tab) 8.6 mg PO DAILY [facility] Last Admin: 03/09/17 10:32 Dose: 8.6 mg Tiotropium [place] (Spiriva) 18 mcg INH RQ24 [facility] - Labs Labs: 03/09/17 06:08 03/09/17 06:08 PT 12.2 SECONDS (9.7-12.2) 03/09/17 06:08 INR 1.1 03/09/17 06:08 APTT 42 SECONDS (21-34) H D 03/06/17 10:45 - Constitutional Appears: No Acute Distress - Head Exam Head Exam: NORMAL INSPECTION - Eye Exam Eye Exam: EOMI, PERRL - ENT Exam ENT Exam: Normal Oropharynx - Neck Exam Neck Exam: Normal Inspection - Respiratory Exam Respiratory Exam: Clear to Ausculation Bilateral, NORMAL BREATHING PATTERN - Cardiovascular Exam Cardiovascular Exam: REGULAR RHYTHM, +S1, +S2 - GI/Abdominal Exam GI & Abdominal Exam: Soft, Normal Bowel Sounds. absent: Organomegaly - Extremities Exam Extremities Exam: Normal Capillary Refill. absent: Calf Tenderness, Pedal Edema Additional comments: Pedal Edema (right lower extremity stasis dermatitis changes and increased pigmentation.). absent: Calf Tenderness - Neurological Exam Neurological Exam: Alert, Awake, CN II-XII Intact, Normal Gait, Oriented x3 - Psychiatric Exam Psychiatric exam: Normal Mood - Skin Skin Exam: Normal Color, Warm Assessment and Plan (1) Abdominal pain Status: Acute (2) Neutropenia associated with acquired immune deficiency syndrome (AIDS) Status: Acute (3) Constipation Status: Acute (4) Anemia Status: Acute (5) Deep venous thrombosis of lower extremity Status: Acute (6) AIDS (acquired immune deficiency syndrome) Status: Chronic (7) Stasis dermatitis Status: Acute
--- NOTE | 2017-03-10 02:33 | CP.PCM.PN ---
Subjective - Date & Time of Evaluation Date of Evaluation: 03/09/17 Time of Evaluation: 19:00 - Subjective Subjective: Feeling better Objective - Vital Signs/Intake and Output Vital Signs (last 24 hours): Temp Pulse Resp BP Pulse Ox 98.5 F 78 20 111/72 97 03/10/17 00:00 03/10/17 00:00 03/10/17 00:00 03/10/17 00:00 03/10/17 00:00 Intake and Output: 03/09/17 03/10/17 18:59 06:59 Intake Total 300 Balance 300 - Medications Medications: Current Medications Acetaminophen (Tylenol 325mg Tab) 650 mg PO TID PRN PRN Reason: Pain, moderate (4-7) Last Admin: 03/08/17 21:46 Dose: 650 mg Albuterol (Ventolin Hfa 90 Mcg/Actuation (8 G)) 1 puff IH RQ6 PRN PRN Reason: Shortness of Breath Last Admin: 03/09/17 14:00 Dose: 1 puff Amlodipine Besylate (Norvasc) 5 mg PO DAILY [facility] Last Admin: 03/09/17 10:10 Dose: 5 mg Atovaquone (Mepron) 750 mg PO DAILY [facility] Last Admin: 03/09/17 10:10 Dose: 750 mg Clotrimazole (Lotrimin 1%) 0 gm TOP BID [facility] Last Admin: 03/09/17 18:09 Dose: 1 applic Dolutegravir Sodium (Tivicay) 50 mg PO DAILY [facility] Last Admin: 03/09/17 10:11 Dose: 50 mg Emtricitabine/Tenofovir (Truvada 200 Mg-300 Mg) 1 tab PO DAILY [facility] Last Admin: 03/09/17 10:11 Dose: 1 tab Enoxaparin Sodium (Lovenox) 60 mg SC Q12 [facility] Last Admin: 03/09/17 21:36 Dose: 60 mg Gabapentin (Neurontin) 600 mg PO TID [facility] Last Admin: 03/09/17 18:09 Dose: 600 mg Lactulose (Enulose) 20 gm PO HS [facility] Last Admin: 03/09/17 21:36 Dose: 20 gm Levetiracetam (Keppra) 500 mg PO DAILY [facility] Last Admin: 03/09/17 10:10 Dose: 500 mg Metoclopramide HCl (Reglan) 10 mg PO ACHS [facility] Last Admin: 03/09/17 21:36 Dose: 10 mg Nystatin (Nystatin Oral Susp) 5 ml PO QID [facility] Last Admin: 03/09/17 21:36 Dose: 5 ml Polyethylene Glycol (Miralax) 17 gm PO BID [facility] Last Admin: 03/09/17 18:09 Dose: 17 gm Quetiapine Fumarate (Seroquel) 100 mg PO HS [facility] Last Admin: 03/09/17 21:36 Dose: 100 mg Saccharomyces Boulardii (Florastor) 250 mg PO DAILY [facility] Last Admin: 03/09/17 10:32 Dose: 250 mg Sennosides (Senokot Tab) 8.6 mg PO DAILY [facility] Last Admin: 03/09/17 10:32 Dose: 8.6 mg Tiotropium [place] (Spiriva) 18 mcg INH RQ24 [facility] - Labs Labs: 03/09/17 06:08 03/09/17 06:08 PT 12.2 SECONDS (9.7-12.2) 03/09/17 06:08 INR 1.1 03/09/17 06:08 APTT 42 SECONDS (21-34) H D 03/06/17 10:45 - Head Exam Head Exam: ATRAUMATIC - Eye Exam Eye Exam: Normal appearance - ENT Exam ENT Exam: Mucous Membranes Dry - Respiratory Exam Respiratory Exam: NORMAL BREATHING PATTERN - Cardiovascular Exam Cardiovascular Exam: +S1, +S2 - GI/Abdominal Exam GI & Abdominal Exam: Normal Bowel Sounds Assessment and Plan (1) Chronic deep vein thrombosis (DVT) of right lower extremity Assessment & Plan: recurrent venous clotting lifelong anticoagulation Status: Acute (2) Anemia Assessment & Plan: anemia of HIV Status: Acute (3) Thrombocytopenia Assessment & Plan: mild, improved Status: Acute
[2017-03-10] MEDS: Albuterol HFA 90 mcg/actuation (8 g) IH PRN (07:40)
[2017-03-10 08:07] LABS: INR 1.3
[2017-03-10 08:08] LABS: BASO # 0.1 K/uL (0.0-0.2); BASO % 0.6 % (0.0-2.0); EOS # 0.5 K/uL (0.0-0.7); EOS % 3.6 % (0.0-4.0); HEMATOCRIT 33.2 % (35.0-51.0); LYMPH # 1.8 K/uL (1.0-4.3); LYMPH % 13.5 % (20.0-40.0); MEAN CELL VOLUME 86.4 fL (80.0-94.0); MEAN CORPUSCULAR HEMOGLOBIN 29.5 pg (27.0-31.0); MEAN CORPUSCULAR HGB CONC 34.2 g/dL (33.0-37.0); MEAN PLATELET VOLUME 8.5 fL (7.2-11.7); MONO # 0.4 K/uL (0.0-0.8); MONO % 3.2 % (0.0-10.0); NRBC % 0.2 % (0.0-2.0); RED CELL DISTRIBUTION WIDTH 16.4 % (11.5-14.5); WHITE BLOOD COUNT 13.3 K/uL (4.8-10.8)
[2017-03-10 08:19] LABS: CHLORIDE 104 mmol/L (98-107); SODIUM 139 mmol/L (132-148)
[2017-03-10 08:22] LABS: ALKALINE PHOSPHATASE 120 U/L (38-126); ALT/SGPT 36 U/L (21-72); AST/SGOT 33 U/L (17-59); BILIRUBIN,TOTAL 0.4 mg/dL (0.2-1.3); BLOOD UREA NITROGEN 19 mg/dL (9-20); CARBON DIOXIDE 25 mmol/L (22-30); GFR AFRICAN-AMERICAN > 60; GLUCOSE,RANDOM 76 mg/dL (75-110); PHOSPHOROUS 4.1 mg/dL (2.5-4.5); TOTAL PROTEIN 6.9 g/dL (6.3-8.3)
[2017-03-10 08:23] LABS: CALCIUM 9.1 mg/dl (8.6-10.4); MAGNESIUM 1.7 mg/dL (1.6-2.3)
[2017-03-10] MEDS: Tiotropium 18 mcg Cap For Inhalation INH SCH (09:34)
[2017-03-10] MEDS: Atovaquone 750 mg/5 ml Susp UD PO SCH (10:19)
[2017-03-10] MEDS: Emtricitabine-Tenofovir 200 mg-300 mg Tab PO SCH (10:20)
[2017-03-10] MEDS: POLYETHYLENE GLYCOL 3350 17 GM/Dose PACKET PO SCH ×2 (10:21→17:59)
[2017-03-10] MEDS: Enoxaparin 60 mg Syringe SC SCH ×2 (10:21→21:17)
[2017-03-10] MEDS: Saccharomyces Boulardi 250 mg Cap PO SCH (10:21)
[2017-03-10] MEDS: Nystatin 100,000 Units/ml Oral Susp 5 ml UD PO SCH ×4 (10:22→21:18)
--- NOTE | 2017-03-10 10:41 | CP.PCM.PN ---
<Phyllis Mosqueda - Last Filed: 03/10/17 10:37> Subjective - Date & Time of Evaluation Date of Evaluation: 03/10/17 Time of Evaluation: 10:37 - Subjective Subjective: Medicine Note for Dr. Arvin Puentes Patient was seen and examined at bedside. Patient reports he feels well. Continues to have normal bowel movements. Denied fever, chills, headache, chest pain, abdominal pain, n/v, or urinary symptoms. Objective - Vital Signs/Intake and Output Vital Signs (last 24 hours): Temp Pulse Resp BP Pulse Ox 98.5 F 80 20 126/79 98 03/10/17 08:00 03/10/17 08:00 03/10/17 08:00 03/10/17 08:00 03/10/17 08:00 Intake and Output: 03/10/17 03/10/17 06:59 18:59 Intake Total 780 Balance 780 - Medications Medications: Current Medications Acetaminophen (Tylenol 325mg Tab) 650 mg PO TID PRN PRN Reason: Pain, moderate (4-7) Last Admin: 03/08/17 21:46 Dose: 650 mg Albuterol (Ventolin Hfa 90 Mcg/Actuation (8 G)) 1 puff IH RQ6 PRN PRN Reason: Shortness of Breath Last Admin: 03/10/17 07:40 Dose: 1 puff Amlodipine Besylate (Norvasc) 5 mg PO DAILY [facility] Last Admin: 03/10/17 10:22 Dose: 5 mg Atovaquone (Mepron) 750 mg PO DAILY [facility] Last Admin: 03/10/17 10:19 Dose: 750 mg Clotrimazole (Lotrimin 1%) 0 gm TOP BID [facility] Last Admin: 03/09/17 18:09 Dose: 1 applic Dolutegravir Sodium (Tivicay) 50 mg PO DAILY [facility] Last Admin: 03/10/17 10:20 Dose: 50 mg Emtricitabine/Tenofovir (Truvada 200 Mg-300 Mg) 1 tab PO DAILY [facility] Last Admin: 03/10/17 10:20 Dose: 1 tab Enoxaparin Sodium (Lovenox) 60 mg SC Q12 [facility] Last Admin: 03/10/17 10:21 Dose: 60 mg Gabapentin (Neurontin) 600 mg PO TID [facility] Last Admin: 03/10/17 10:22 Dose: 600 mg Lactulose (Enulose) 20 gm PO HS [facility] Last Admin: 03/09/17 21:36 Dose: 20 gm Levetiracetam (Keppra) 500 mg PO DAILY [facility] Last Admin: 03/10/17 10:21 Dose: 500 mg Metoclopramide HCl (Reglan) 10 mg PO ACHS [facility] Last Admin: 03/10/17 06:33 Dose: 10 mg Nystatin (Nystatin Oral Susp) 5 ml PO QID [facility] Last Admin: 03/10/17 10:22 Dose: 5 ml Polyethylene Glycol (Miralax) 17 gm PO BID [facility] Last Admin: 03/10/17 10:21 Dose: 17 gm Quetiapine Fumarate (Seroquel) 100 mg PO HS [facility] Last Admin: 03/09/17 21:36 Dose: 100 mg Saccharomyces Boulardii (Florastor) 250 mg PO DAILY [facility] Last Admin: 03/10/17 10:21 Dose: 250 mg Sennosides (Senokot Tab) 8.6 mg PO DAILY [facility] Last Admin: 03/10/17 10:24 Dose: 8.6 mg Tiotropium [place] (Spiriva) 18 mcg INH RQ24 [facility] Warfarin Sodium (Coumadin) 7.5 mg PO 1800 [facility] Stop: 03/10/17 18:01 - Labs Labs: 03/10/17 07:55 03/10/17 07:55 PT 15.2 SECONDS (9.7-12.2) H 03/10/17 07:55 INR 1.3 03/10/17 07:55 APTT 42 SECONDS (21-34) H D 03/06/17 10:45 - Constitutional Appears: No Acute Distress, Chronically Ill - Head Exam Head Exam: NORMAL INSPECTION, NORMOCEPHALIC - Eye Exam Eye Exam: EOMI, Normal appearance, PERRL Pupil Exam: NORMAL ACCOMODATION - ENT Exam ENT Exam: Mucous Membranes Moist Additional comments: Stomatosis on right side of mouth. Right deviated nasal septum. No pharyngitis, no thrush. No lymphadenopathy, no thyromegaly. - Respiratory Exam Respiratory Exam: Clear to Ausculation Bilateral, NORMAL BREATHING PATTERN. absent: Wheezes - Cardiovascular Exam Cardiovascular Exam: REGULAR RHYTHM - GI/Abdominal Exam GI & Abdominal Exam: Soft, Normal Bowel Sounds. absent: Distended, Tenderness - Extremities Exam Extremities Exam: Normal Inspection, Pedal Edema, Tenderness Additional comments: Right leg edema with signs of chronic venous insufficiency; reddish brown in color that lessens with leg elevation. Varicose veins present in bilateral lower extremities. Dorsalis Pedis pulses present and symmetric bilaterally. Right medial upper calf eschar ulcer 1 x 0.6 cm, Right medial lower calf stage 1 ulcer 1 x 0.3 cm, Right lateral calf eschar ulcer 0.5 x 0.5cm. Onchyomycosis in bilateral toes. - Neurological Exam Neurological Exam: Alert, Awake, Oriented x3 - Psychiatric Exam Psychiatric exam: Normal Affect, Normal Mood - Skin Skin Exam: Dry, Intact, Warm Assessment and Plan - Assessment and Plan (Free Text) Plan: Pancytopenia * Heme/ Onc consulted - Dr. Garcia- help appreciated * S/P Neupogen per ID- now has leukocytosis and bandemia secondary to medication * Nystatin 5ml PO QID CAT * Most likely secondary to AIDS Right Leg, DVT * INR - 1.3 * Will continue on Lovenox 60mg SC Q12H - will DC once patient is therapeutic. * Will administer another dose of Coumadin 7.5mg PO QHS tonight R leg Chronic Venous Stasis * Possibly Cellulitis, unlikely. Right leg is not warm, some pitting edema secondary to DVT. The erythema resolves when leg is raised and held. After speaking with Dr. Lopez, she agrees with this assessment and now that the patient is no longer leukopenic, we can DC the Tygacil. * ID consulted - Dr. Lopez - papi appreciated * Clotrimazole TOP BID HIV/ AIDS * CD4/CD8 = 0.10 * CD4 Count = 30 * ID consulted - Dr. Lopez - papi appreciated * Started on: TIVICAY, TRUVADA, Mepron 750mg PO daily Constipation * RESOLVED * Was given lactulose & enema in ED w/o benefit * GI was consulted- Dr. Gama - recommended lactulose, senokot, and miralax daily * Started on Florastor, given 2 hours prior to ABX TX * Resolved - with Golytley and mineral oil Bipolar Disorder * Seroquel 100mg PO QHS Hx of Asthma/ COPD * Albuterol PRN * Spiriva 18mcg INH Q24H HTN * Norvasc 5mg PO daily Neuropathy * Gabapentin 600mg PO TID Seizure * Keppra 500mg PO daily Prophylactic Measures * DVT PPX: VTE c/i due to thrombocytopenia, SCDs c/i due to DVT * Regular diet * Dietary consulted- coumadin diet education, refrain from leafy vegetables DISPOSITION: Pt will be discharged once his INR is therapeutic. KULWINDER Puentes, Jaylin HUBBARD, PGY-1 <Chemo Puentes - Last Filed: 03/11/17 08:53> Objective - Vital Signs/Intake and Output Vital Signs (last 24 hours): Temp Pulse Resp BP Pulse Ox 98 F 82 20 111/71 99 03/10/17 22:00 03/10/17 22:00 03/10/17 22:00 03/10/17 22:00 03/10/17 22:00 Intake and Output: 03/11/17 03/11/17 06:59 18:59 Intake Total 590 Balance 590 - Medications Medications: Current Medications Acetaminophen (Tylenol 325mg Tab) 650 mg PO TID PRN PRN Reason: Pain, moderate (4-7) Last Admin: 03/08/17 21:46 Dose: 650 mg Albuterol (Ventolin Hfa 90 Mcg/Actuation (8 G)) 1 puff IH RQ6 PRN PRN Reason: Shortness of Breath Last Admin: 03/11/17 08:05 Dose: 1 puff Amlodipine Besylate (Norvasc) 5 mg PO DAILY [facility] Last Admin: 03/10/17 10:22 Dose: 5 mg Atovaquone (Mepron) 750 mg PO DAILY [facility] Last Admin: 03/10/17 10:19 Dose: 750 mg Clotrimazole (Lotrimin 1%) 0 gm TOP BID [facility] Last Admin: 03/10/17 18:01 Dose: 1 applic Dolutegravir Sodium (Tivicay) 50 mg PO DAILY [facility] Last Admin: 03/10/17 10:20 Dose: 50 mg Emtricitabine/Tenofovir (Truvada 200 Mg-300 Mg) 1 tab PO DAILY [facility] Last Admin: 03/10/17 10:20 Dose: 1 tab Enoxaparin Sodium (Lovenox) 60 mg SC Q12 [facility] Last Admin: 03/10/17 21:17 Dose: 60 mg Gabapentin (Neurontin) 600 mg PO TID [facility] Last Admin: 03/10/17 17:09 Dose: 600 mg Lactulose (Enulose) 20 gm PO HS [facility] Last Admin: 03/10/17 21:19 Dose: Not Given Levetiracetam (Keppra) 500 mg PO DAILY [facility] Last Admin: 03/10/17 10:21 Dose: 500 mg Metoclopramide HCl (Reglan) 10 mg PO ACHS [facility] Last Admin: 03/11/17 07:23 Dose: 10 mg Nystatin (Nystatin Oral Susp) 5 ml PO QID [facility] Last Admin: 03/10/17 21:18 Dose: 5 ml Polyethylene Glycol (Miralax) 17 gm PO BID [facility] Last Admin: 03/10/17 17:59 Dose: Not Given Quetiapine Fumarate (Seroquel) 100 mg PO HS [facility] Last Admin: 03/10/17 21:18 Dose: 100 mg Saccharomyces Boulardii (Florastor) 250 mg PO DAILY [facility] Last Admin: 03/10/17 10:21 Dose: 250 mg Sennosides (Senokot Tab) 8.6 mg PO DAILY [facility] Last Admin: 03/10/17 10:24 Dose: 8.6 mg Tiotropium [place] (Spiriva) 18 mcg INH RQ24 [facility] Last Admin: 03/11/17 08:05 Dose: 18 mcg - Labs Labs: 03/11/17 07:12 03/11/17 07:12 PT 19.2 SECONDS (9.7-12.2) H 03/11/17 07:12 INR 1.7 03/11/17 07:12 APTT 42 SECONDS (21-34) H D 03/06/17 10:45 Attending/Attestation - Attestation I have personally seen and examined this patient.: Yes I have fully participated in the care of the patient.: Yes I have reviewed all pertinent clinical information, including history, physical exam and plan: Yes Notes (Text): 03/11/17 08:51 Patient was see and examined at 6:30 PM 03/10/17. Once INR approaches therapeutic level, patient will be discharged and he will need continued follow up with his Primary Care Physicians at [facility] in [place]. Extensive conversation with patient concerning the importance of compliance with his treatment regimen. He expressed understanding. Chemo Puentes D.O.
[2017-03-10] MEDS: Clotrimazole 1% Cream 15 GM TUBE TOP SCH ×2 (13:01→18:01)
[2017-03-11 07:19] LABS: BASO % 0.5 % (0.0-2.0); EOS # 0.5 K/uL (0.0-0.7); EOS % 5.3 % (0.0-4.0); HEMATOCRIT 34.1 % (35.0-51.0); LYMPH # 1.7 K/uL (1.0-4.3); LYMPH % 19.5 % (20.0-40.0); MEAN CELL VOLUME 86.8 fL (80.0-94.0); MEAN CORPUSCULAR HEMOGLOBIN 29.1 pg (27.0-31.0); MEAN CORPUSCULAR HGB CONC 33.5 g/dL (33.0-37.0); MEAN PLATELET VOLUME 8.2 fL (7.2-11.7); MONO # 0.4 K/uL (0.0-0.8); MONO % 4.7 % (0.0-10.0); NRBC % 0.2 % (0.0-2.0); PLATELET COUNT 190 K/uL (130-400); RED CELL DISTRIBUTION WIDTH 16.8 % (11.5-14.5); WHITE BLOOD COUNT 8.9 K/uL (4.8-10.8)
[2017-03-11 07:25] LABS: INR 1.7
[2017-03-11 07:47] LABS: CHLORIDE 104 mmol/L (98-107); POTASSIUM 4.4 mmol/L (3.6-5.2); SODIUM 138 mmol/L (132-148)
[2017-03-11 07:49] LABS: ALKALINE PHOSPHATASE 137 U/L (38-126); ALT/SGPT 40 U/L (21-72); AST/SGOT 38 U/L (17-59); BILIRUBIN,TOTAL 0.4 mg/dL (0.2-1.3); BLOOD UREA NITROGEN 17 mg/dL (9-20); CARBON DIOXIDE 23 mmol/L (22-30); GFR AFRICAN-AMERICAN > 60; GLUCOSE,RANDOM 92 mg/dL (75-110); PHOSPHOROUS 3.8 mg/dL (2.5-4.5); TOTAL PROTEIN 7.2 g/dL (6.3-8.3)
[2017-03-11 07:50] LABS: CALCIUM 9.3 mg/dl (8.6-10.4); MAGNESIUM 1.7 mg/dL (1.6-2.3)
[2017-03-11] MEDS: Tiotropium 18 mcg Cap For Inhalation INH SCH (08:05)
[2017-03-11] MEDS: Albuterol HFA 90 mcg/actuation (8 g) IH PRN (08:05)
[2017-03-11 09:06] VITALS: BP 143/83; PULSE 83; RESP 19; TEMP 97.9
[2017-03-11] MEDS: Emtricitabine-Tenofovir 200 mg-300 mg Tab PO SCH (09:17)
[2017-03-11] MEDS: Clotrimazole 1% Cream 15 GM TUBE TOP SCH (09:17)
[2017-03-11] MEDS: Atovaquone 750 mg/5 ml Susp UD PO SCH (09:17)
[2017-03-11] MEDS: POLYETHYLENE GLYCOL 3350 17 GM/Dose PACKET PO SCH (09:18)
[2017-03-11] MEDS: Enoxaparin 60 mg Syringe SC SCH (09:18)
[2017-03-11] MEDS: Saccharomyces Boulardi 250 mg Cap PO SCH (09:18)
[2017-03-11] MEDS: Nystatin 100,000 Units/ml Oral Susp 5 ml UD PO SCH (09:18)
--- NOTE | 2017-03-11 09:44 | CP.PCM.DIS ---
<Phyllis Mosqueda - Last Filed: 03/11/17 11:41> Provider - Provider Date of Admission: 03/06/17 13:50 Attending physician: Chemo Puentes MD Consults: ID: Dr. Arvin Lopez Time Spent in preparation of Discharge (in minutes): 55 Hospital Course - Lab Results Lab Results: Micro Results 03/08/17 06:00 Leg - Right Gram Stain - Final 03/08/17 06:00 Leg - Right Wound Culture - Preliminary Staphylococcus Aureus 03/08/17 17:20 Blood Blood Culture - Preliminary NO GROWTH AFTER 48 HOURS 03/08/17 16:30 Blood Blood Culture - Preliminary NO GROWTH AFTER 48 HOURS Most Recent Lab Values WBC 8.9 K/uL (4.8-10.8) 03/11/17 07:12 RBC 3.93 Mil/uL (4.40-5.90) L 03/11/17 07:12 Hgb 11.5 g/dL (12.0-18.0) L 03/11/17 07:12 Hct 34.1 % (35.0-51.0) L 03/11/17 07:12 MCV 86.8 fL (80.0-94.0) 03/11/17 07:12 MCH 29.1 pg (27.0-31.0) 03/11/17 07:12 MCHC 33.5 g/dL (33.0-37.0) 03/11/17 07:12 RDW 16.8 % (11.5-14.5) H 03/11/17 07:12 Plt Count 190 K/uL (130-400) 03/11/17 07:12 MPV 8.2 fL (7.2-11.7) 03/11/17 07:12 Neut % (Auto) 70.0 % (50.0-75.0) 03/11/17 07:12 Lymph % (Auto) 19.5 % (20.0-40.0) L 03/11/17 07:12 [place] % (Auto) 4.7 % (0.0-10.0) 03/11/17 07:12 Eos % (Auto) 5.3 % (0.0-4.0) H 03/11/17 07:12 Baso % (Auto) 0.5 % (0.0-2.0) 03/11/17 07:12 Neut # 6.2 K/uL (1.8-7.0) 03/11/17 07:12 Lymph # 1.7 K/uL (1.0-4.3) 03/11/17 07:12 [place] # 0.4 K/uL (0.0-0.8) 03/11/17 07:12 Eos # 0.5 K/uL (0.0-0.7) 03/11/17 07:12 Baso # 0.0 K/uL (0.0-0.2) 03/11/17 07:12 Neutrophils % (Manual) 78 % (50-75) H 03/09/17 06:08 Band Neutrophils % 11 % (0-2) H* 03/09/17 06:08 Lymphocytes % (Manual) 6 % (20-40) L 03/09/17 06:08 Monocytes % (Manual) 2 % (0-10) 03/09/17 06:08 Eosinophils % (Manual) 3 % (0-4) 03/09/17 06:08 Differential Comment 03/06/17 07:40 Toxic Granulation Present 03/09/17 06:08 Platelet Estimate Normal (NORMAL) 03/09/17 06:08 Large Platelets Present 03/09/17 06:08 Polychromasia Slight 03/09/17 06:08 Hypochromasia (manual) Slight 03/09/17 06:08 Poikilocytosis (manual Slight 03/09/17 06:08 Anisocytosis (manual) Slight 03/09/17 06:08 Ovalocytes Slight 03/09/17 06:08 PT 19.2 SECONDS (9.7-12.2) H 03/11/17 07:12 INR 1.7 03/11/17 07:12 APTT 42 SECONDS (21-34) H D 03/06/17 10:45 Sodium 138 mmol/L (132-148) 03/11/17 07:12 Potassium 4.4 mmol/L (3.6-5.2) 03/11/17 07:12 Chloride 104 mmol/L (98-107) 03/11/17 07:12 Carbon Dioxide 23 mmol/L (22-30) 03/11/17 07:12 Anion Gap 15 (10-20) 03/11/17 07:12 BUN 17 mg/dL (9-20) 03/11/17 07:12 Creatinine 1.0 MG/DL (0.8-1.5) 03/11/17 07:12 Est GFR ( Amer) > 60 03/11/17 07:12 Est GFR (Non-Af Amer) > 60 03/11/17 07:12 Random Glucose 92 mg/dL (75-110) 03/11/17 07:12 Hemoglobin A1c 5.4 % (4.2-6.5) 03/06/17 07:40 Calcium 9.3 mg/dl (8.6-10.4) 03/11/17 07:12 Phosphorus 3.8 mg/dL (2.5-4.5) 03/11/17 07:12 Magnesium 1.7 mg/dL (1.6-2.3) 03/11/17 07:12 Iron 57 ug/dL (49-181) 03/06/17 07:40 TIBC 239 ug/dL (250-450) L 03/06/17 07:40 % Saturation 24 (20-55) 03/06/17 07:40 Total Bilirubin 0.4 mg/dL (0.2-1.3) 03/11/17 07:12 Direct Bilirubin 0.4 mg/dL (0.0-0.4) 03/07/17 06:32 AST 38 U/L (17-59) 03/11/17 07:12 ALT 40 U/L (21-72) 03/11/17 07:12 Alkaline Phosphatase 137 U/L (38-126) H 03/11/17 07:12 Total Protein 7.2 g/dL (6.3-8.3) 03/11/17 07:12 Albumin 3.7 g/dL (3.5-5.0) 03/11/17 07:12 Globulin 3.5 gm/dL (2.2-3.9) 03/11/17 07:12 Albumin/Globulin Ratio 1.0 (1.0-2.1) 03/11/17 07:12 Triglycerides 130 mg/dL (0-149) 03/06/17 07:40 Cholesterol 138 mg/dL (0-199) 03/06/17 07:40 LDL Cholesterol Direct 80 mg/dL (0-129) 03/06/17 07:40 HDL Cholesterol 28 mg/dL (30-70) L 03/06/17 07:40 Lipase 29 U/L (23-300) 03/05/17 11:54 Vitamin B12 342 pg/mL (239-931) 03/06/17 07:40 Folate 13.5 ng/mL 03/06/17 07:40 TSH 3rd Generation 1.75 mIU/L (0.46-4.68) 03/06/17 07:40 Urine Color Yellow (YELLOW) 03/05/17 13:37 Urine Clarity Clear (Clear) 03/05/17 13:37 Urine pH 6.0 (5.0-8.0) 03/05/17 13:37 Ur Specific [place] 1.008 (1.003-1.030) 03/05/17 13:37 Urine Protein Negative mg/dL (NEGATIVE) 03/05/17 13:37 Urine Glucose (UA) Normal mg/dL (Normal) 03/05/17 13:37 Urine Ketones Negative mg/dL (NEGATIVE) 03/05/17 13:37 Urine Blood Negative (NEGATIVE) 03/05/17 13:37 Urine Nitrate Negative (NEGATIVE) 03/05/17 13:37 Urine Bilirubin Negative (NEGATIVE) 03/05/17 13:37 Urine Urobilinogen Normal mg/dL (0.2-1.0) 03/05/17 13:37 Ur Leukocyte Esterase Neg Gennaro/uL (Negative) 03/05/17 13:37 Urine WBC (Auto) < 1 /hpf (0-5) 03/05/17 13:37 Urine RBC (Auto) < 1 /hpf (0-3) 03/05/17 13:37 Ur Squamous Epith Cells < 1 /hpf (0-5) 03/05/17 13:37 Absolute Lymphs (Flow) 511 Cells/mcL (850-3900) L 03/06/17 07:40 % CD4 Cells 6 Percent (30-61) L 03/06/17 07:40 Absolute CD4 Count 30 Cells/mcL (490-1740) L 03/06/17 07:40 T-Help/Suppress Ratio 0.10 Ratio (0.86-5.00) L 03/06/17 07:40 % CD8 Cells 57 Percent (12-42) H 03/06/17 07:40 Absolute CD8 Count 291 Cells/mcL (180-1170) 03/06/17 07:40 HIV-1 RNA copies/mL 455781 copies/mL (<20) H 03/06/17 07:40 HIV-1 RNA logcopies/mL 5.98 (<1.30) H 03/06/17 07:40 - Hospital Course Hospital Course: Upon Admission: Medicine Note for Dr. Arvin Puentes CC: " abdominal pain" HPI: 46 year old male with PMH of HIV/AIDS, DVT in right leg with IVC filter, Asthma, COPD, BPH, abdominal hernia, seizures, bipolar disorder, and anxiety presents with diffuse abdominal pain for the past 1.5 weeks. He reports 5/10 constant abdominal pain. He tried taking OTC meds like milk of magnesia, enemas , oils all of which did not alleviate his symptoms. He notes that Gabapentin has helped decrease his pain. He states that he had a small, liquidy bowel movement this morning and continues to pass flatus. He reports at least 3 episodes of urinary incontinence due to his BPH. He also notes burning sensation in bilateral lower extremities, chronic in nature. He states that his appetite is good. He denies fever, chills, vision or hearing changes, sore throat, chest pain, palpitations, SOB, cough, N/V/D. PMH: HIV/AIDS, DVT in right leg with IVC filter, Asthma, COPD, BPH, seizures, bipolar disorder, anxiety, and abdominal hernia PSH: Cholescystectomy - November 2013, IVC filter Jun 2004, Rhinoplasty - 1989, Neuroplasty at [facility] - 1993 Meds: PER SEP Allergies: Bactrim - drug fever, Zosyn - Neutropenia, Capascin - Redness Social: smokes 27 pack year, drinks EtOH socially, social cocaine use in past, lives alone, currently unemployed. FHx: Mother - DM; Father - prostate Ca; Brother - testicular Ca, BPH; Grandmother - Breast Ca; Sister - Breast Ca PMD: Dr. Fredis Pa @ [facility] Throughout Hospital Course: Patient was admitted for abdominal pain. Patient had an abdominal CT scan which showed moderate constipation. Patient was given colace, miralax, Golytley and mineral oil. This relieved his constipation. ID was consulted for his history HIV/AIDS. CD4/CD8 = 0.10, CD4 Count = 30 Patient was also restarted on his HIV medications, TIVICAY AND TRUVADA. Dr. Garcia was consulted due to the patient's pancytopenia, he was administered Neupogen x 2 doses to increase leukocyte production. Patient responded well. There was questionable Cellulitis, unlikely. Right leg is not warm, some pitting edema secondary to DVT. The erythema resolves when leg is raised and held. After speaking with Dr. Lopez, she agrees with this assessment and now that the patient is no longer leukopenic , we can DC the Tygacil. Patient was restarted on home medications for his HTN, Bipolar Disorder, Asthma/COPD, Seizure, and neuropathy. Patient's INR was subtherapeutic for hx of PE and DVT, with IVC filter. He was given Coumadin 7.5mg PO QHS to help increase the INR. Today the INR is therapeutic. Patient is to follow up with HIV clinic and to have weekly INR to maintain in therapeutic range. Call will be made to Dr. Ny, HIV PCP @ [facility]. [phone] extension 2. We will notify them of the medications that were started here, so they can decided what to prescribe to the patient. This is a brief summary of the patient's hospital course. Please review EMR for the full record. Discharge Exam - Head Exam Head Exam: NORMAL INSPECTION, NORMOCEPHALIC - Eye Exam Eye Exam: Normal appearance Pupil Exam: NORMAL ACCOMODATION - ENT Exam ENT Exam: Mucous Membranes Moist Additional comments: Stomatosis on right side of mouth. Right deviated nasal septum. No pharyngitis, no thrush. No lymphadenopathy, no thyromegaly. - Respiratory Exam Respiratory Exam: Clear to PA & Lateral, NORMAL BREATHING PATTERN. absent: Decreased Breath Sounds - Cardiovascular Exam Cardiovascular Exam: REGULAR RHYTHM - GI/Abdominal Exam GI & Abdominal Exam: Normal Bowel Sounds, Soft. absent: Distended, Tenderness - Extremities Exam Extremities exam: pedal edema, tenderness, pedal pulses present Additional comments: Right leg edema with signs of chronic venous insufficiency; reddish brown in color that lessens with leg elevation. Varicose veins present in bilateral lower extremities. Dorsalis Pedis pulses present and symmetric bilaterally. Right medial upper calf eschar ulcer 1 x 0.6 cm, Right medial lower calf stage 1 ulcer 1 x 0.3 cm, Right lateral calf eschar ulcer 0.5 x 0.5cm. Onchyomycosis in bilateral toes. - Neurological Exam Neurological exam: Alert, CN II-XII Intact, Oriented x3 - Psychiatric Exam Psychiatric exam: Normal Affect, Normal Mood - Skin Skin Exam: Dry, Intact, Normal Color, Warm Discharge Plan - Follow Up Plan Condition: STABLE Disposition: HOME/ ROUTINE Instructions: Warfarin (By mouth), Constipation (DC), Constipation (GEN), Deep Venous Thrombosis (DC), Acute Abdominal Pain (DC) Additional Instructions: Patient is to continue taking all his home medications, ESPECIALLY his anti- viral medications and his Coumadin 5mg by mouth DAILY. Please have your INR checked weekly. Please follow up with his Primary Care Physicians at [facility] in [place]. Extensive conversation with patient concerning the importance of compliance with his treatment regimen. He expressed understanding. Please eat a COUMADIN diet avoiding leafy greens. Continue to take prune juice, have a diet high in fiber to prevent constipation. Call will be made to Dr. Ny, HIV PCP @ [facility]. [phone] extension 2. We will notify them of the medications that were started here, so they can decided what to prescribe to the patient. Please return to the ED if your symptoms, worsen or return. Referrals: Gurinder Best MD [Staff Provider] - Antonino Garcia MD [Staff Provider] - Aleah Lopez MD [Staff Provider] - <Yovani Anderson - Last Filed: 03/11/17 15:30> Provider - Provider Date of Admission: 03/06/17 13:50 Attending physician: Chemo Puentes MD Hospital Course - Lab Results Lab Results: Micro Results 03/08/17 06:00 Leg - Right Gram Stain - Final 03/08/17 06:00 Leg - Right Wound Culture - Final Staphylococcus Aureus 03/08/17 17:20 Blood Blood Culture - Preliminary NO GROWTH AFTER 48 HOURS 03/08/17 16:30 Blood Blood Culture - Preliminary NO GROWTH AFTER 48 HOURS Most Recent Lab Values WBC 8.9 K/uL (4.8-10.8) 03/11/17 07:12 RBC 3.93 Mil/uL (4.40-5.90) L 03/11/17 07:12 Hgb 11.5 g/dL (12.0-18.0) L 03/11/17 07:12 Hct 34.1 % (35.0-51.0) L 03/11/17 07:12 MCV 86.8 fL (80.0-94.0) 03/11/17 07:12 MCH 29.1 pg (27.0-31.0) 03/11/17 07:12 MCHC 33.5 g/dL (33.0-37.0) 03/11/17 07:12 RDW 16.8 % (11.5-14.5) H 03/11/17 07:12 Plt Count 190 K/uL (130-400) 03/11/17 07:12 MPV 8.2 fL (7.2-11.7) 03/11/17 07:12 Neut % (Auto) 70.0 % (50.0-75.0) 03/11/17 07:12 Lymph % (Auto) 19.5 % (20.0-40.0) L 03/11/17 07:12 [place] % (Auto) 4.7 % (0.0-10.0) 03/11/17 07:12 Eos % (Auto) 5.3 % (0.0-4.0) H 03/11/17 07:12 Baso % (Auto) 0.5 % (0.0-2.0) 03/11/17 07:12 Neut # 6.2 K/uL (1.8-7.0) 03/11/17 07:12 Lymph # 1.7 K/uL (1.0-4.3) 03/11/17 07:12 [place] # 0.4 K/uL (0.0-0.8) 03/11/17 07:12 Eos # 0.5 K/uL (0.0-0.7) 03/11/17 07:12 Baso # 0.0 K/uL (0.0-0.2) 03/11/17 07:12 Neutrophils % (Manual) 64 % (50-75) 03/11/17 07:12 Band Neutrophils % 6 % (0-2) H 03/11/17 07:12 Lymphocytes % (Manual) 11 % (20-40) L 03/11/17 07:12 Reactive Lymphs % 2 % (0-0) H 03/11/17 07:12 Monocytes % (Manual) 7 % (0-10) 03/11/17 07:12 Eosinophils % (Manual) 4 % (0-4) 03/11/17 07:12 Basophils % (Manual) 1 % (0-2) 03/11/17 07:12 Metamyelocytes % 3 % (0-0) H 03/11/17 07:12 Myelocytes % 2 % (0-0) H 03/11/17 07:12 Differential Comment 03/06/17 07:40 Toxic Granulation Present 03/09/17 06:08 Platelet Estimate Normal (NORMAL) 03/11/17 07:12 Large Platelets Present 03/09/17 06:08 Polychromasia Slight 03/09/17 06:08 Hypochromasia (manual) Slight 03/09/17 06:08 Poikilocytosis (manual Slight 03/11/17 07:12 Anisocytosis (manual) Slight 03/11/17 07:12 Ovalocytes Slight 03/11/17 07:12 PT 19.2 SECONDS (9.7-12.2) H 03/11/17 07:12 INR 1.7 03/11/17 07:12 APTT 42 SECONDS (21-34) H D 03/06/17 10:45 Sodium 138 mmol/L (132-148) 03/11/17 07:12 Potassium 4.4 mmol/L (3.6-5.2) 03/11/17 07:12 Chloride 104 mmol/L (98-107) 03/11/17 07:12 Carbon Dioxide 23 mmol/L (22-30) 03/11/17 07:12 Anion Gap 15 (10-20) 03/11/17 07:12 BUN 17 mg/dL (9-20) 03/11/17 07:12 Creatinine 1.0 MG/DL (0.8-1.5) 03/11/17 07:12 Est GFR ( Amer) > 60 03/11/17 07:12 Est GFR (Non-Af Amer) > 60 03/11/17 07:12 Random Glucose 92 mg/dL (75-110) 03/11/17 07:12 Hemoglobin A1c 5.4 % (4.2-6.5) 03/06/17 07:40 Calcium 9.3 mg/dl (8.6-10.4) 03/11/17 07:12 Phosphorus 3.8 mg/dL (2.5-4.5) 03/11/17 07:12 Magnesium 1.7 mg/dL (1.6-2.3) 03/11/17 07:12 Iron 57 ug/dL (49-181) 03/06/17 07:40 TIBC 239 ug/dL (250-450) L 03/06/17 07:40 % Saturation 24 (20-55) 03/06/17 07:40 Total Bilirubin 0.4 mg/dL (0.2-1.3) 03/11/17 07:12 Direct Bilirubin 0.4 mg/dL (0.0-0.4) 03/07/17 06:32 AST 38 U/L (17-59) 03/11/17 07:12 ALT 40 U/L (21-72) 03/11/17 07:12 Alkaline Phosphatase 137 U/L (38-126) H 03/11/17 07:12 Total Protein 7.2 g/dL (6.3-8.3) 03/11/17 07:12 Albumin 3.7 g/dL (3.5-5.0) 03/11/17 07:12 Globulin 3.5 gm/dL (2.2-3.9) 03/11/17 07:12 Albumin/Globulin Ratio 1.0 (1.0-2.1) 03/11/17 07:12 Triglycerides 130 mg/dL (0-149) 03/06/17 07:40 Cholesterol 138 mg/dL (0-199) 03/06/17 07:40 LDL Cholesterol Direct 80 mg/dL (0-129) 03/06/17 07:40 HDL Cholesterol 28 mg/dL (30-70) L 03/06/17 07:40 Lipase 29 U/L (23-300) 03/05/17 11:54 Vitamin B12 342 pg/mL (239-931) 03/06/17 07:40 Folate 13.5 ng/mL 03/06/17 07:40 TSH 3rd Generation 1.75 mIU/L (0.46-4.68) 03/06/17 07:40 Urine Color Yellow (YELLOW) 03/05/17 13:37 Urine Clarity Clear (Clear) 03/05/17 13:37 Urine pH 6.0 (5.0-8.0) 03/05/17 13:37 Ur Specific [place] 1.008 (1.003-1.030) 03/05/17 13:37 Urine Protein Negative mg/dL (NEGATIVE) 03/05/17 13:37 Urine Glucose (UA) Normal mg/dL (Normal) 03/05/17 13:37 Urine Ketones Negative mg/dL (NEGATIVE) 03/05/17 13:37 Urine Blood Negative (NEGATIVE) 03/05/17 13:37 Urine Nitrate Negative (NEGATIVE) 03/05/17 13:37 Urine Bilirubin Negative (NEGATIVE) 03/05/17 13:37 Urine Urobilinogen Normal mg/dL (0.2-1.0) 03/05/17 13:37 Ur Leukocyte Esterase Neg Gennaro/uL (Negative) 03/05/17 13:37 Urine WBC (Auto) < 1 /hpf (0-5) 03/05/17 13:37 Urine RBC (Auto) < 1 /hpf (0-3) 03/05/17 13:37 Ur Squamous Epith Cells < 1 /hpf (0-5) 03/05/17 13:37 Absolute Lymphs (Flow) 511 Cells/mcL (850-3900) L 03/06/17 07:40 % CD4 Cells 6 Percent (30-61) L 03/06/17 07:40 Absolute CD4 Count 30 Cells/mcL (490-1740) L 03/06/17 07:40 T-Help/Suppress Ratio 0.10 Ratio (0.86-5.00) L 03/06/17 07:40 % CD8 Cells 57 Percent (12-42) H 03/06/17 07:40 Absolute CD8 Count 291 Cells/mcL (180-1170) 03/06/17 07:40 HIV-1 RNA copies/mL 256672 copies/mL (<20) H 03/06/17 07:40 HIV-1 RNA logcopies/mL 5.98 (<1.30) H 03/06/17 07:40 Attending/Attestation - Attestation I have personally seen and examined this patient.: Yes I have fully participated in the care of the patient.: Yes I have reviewed all pertinent clinical information, including history, physical exam and plan: Yes Notes (Text): 03/11/17 15:29 Patient was seen and examined at bedside with the resident. Patient appears comfortable and is very anxious for discharge We will discharge patient home on Coumadin and his HIV medication Called the patient's primary clinic for continuation of medication. I discussed the plan of care with the resident and agree with the discharge note by the resident.
[2017-03-11 10:34] LABS: BASOPHIL 1 % (0-2); EOSINOPHIL 4 % (0-4); METAMYELOCYTE 3 % (0-0); MYELOCYTE 2 % (0-0); NEUTROPHIL 64 % (50-75); REACTIVE LYMPHOCYTES 2 % (0-0); TOTAL CELLS COUNTED 100
[2017-03-14 13:42] VITALS: O2SAT 97
[2017-03-22 02:46] LABS: HIV-1 GENOTYPE DETECTED
== END 2017-03-11 13:03 | disposition home or self-care (01) | DRG 551 ==
LOC: C.ER 10:25 → C.9E 19:04 → C.3T 19:56 → OBSVTOIN 03-06 13:50
PROVIDERS: ADMIT Family Medicine; ATTEND Family Medicine
DX: K59.00 Constipation, unspecified (principal); B20 Human immunodeficiency virus [HIV] disease; D61.818 Other pancytopenia; I82.91 Chronic embolism and thrombosis of unspecified vein; J44.9 Chronic obstructive pulmonary disease, unspecified; L03.115 Cellulitis of right lower limb; F14.90 Cocaine use, unspecified, uncomplicated; D70.9 Neutropenia, unspecified; I10 Essential (primary) hypertension; F31.9 Bipolar disorder, unspecified; I87.2 Venous insufficiency (chronic) (peripheral); G62.9 Polyneuropathy, unspecified; N39.498 Other specified urinary incontinence; N40.1 Benign prostatic hyperplasia with lower urinary tract symptoms; Z83.3 Family history of diabetes mellitus; Z80.3 Family history of malignant neoplasm of breast; Z80.42 Family history of malignant neoplasm of prostate; Z80.43 Family history of malignant neoplasm of testis; R79.1 Abnormal coagulation profile; Z79.01 Long term (current) use of anticoagulants; Z79.899 Other long term (current) drug therapy; Z86.711 Personal history of pulmonary embolism; Z87.01 Personal history of pneumonia (recurrent); Z91.19 Patient's noncompliance with other medical treatment and regimen

== ENCOUNTER 2017-03-21 06:32 | Emergency (ER) | payer MEDICAID ==
[2017-03-21 06:55] VITALS: RESP 16
--- NOTE | 2017-03-21 07:40 | C.PDOC ---
History Of Present Illness 46 year old male with PMHx of HIV/AIDS (semi-compliant with meds), neutropenia associated with AIDS, right PVD, DVT (with IVC filter) with chronic pain, hx of Right statis dermatitis, bipolar disorder, come in for evaluation of Right leg pain and some swelling worsening for past few days. Pt admits, " walking a lot". Pt sts, takes Gabapentin without significant improvement in pain. Otherwise, pt denies fever, chills, headache, dizziness, CP, SOB, dyspnea, diaphoresis, abd. pain, N/V, denies new weakness, sensory or vascular deficits to B/L LES. Ambulatory to ED, not in any apparent distress. Time Seen by Provider: 03/21/17 07:36 Chief Complaint (Nursing): Lower Extremity Problem/Injury History Per: Patient Onset/Duration Of Symptoms: Gradual Current Symptoms Are (Timing): Still Present Past Medical History Reviewed: Historical Data, Nursing Documentation, Vital Signs Vital Signs: Last Vital Signs Temp 98.7 F 03/21/17 09:31 Pulse 75 03/21/17 09:31 Resp 16 03/21/17 09:31 BP 114/77 03/21/17 09:31 Pulse Ox 98 03/21/17 09:44 - Medical History PMH: Anemia, Anxiety, Asthma, Bipolar Disorder, COPD, Depression, Deep Vein Thrombosis, Gall Bladder Disease, HIV, HTN, Pneumonia, Seizures Denies: Chronic Kidney Disease Surgical History: Cholecystectomy (december) Family History: States: Unknown Family Hx - Social History Hx Tobacco Use: Yes (heavy smoker) Hx Alcohol Use: No Hx Substance Use: No - Immunization History Hx Tetanus Toxoid Vaccination: No Hx Influenza Vaccination: Yes Hx Pneumococcal Vaccination: Yes (07/2014) Review Of Systems Except As Marked, All Systems Reviewed And Found Negative. Constitutional: Negative for: Fever, Chills Eyes: Negative for: Vision Change ENT: Negative for: Ear Discharge, Nose Discharge, Throat Pain, Throat Swelling Cardiovascular: Negative for: Chest Pain, Palpitations, Edema, Light Headedness Respiratory: Negative for: Cough, Shortness of Breath, Wheezing Gastrointestinal: Negative for: Nausea, Vomiting, Abdominal Pain Genitourinary: Negative for: Dysuria Musculoskeletal: Positive for: Leg Pain. Negative for: Neck Pain, Back Pain Skin: Positive for: Rash Neurological: Negative for: Weakness, Numbness, Altered Mental Status, Headache , Dizziness Physical Exam - Physical Exam Appears: Well, Non-toxic, No Acute Distress Skin: Normal Color, Warm, Dry Eye(s): bilateral: PERRL Nose: No Flaring, No Discharge Oral Mucosa: Moist, No Drooling Throat: No Drooling Neck: Normal ROM, No Midline Cervical Tenderness, No Paracervical Tenderness, No Step Off Deformity, Supple Cardiovascular: Rhythm Regular Respiratory: No Stridor, No Wheezing Gastrointestinal/Abdominal: Soft, No Tenderness, No Distention, No Guarding Back: Normal Inspection Extremity: Normal ROM, Tenderness (Right lower), Capillary Refill (less than 2sec to B/L LEs), No Deformity, Swelling (mild trace edema to Right ankle.), Other (diffuse Right lower leg skin discoloration due to chronic PVD with small 2 superficial open wounds. No warmth or cellulitis.) Pulses: Right Femoral: Normal, Right Dorsalis Pedis: Normal Neurological/Psych: Oriented x3, Normal Speech, Normal Motor, Normal Sensation, Normal Reflexes ED Course And Treatment - Laboratory Results Result Diagrams: 03/21/17 07:50 03/21/17 07:50 Lab Interpretation: No Changes Compared To Prior Results O2 Sat by Pulse Oximetry: 98 Pulse Ox Interpretation: Normal Progress Note: Case discusssed with ED attending DR. Bazan and blood work review. Noted leukopenia that appears similar to compare to previous visit to ED from 03/05/17, when WBC 1.8, CD4 count 30. Leukopenia appears chronic. At this poitn no inpatient tx recommend and Dr. Bazan recommend discharge with outpt f/u now. Results review and discussed with pt. Pt admits, not fully compliant with antiviral medication. Otherwise, pt denies fever, chills, wound draining. On re -eval, afebrile, hemodynamicaly stable. Non-toxic. Neck: Supple. ENT: no acute findings. Lungs: CTA B/L, BS equal B/L. Abd: benign, (-) guarding, (-) rebound. RLE; exam c/w chronic PVD, no new weaness, good palpable peripheral pulses. No evidence of cellulitis. neurologicaly intact. Pt advised and ref. to f/u with his PMD at [facility] in 1-2 days for re-evaluation. return to ED if anyw orsening or new changes. Pt unerstand and agrees with discharges. Disposition Counseled Patient/Family Regarding: Diagnosis, Need For Followup, Rx Given - Disposition Referrals: [facility] [Outside] Disposition: HOME/ ROUTINE Disposition Time: 09:13 Condition: STABLE Additional Instructions: Take pain medication as prescribed Follow up with PMD, ID in 1-2 days for re-evaluation and further treatment. return to Ed if any worsening or new changes. Prescriptions: oxyCODONE/Acetaminophen [Percocet 5/325 mg Tab] 1 tab PO BID PRN #7 tab PRN Reason: Pain Instructions: Peripheral Vascular Disease (ED), Stasis Dermatitis (ED), AIDS ( DC) Forms: [employer] (Niuean) - Clinical Impression Clinical Impression: Neutropenia associated with acquired immune deficiency syndrome (AIDS), PVD ( peripheral vascular disease), Chronic deep vein thrombosis (DVT) of right lower extremity
[2017-03-21 08:00] LABS: BASO % 0.3 % (0.0-2.0); EOS # 0.1 K/uL (0.0-0.7); EOS % 5.6 % (0.0-4.0); HEMATOCRIT 30.9 % (35.0-51.0); LYMPH # 0.6 K/uL (1.0-4.3); LYMPH % 32.2 % (20.0-40.0); MEAN CELL VOLUME 87.4 fL (80.0-94.0); MEAN CORPUSCULAR HEMOGLOBIN 29.5 pg (27.0-31.0); MEAN CORPUSCULAR HGB CONC 33.8 g/dL (33.0-37.0); MEAN PLATELET VOLUME 7.1 fL (7.2-11.7); MONO # 0.1 K/uL (0.0-0.8); MONO % 7.3 % (0.0-10.0); NRBC % 0.2 % (0.0-2.0); RED CELL DISTRIBUTION WIDTH 17.2 % (11.5-14.5)
[2017-03-21 08:04] LABS: CHLORIDE 102 mmol/L (98-107); POTASSIUM 3.9 mmol/L (3.6-5.2); SODIUM 139 mmol/L (132-148)
[2017-03-21 08:06] LABS: GFR AFRICAN-AMERICAN > 60
[2017-03-21 08:07] LABS: BLOOD UREA NITROGEN 17 mg/dL (9-20); CALCIUM 8.6 mg/dl (8.6-10.4); CARBON DIOXIDE 25 mmol/L (22-30); GLUCOSE,RANDOM 93 mg/dL (75-110)
[2017-03-21 08:08] LABS: INR 1.2
[2017-03-21 08:14] LABS: WHITE BLOOD COUNT 1.8 K/uL (4.8-10.8)
[2017-03-21 09:32] VITALS: BP 114/77; PULSE 75; TEMP 98.7
[2017-03-21 09:34] VITALS: O2SAT 98
== END 2017-03-21 09:44 | disposition home or self-care (01) ==
LOC: C.ER 06:32
DX: I73.9 Peripheral vascular disease, unspecified (principal); D70.9 Neutropenia, unspecified; B20 Human immunodeficiency virus [HIV] disease; I82.5Z1 Chronic embolism and thrombosis of unspecified deep veins of right distal lower extremity
CPT/HCPCS: 80048; 83880; 84484; 85025; 85610; 85730; 96374; 99285; J2270